=== PATIENT | female | born 1945 | race African-American/Black ===

== ENCOUNTER 2019-11-13 00:11 | Inpatient (IN) | payer MEDICARE, MEDICAID ==
[~2019-11-13] VITALS: Ht 167.6 cm; Wt 73.5 kg
[2019-11-13] VITALS (9 sets, daily range): BP systolic 128–157; BP diastolic 72–104
--- NOTE | 2019-11-13 00:11 | NUR ---
ED Nurse Note: PATIENT BROUGHT IN BY AMBULANCE SEDRICK RA 27 FROM HOME C/O RESPIRATORY DISTRESS AND AMS X 1730. DAUGHTER STATES WORSENING SYMPTOMS AFTERWARDS. RECENTLY DISCHARGED FROM [facility] ON MONDAY
--- NOTE | 2019-11-13 00:45 | NUR ---
ED Nurse Note: IV ACCESS ESTABLISHED; BLOOD COLLECTED; SENT DOWN TO LAB.
[2019-11-13 01:14] LABS: HEMATOCRIT 43.8 % (37.0-47.0); HEMOGLOBIN 14.1 G/DL (12.0-16.0); MEAN CORPUSCULAR VOLUME 92 FL (80-99); PLATELET COUNT 309 K/UL (150-450); RED BLOOD COUNT 4.74 M/UL (4.20-5.40); RED CELL DISTRIBUTION WIDTH 14.5 % (11.6-14.8); WHITE BLOOD COUNT 19.2 K/UL (4.8-10.8)
[2019-11-13 01:26] LABS: ANION GAP 16 mmol/L (5-15); BLOOD UREA NITROGEN 34 mg/dL (7-18); CALCIUM 10.1 MG/DL (8.5-10.1); CARBON DIOXIDE 22 MMOL/L (21-32); CHLORIDE 98 MMOL/L (98-107); POTASSIUM 5.2 MMOL/L (3.5-5.1); SODIUM 136 MMOL/L (136-145)
[2019-11-13 01:37] LABS: ALANINE AMINOTRANSFERASE 205 U/L (12-78); ALBUMIN 3.7 G/DL (3.4-5.0); ALBUMIN/GLOBULIN RATIO 0.6 (1.0-2.7); ALKALINE PHOSPHATASE 106 U/L (46-116); ASPARTATE AMINO TRANSFERASE 175 U/L (15-37); BILIRUBIN,TOTAL 1.6 MG/DL (0.2-1.0)
[2019-11-13 01:41] LABS: BILIRUBIN,DIRECT 0.2 MG/DL (0.0-0.3)
--- NOTE | 2019-11-13 01:56 | Emergency Room Report ---
History of Present Illness General Chief Complaint: Dyspnea/Respdistress Source: EMS Present Illness HPI 74-year-old female brought in by ambulance for respiratory distress. Patient's history is limited due to difficulty breathing. Patient has a history of ovarian carcinoma and congestive heart failure. As per EMS patient's family stated that she was altered mental status generalized weakness. Initial blood sugar of 123. IV was placed pickiness and team twelve-lead EKG with no changes. Allergies: Coded Allergies: No Known Allergies (Unverified , 11/13/19) Patient History Now: No Nursing Documentation-PMH Hx Cardiac Problems: Yes - CHF Hx Hypertension: Yes Hx Cancer: Yes - ovarian Review of Systems All Other Systems: limited - Due to shortness of breath Physical Exam Vital Signs Date Time Temp Pulse Resp B/P (MAP) Pulse Ox O2 Delivery O2 Flow Rate FiO2 11/13/19 00:08 98.4 89 22 154/104 (121) 88 Non-Rebreather 15.0 Sp02 EP Interpretation: reviewed General Appearance: well appearing, non-toxic, moderate distress Head: normocephalic, atraumatic Eyes: bilateral eye normal inspection ENT: hearing grossly normal, EOM grossly intact, moist mucus membranes Neck: supple Respiratory: chest non-tender, lungs clear, respiratory distress, rales, speaking full sentences Cardiovascular #1: regular rate, rhythm, normal capillary refill, edema Cardiovascular #2: 2+ radial (R), 2+ radial (L) Gastrointestinal: soft, non-distended Rectal: deferred Musculoskeletal: moves extm spontaneously, no lower extremity edema Neurologic: grossly normal Psychiatric: mood/affect normal Skin: warm/dry, normal turgor Procedures Critical Care Time Critical Care Time Critical care time included 30 minutes for reevaluation of respiratory distress , hypoxia. This did not include teachable, procedural billable time. Medical Decision Making ER Course Presents with respiratory distress found to have rales on exam. Patient with history of CHF and ovarian carcinoma. However history is limited due to difficulty breathing.Initial pulse ox noted to be 88% on nonrebreather. Differential includes ACS, acute NJ, PE, fluid overload, congestive heart failure exacerbation, pleural effusion, asthma, Order initial ABG to evaluate patient's oxygen status We will perform chest x-ray, lab testing, EKG. Lab Results Impression Patient's lab testing noted to have increased WBC count of 19.2, Chemistry noted to have mild CLARK, elevated C-reactive protein, ABG with PaO2 of 63. Chest X-Ray Diagnostic Results Chest X-Ray Diagnostic Results : Chest X-Ray Ordered: Yes # of Views/Limited/Complete: 1 View Indication: Shortness of Breath EP Interpretation: Yes Interpretation: no pneumothorax Impression: Other - Chest x-ray shows increased vascular markings on right lower lobe concerning for consolidation versus fluid overload. No signs of pneumothorax. Last Vital Signs Date Time Temp Pulse Resp B/P (MAP) Pulse Ox O2 Delivery O2 Flow Rate FiO2 11/13/19 00:08 98.4 89 22 154/104 (121) 88 Non-Rebreather 15.0 Reevaluation Impression Patient's initial ABG, patient placed on BiPAP. Will reevaluate. Noted decreased PaO2 patient's care discussed with Dr. Jones. Patient admitted for pneumonia, respiratory distress, CHF and fluid overload. Disposition: ADMITTED INPATIENT Scripts Hydroxychloroquine Sulfate (HYDROXYCHLOROQUINE SULFATE) 200 Mg Tablet 200 MG ORAL DAILY for 30 Days, #30 TAB Prov: Nikunj Jones MD 11/17/19 Gabapentin (Neurontin) 300 Mg Capsule 300 MG ORAL BID for 30 Days, #60 CAP Prov: Nikunj Jones MD 11/17/19 Folic Acid* (FOLIC ACID*) 1 Mg Tablet 1 MG ORAL DAILY for 30 Days, #30 TAB Prov: Nikunj Jones MD 11/17/19 Furosemide* (LASIX*) 20 Mg Tablet 20 MG ORAL DAILY for 30 Days, #30 TAB Prov: Nikunj Jones MD 11/17/19 Carvedilol (Coreg) 6.25 Mg Tablet 6.25 MG ORAL EVERY 12 HOURS for 30 Days, #60 TAB Prov: Nikunj Jones MD 11/17/19 Atorvastatin (Lipitor) 80 Mg Tablet 80 MG ORAL BEDTIME for 30 Days, #30 TAB Prov: Nikunj Jones MD 11/17/19 Aspirin* (ASPIRIN*) 81 Mg Tab.chew 81 MG ORAL DAILY for 30 Days, #30 TAB Prov: Nikunj Jones MD 11/17/19 Allopurinol* (ALLOPURINOL*) 100 Mg Tablet 300 MG ORAL DAILY for 30 Days, #30 TAB Prov: Nikunj Jones MD 11/17/19 Mateo Granado M.D. Nov 13, 2019 01:56
--- NOTE | 2019-11-13 01:56 | NUR ---
ED Nurse Note: XRAY AT BEDSIDE. RT AT BEDSIDE, PT PLACED ON BIPAP.
--- NOTE | 2019-11-13 02:00 | NUR ---
ED Nurse Note: attempted to collect urine. patient unable to urinate on bed marques. offered straight cath. patient and daughter refused. notified ermd.
[2019-11-13] MEDS ORDERED: Vancomycin 1.5 GM in NS 275 ML IVPB ONE (02:30)
[2019-11-13] MEDS ORDERED: Cefepime HCl 2 GM in NS 110 ML IV ONE (02:30)
[2019-11-13] MEDS ORDERED: POTASSIUM20 MEQ/100 IV (03:29)
[2019-11-13] MEDS ORDERED: OMEPRAZOLE20 M2 ORAL (03:29)
[2019-11-13] MEDS ORDERED: GABAPENTIN300 MG/61 ORAL (03:29)
[2019-11-13] MEDS ORDERED: LIPITOR80 MG ORAL (03:29)
[2019-11-13] MEDS ORDERED: DULOXETINE HCL30 MG PO (03:29)
[2019-11-13] MEDS ORDERED: FUROSEMIDE40 MG/5 ML ORAL (03:29)
[2019-11-13] MEDS ORDERED: METOPROLOL TART25 MG ORAL (03:29)
[2019-11-13] MEDS ORDERED: AMLODIPINE BESY10 MG ORAL (03:29)
[2019-11-13] MEDS ORDERED: HYDROXYCHLOROQ200 M1 PO (03:29)
[2019-11-13] MEDS ORDERED: FOLIC ACID1 MG ORAL (03:29)
--- NOTE | 2019-11-13 03:30 | NUR ---
ED Nurse Note: patient sleeping in bed with no acute distress family at bedside.
[2019-11-13] MEDS ORDERED: METHOTREXATE2.5 MG PO (03:31)
--- NOTE | 2019-11-13 04:00 | NUR ---
ED Nurse Note: repeat troponin collected by photographic laboratory technician.
--- NOTE | 2019-11-13 05:29 | NUR ---
ED Nurse Note: report given to asad anguiano. patient to be admitted to [facility] under the care of breanne richard. endorsed pending urine sample
--- NOTE | 2019-11-13 05:30 | NUR ---
TRANSFER TO FLOOR: Patient transferred to [facility] as ordered, per breanne. patient transferred to unit via gurney with amarjit rn and rt. pt sent with all belongings and admission packet.
--- NOTE | 2019-11-13 06:00 | NUR ---
NURSE NOTES: RECEIVED PATIENT FROM ER VIA GURNEY ACCOMPANIED BY MAGDALENE CAMARA RT, PLACED PATIENT TO BED.BIPAP 10/5 FIO2 40% WELL TOLERATED NO SOB NOTED ,VITAL SIGNS WITH BP 157/97 HR 86 SR AFEBRILE 97.3, AROUSABLE TO NAME AND PAINFUL STIMULI,SKIN IS INTACT.PAGED DR PRITCHARD FOR ADMISSION ORDERS.
[2019-11-13] MEDS ORDERED: NORCO 5-325 TA1 EACH ORAL (06:46)
--- NOTE | 2019-11-13 07:20 | NUR ---
NURSE NOTES: RECEIVED BED SIDE REPORT FROM ISADORA RN OF [employer]. RECEIVED PT WITH HOB ELEVATED 45 DEGREE USING BIPAP 10/5 ,FIO2 @ 40%,O2 SAT 100%. PT ABLE TO FOLLOW SIMPLE COMMANDS.FULL BODY ASSESSMENT DONE ,NO SKIN BREAK DOWN NOTED AT THIS .PT HAD ABG,S DONE PER M.D ORDERS.A WAITING FOR ABG,S RESULTS . WILL CONT TO MONITOR.
--- NOTE | 2019-11-13 08:50 | NUR ---
NURSE NOTES:PLACED A TELEPHONE CALL TO DR PRITCHARD AND MADE AWARE AND NOTIFIED REGARDING NEW ABG REPORT .M.D ORDER TO D/C BIPAP AND TO PLACE PT ON 2L/MINTS VIA N/C AND REASSESSED ABG,S IN 2 HRS,ALSO PIPAP PRNS ONLY . ALL NEW ORDERS NOTED AND CARRIED OUT. SOLEDAD SILVER REMOVED BIPAP AND PROVIDE O2 at 2 l/mints via N/C PER M.D ORDERS.WILL CONT TO MONITOR.
[2019-11-13 11:24] LABS: APPEARANCE,URINE CLEAR; BILIRUBIN, URINE NEGATIVE (NEGATIVE); GLUCOSE, URINE (UA) NEGATIVE (NEGATIVE); KETONES,URINE 1+ (NEGATIVE); LEUKOCYTE ESTERASE ,URINE 2+ (NEGATIVE); NITRITE,URINE NEGATIVE (NEGATIVE); PH,URINE 5 (4.5-8.0); PROTEIN,URINE 3+ (NEGATIVE); UROBILINOGEN,URINE NORMAL MG/DL (0.0-1.0)
--- NOTE | 2019-11-13 11:30 | NUR ---
NURSE NOTES:PLACED A TELEPHONE CALL TO DR PRITCHARD AND MADE AWARE AND NOTIFIED REGARDING NEW ABG,S RESULT. AND PT O2 SAT IS 98% ON 2L/MINTS VIA N/C.M.D ORDER TO KEEP PT ON O2 @ 2L/MITS VIA N/C. WILL CONT TO MONITOR.
[2019-11-13 11:44] LABS: COLOR,URINE YELLOW
--- NOTE | 2019-11-13 12:09 | NUR ---
CASE MANAGEMENT:INITIAL REVIEW 74 YR OLD FEMALE BIBA FROM HOME CC;SOB. RESPIRATORY DISTRESS. SI;HYPOXIA. PNA. NSTEMI. FLUID OVERLOAD. 98.5 89 22 154/102 88% 15 L NRB WBC 19.2 K+ 5.2 BUN 34 CREAT 2.0 AST 175 ALT 205 BNP 77292 TROP 1 0.755 IS;CEFEPIME IV X1 VANCOMYCIN IV X1 ADMITTED TO STEP DOWN UNIT SDU STATUS DCP; FROM HOME
--- NOTE | 2019-11-13 13:25 | Diagnostic Imaging Report ---
Indication: Dyspnea Comparison: None A single view chest radiograph was obtained. Findings: No definite infiltrate or pulmonary vascular congestion identified. The heart is enlarged. The aorta is mildly enlarged consistent with atherosclerotic vascular disease. The bones are osteopenic. Impression: No acute disease. No overt CHF
[2019-11-13] MEDS ORDERED: Furosemide 40mg tab ORAL SCH (14:45)
--- NOTE | 2019-11-13 18:31 | Consultation ---
Consult Note Consult Note asked to eval at the request of dr Jones for renal failure 74 y/o admitted for respiratory dificulty This is a 74-year-old female admitted to the hospital in respiratory distress. She was placed on a BiPAP. This morning, she is feeling significantly better and her BiPAP has rodriguez removed. The patient states she has a previous history of ovarian cancer and also CHF. She is unable to provide any further medication or list of her current medications. patient takes amlodipine, Lipitor, folic acid, Lasix, Neurontin, Plaquenil, metoprolol, and Protonix. PAST HISTORY: Ovarian carcinoma, history of CHF. . Assessment/Plan Renal failure : Acute vs Chronic, associate: HyperKalemia UTI / Proteinuria / Leukocytosis Elevated Troponin and LFTs elevated troponin Adjust BP meds- PRN BP meds Urine studies Per orders DC lasix: CXR neg 2D echo ISSA kidney Slow Hydrate Nazario Vora MD Nov 13, 2019 18:31
[2019-11-13] MEDS ORDERED: HydrALAZINE 25mg tab ORAL PRN (18:53)
--- NOTE | 2019-11-13 19:25 | NUR ---
HAND-OFF: Report given to .KAMILLE ISSA.
--- NOTE | 2019-11-13 19:26 | NUR ---
NURSE NOTES: Received patient from MAEGAN Villalobos. patient is observed sleeping in bed, arousable to voice, AOX 3, denies pain at this time. patient is on 2 L O2 via NC, tolerating well, saturating at 97%, no s/sx of respiratory distress noted at this time. dispatch machine runner shows SR at this time with HR of 98. no acute cardiac distress noted at this time. RFA 20 g IV site is patent and intact, asymptomatic. bed in lowest position and locked, siderails up X3, call light within reach. will continue to monitor.
--- NOTE | 2019-11-13 20:09 | Cardiology Progress Note ---
Assessment/Plan Assessment/Plan [id number] Objective Last 24 Hour Vital Signs Date Time Temp Pulse Resp B/P (MAP) Pulse Ox O2 Delivery O2 Flow Rate FiO2 11/13/19 16:00 95 11/13/19 16:00 2.0 11/13/19 16:00 Bi-pap 11/13/19 15:55 89 137/90 11/13/19 12:00 86 11/13/19 12:00 99.4 89 24 137/90 (106) 11/13/19 12:00 Bi-pap 11/13/19 12:00 2.0 11/13/19 12:00 Bi-pap 11/13/19 11:30 98 Nasal Cannula 2.0 11/13/19 09:48 Bi-pap 11/13/19 08:47 78 36 100 Bi-Pap 40 11/13/19 08:00 78 11/13/19 08:00 Bi-pap 11/13/19 08:00 99.3 79 30 134/91 (105) 100 11/13/19 07:45 Bi-pap 11/13/19 07:24 78 36 100 Facial 40 11/13/19 06:33 82 11/13/19 05:45 97.3 86 20 157/97 (117) 96 11/13/19 05:45 40 11/13/19 05:30 98.4 73 20 142/100 99 15.0 50 11/13/19 05:00 98.4 73 20 142/100 99 15.0 50 11/13/19 04:00 98.4 72 25 146/72 98 15.0 50 11/13/19 03:00 98.4 66 20 128/98 100 15.0 50 11/13/19 02:08 80 31 100 Facial 50 11/13/19 02:00 98.4 66 22 134/98 88 Room Air 15.0 11/13/19 00:30 89 22 Room Air 15.0 11/13/19 00:30 98.4 22 154/104 88 Room Air 15.0 11/13/19 00:30 98.4 72 22 154/104 88 Room Air 15.0 11/13/19 00:08 98.4 89 22 154/104 (121) 88 Non-Rebreather 15.0 Intake and Output 11/12/19 11/13/19 19:00 07:00 # Voids 1 Laboratory Tests Test 11/13/19 00:40 11/13/19 00:44 11/13/19 03:49 11/13/19 04:01 Arterial Blood pH 7.512 (7.350-7.450) 7.463 (7.350-7.450) Arterial Blood Partial Pressure CO2 24.8 mmHg (35.0-45.0) *L 28.4 mmHg (35.0-45.0) L Arterial Blood Partial Pressure O2 63.4 mmHg (75.0-100.0) L 134.2 mmHg (75.0-100.0) H Arterial Blood HCO3 19.4 mmol/L (22.0-26.0) L 19.9 mmol/L (22.0-26.0) L Arterial Blood Oxygen Saturation 90.6 % (95-100) L 98.5 % (95-100) Arterial Blood Base Excess -2.0 (-2-2) -2.7 (-2-2) L Tony Test Positive Positive White Blood Count 19.2 K/UL (4.8-10.8) H Red Blood Count 4.74 M/UL (4.20-5.40) Hemoglobin 14.1 G/DL (12.0-16.0) Hematocrit 43.8 % (37.0-47.0) Mean Corpuscular Volume 92 FL (80-99) Mean Corpuscular Hemoglobin 29.8 PG (27.0-31.0) Mean Corpuscular Hemoglobin Concent 32.2 G/DL (32.0-36.0) Red Cell Distribution Width 14.5 % (11.6-14.8) Platelet Count 309 K/UL (150-450) Mean Platelet Volume 7.1 FL (6.5-10.1) Neutrophils (%) (Auto) % (45.0-75.0) Lymphocytes (%) (Auto) % (20.0-45.0) Monocytes (%) (Auto) % (1.0-10.0) Eosinophils (%) (Auto) % (0.0-3.0) Basophils (%) (Auto) % (0.0-2.0) Differential Total Cells Counted 100 Neutrophils % (Manual) 79 % (45-75) H Lymphocytes % (Manual) 15 % (20-45) L Monocytes % (Manual) 6 % (1-10) Eosinophils % (Manual) 0 % (0-3) Basophils % (Manual) 0 % (0-2) Band Neutrophils 0 % (0-8) Platelet Estimate Adequate Platelet Morphology Normal Sodium Level 136 MMOL/L (136-145) Potassium Level 5.2 MMOL/L (3.5-5.1) H Chloride Level 98 MMOL/L (98-107) Carbon Dioxide Level 22 MMOL/L (21-32) Anion Gap 16 mmol/L (5-15) H Blood Urea Nitrogen 34 mg/dL (7-18) H Creatinine 2.0 MG/DL (0.55-1.30) H Estimat Glomerular Filtration Rate mL/min (>60) Glucose Level 98 MG/DL (74-106) Calcium Level 10.1 MG/DL (8.5-10.1) Total Bilirubin 1.6 MG/DL (0.2-1.0) H Direct Bilirubin 0.2 MG/DL (0.0-0.3) Aspartate Amino Transf (AST/SGOT) 175 U/L (15-37) H Alanine Aminotransferase (ALT/SGPT) 205 U/L (12-78) H Alkaline Phosphatase 106 U/L (46-116) Troponin I 0.755 ng/mL (0.000-0.056) 0.709 ng/mL (0.000-0.056) Pro-B-Type Natriuretic Peptide 85202 pg/mL (0-125) H Total Protein 9.7 G/DL (6.4-8.2) H Albumin 3.7 G/DL (3.4-5.0) Globulin 6.0 g/dL Albumin/Globulin Ratio 0.6 (1.0-2.7) L Test 11/13/19 07:08 11/13/19 10:00 11/13/19 10:55 11/13/19 16:40 Arterial Blood pH 7.436 (7.350-7.450) 7.497 (7.350-7.450) Arterial Blood Partial Pressure CO2 28.6 mmHg (35.0-45.0) L 23.6 mmHg (35.0-45.0) *L Arterial Blood Partial Pressure O2 101.8 mmHg (75.0-100.0) H 72.6 mmHg (75.0-100.0) L Arterial Blood HCO3 18.8 mmol/L (22.0-26.0) L 17.9 mmol/L (22.0-26.0) *L Arterial Blood Oxygen Saturation 97.4 % (95-100) 94.2 % (95-100) L Arterial Blood Base Excess -4.2 (-2-2) L -3.6 (-2-2) L Tony Test Positive Positive Urine Color Yellow Urine Appearance Clear Urine pH 5 (4.5-8.0) Urine Specific [place] 1.025 (1.005-1.035) Urine Protein 3+ (NEGATIVE) H Urine Glucose (UA) Negative (NEGATIVE) Urine Ketones 1+ (NEGATIVE) H Urine Blood 1+ (NEGATIVE) H Urine Nitrite Negative (NEGATIVE) Urine Bilirubin Negative (NEGATIVE) Urine Urobilinogen Normal MG/DL (0.0-1.0) Urine Leukocyte Esterase 2+ (NEGATIVE) H Urine RBC 2-4 /HPF (0 - 2) H Urine WBC 2-4 /HPF (0 - 2) Urine Squamous Epithelial Cells Moderate /LPF (NONE/OCC) H Urine Bacteria Few /HPF (NONE) Urine Fine Granular Casts 0-2 /LPF (NONE) H Urine Opiates Screen Negative (NEGATIVE) Urine Barbiturates Screen Positive (NEGATIVE) H Phencyclidine (PCP) Screen Negative (NEGATIVE) Urine Amphetamines Screen Negative (NEGATIVE) Urine Benzodiazepines Screen Negative (NEGATIVE) Urine Cocaine Screen Negative (NEGATIVE) Urine Marijuana (THC) Screen Negative (NEGATIVE) Carcinoembryonic Antigen Pending CA 19-9 Antigen Pending Rasheed Shaikh MD Nov 13, 2019 20:09
[2019-11-13] MEDS: D5NS 1,000 ML IV SCH (20:31)
[2019-11-13] MEDS ORDERED: Atorvastatin 80mg tab ORAL SCH (21:00)
[2019-11-13] MEDS: Nitroglycerin Patch 0.4mg TDERMAL SCH (21:24)
[2019-11-14] VITALS: BP 129/73
[2019-11-14 04:00] VITALS: BP 116/72
[2019-11-14 05:01] LABS: CREATINE KINASE 40 U/L (26-308)
[2019-11-14 05:14] LABS: WHITE BLOOD COUNT 14.3 K/UL (4.8-10.8)
[2019-11-14 05:15] LABS: HEMATOCRIT 37.5 % (37.0-47.0); HEMOGLOBIN 12.3 G/DL (12.0-16.0); MEAN CORPUSCULAR VOLUME 92 FL (80-99); PLATELET COUNT 286 K/UL (150-450); RED BLOOD COUNT 4.09 M/UL (4.20-5.40); RED CELL DISTRIBUTION WIDTH 14.8 % (11.6-14.8)
[2019-11-14 05:17] LABS: ALANINE AMINOTRANSFERASE 121 U/L (12-78); ALBUMIN 2.2 G/DL (3.4-5.0); ALBUMIN/GLOBULIN RATIO 0.5 (1.0-2.7); ALKALINE PHOSPHATASE 79 U/L (46-116); ANION GAP 11 mmol/L (5-15); ASPARTATE AMINO TRANSFERASE 69 U/L (15-37); BILIRUBIN,TOTAL 1.2 MG/DL (0.2-1.0); BLOOD UREA NITROGEN 32 mg/dL (7-18); CALCIUM 8.5 MG/DL (8.5-10.1); CARBON DIOXIDE 23 MMOL/L (21-32); CHLORIDE 104 MMOL/L (98-107); CHOLESTEROL 133 MG/DL (< 200); CREATININE 1.7 MG/DL (0.55-1.30); GAMMA GLUTAMYL TRANSPEPTIDASE 54 U/L (5-85); HDL CHOLESTEROL 30 MG/DL (40-60); POTASSIUM 4.1 MMOL/L (3.5-5.1); SODIUM 138 MMOL/L (136-145); TRIGLYCERIDES 87 MG/DL (30-150)
--- NOTE | 2019-11-14 05:32 | NUR ---
NURSE NOTES: Received phone call from Rickey regarding patient's troponin level of 1.028. will inform Dr. Shaikh.
--- NOTE | 2019-11-14 05:43 | NUR ---
NURSE NOTES: informed Dr. Shaikh regarding patient's troponin level of 1.028. will carry out orders as per .
[2019-11-14 05:51] LABS: BILIRUBIN,DIRECT 0.4 MG/DL (0.0-0.3)
--- NOTE | 2019-11-14 07:03 | Pulmonology Progress Note ---
Assessment/Plan Assessment/Plan Renal failure : Acute vs Chronic HyperKalemia UTI / Proteinuria / Leukocytosis Elevated Troponin and LFTs PLAN Await cardiology and nephrology followup Off BiPAP now Continue present medications Await AM labs Subjective Interval Events: Denies new problems Constitutional: Reports: no symptoms HEENT: Repors: no symptoms Respiratory: Reports: no symptoms Cardiovascular: Reports: no symptoms Gastrointestinal/Abdominal: Reports: no symptoms Allergies: Coded Allergies: No Known Allergies (Unverified , 11/13/19) Objective Last 24 Hour Vital Signs Date Time Temp Pulse Resp B/P (MAP) Pulse Ox O2 Delivery O2 Flow Rate FiO2 11/14/19 04:00 82 11/14/19 04:00 Nasal Cannula 2.0 11/14/19 04:00 2.0 11/14/19 04:00 97.7 74 26 116/72 (87) 98 11/14/19 00:00 2.0 11/14/19 00:00 Nasal Cannula 2.0 11/14/19 00:00 84 11/14/19 00:00 98.8 80 28 129/73 (91) 97 11/13/19 21:24 133/81 11/13/19 21:24 97 133/81 11/13/19 20:00 98.1 97 28 133/81 (98) 97 11/13/19 20:00 Bi-pap 11/13/19 20:00 2.0 11/13/19 20:00 98 11/13/19 19:07 98 Nasal Cannula 2.0 28 11/13/19 16:00 95 11/13/19 16:00 2.0 11/13/19 16:00 Bi-pap 11/13/19 15:55 89 137/90 11/13/19 12:00 86 11/13/19 12:00 99.4 89 24 137/90 (106) 11/13/19 12:00 Bi-pap 11/13/19 12:00 2.0 11/13/19 12:00 Bi-pap 11/13/19 11:30 98 Nasal Cannula 2.0 11/13/19 09:48 Bi-pap 11/13/19 08:47 78 36 100 Bi-Pap 40 11/13/19 08:00 78 11/13/19 08:00 Bi-pap 11/13/19 08:00 99.3 79 30 134/91 (105) 100 11/13/19 07:45 Bi-pap 11/13/19 07:24 78 36 100 Facial 40 Intake and Output 11/13/19 11/14/19 19:00 07:00 Intake Total 700 ml 715 ml Output Total 600 ml 100 ml Balance 100 ml 615 ml Intake Oral 700 ml 240 ml IV Total 475 ml Output Urine Total 600 ml 100 ml # Voids 2 2 # Bowel Movements 6 1 General Appearance: no acute distress HEENT: normocephalic Respiratory/Chest: chest wall non-tender, decreased breath sounds Cardiovascular: normal peripheral pulses Abdomen: normal bowel sounds Laboratory Tests 11/13/19 07:08: Arterial Blood pH 7.436, Arterial Blood Partial Pressure CO2 28.6L, Arterial Blood Partial Pressure O2 101.8H, Arterial Blood HCO3 18.8L, Arterial Blood Oxygen Saturation 97.4, Arterial Blood Base Excess -4.2L, Tony Test Positive 11/13/19 10:00: Urine Color Yellow, Urine Appearance Clear, Urine pH 5, Urine Specific [place] 1.025, Urine Protein 3+H, Urine Glucose (UA) Negative, Urine Ketones 1+H, Urine Blood 1+H, Urine Nitrite Negative, Urine Bilirubin Negative, Urine Urobilinogen Normal, Urine Leukocyte Esterase 2+H, Urine RBC 2-4H, Urine WBC 2-4, Urine Squamous Epithelial Cells ModerateH, Urine Bacteria Few, Urine Fine Granular Casts 0-2H, Urine Opiates Screen Negative, Urine Barbiturates Screen PositiveH, Phencyclidine (PCP) Screen Negative, Urine Amphetamines Screen Negative, Urine Benzodiazepines Screen Negative, Urine Cocaine Screen Negative, Urine Marijuana (THC) Screen Negative 11/13/19 10:55: Arterial Blood pH 7.497H, Arterial Blood Partial Pressure CO2 23.6*L, Arterial Blood Partial Pressure O2 72.6L, Arterial Blood HCO3 17.9*L, Arterial Blood Oxygen Saturation 94.2L, Arterial Blood Base Excess -3.6L, Tony Test Positive 11/13/19 16:40: Carcinoembryonic Antigen [Pending], CA 19-9 Antigen [Pending] 11/14/19 03:40: White Blood Count 14.3H, Corrected White Blood Count , Red Blood Count 4.09L, Hemoglobin 12.3, Hematocrit 37.5, Mean Corpuscular Volume 92, Mean Corpuscular Hemoglobin 30.1, Mean Corpuscular Hemoglobin Concent 32.8, Red Cell Distribution Width 14.8, Platelet Count 286, Mean Platelet Volume 7.4, Neutrophils (%) (Auto) , Lymphocytes (%) (Auto) , Monocytes (%) (Auto) , Eosinophils (%) (Auto) , Basophils (%) (Auto) , Sodium Level 138, Potassium Level 4.1, Chloride Level 104, Carbon Dioxide Level 23, Anion Gap 11, Blood Urea Nitrogen 32H, Creatinine 1.7H, Estimat Glomerular Filtration Rate , Glucose Level 133H, Hemoglobin A1c 5.7, Uric Acid 11.1H, Calcium Level 8.5, Phosphorus Level 4.0, Magnesium Level 1.7L, Total Bilirubin 1.2H, Direct Bilirubin 0.4H, Gamma Glutamyl Transpeptidase 54, Aspartate Amino Transf (AST/ SGOT) 69H, Alanine Aminotransferase (ALT/SGPT) 121H, Alkaline Phosphatase 79, Total Creatine Kinase 40, Troponin I 1.028H, C-Reactive Protein, Quantitative [ Pending], Pro-B-Type Natriuretic Peptide [Pending], Total Protein 6.8, Albumin 2.2L, Globulin 4.6, Albumin/Globulin Ratio 0.5L, Triglycerides Level 87, Cholesterol Level 133, LDL Cholesterol 80, HDL Cholesterol 30L, Cholesterol/HDL Ratio 4.4, Vitamin B12 Level 1427H, Folate [Pending], Thyroid Stimulating Hormone (TSH) 1.174 Current Medications Medications (Trade) Dose Ordered Sig/Ronn Route PRN Reason Start Time Stop Time Status Last Admin Dose Admin Amlodipine Besylate (Norvasc) 10 mg DAILY ORAL 11/14/19 09:00 12/13/19 14:29 Aspirin (ASA) 81 mg DAILY ORAL 11/14/19 09:00 12/14/19 08:59 Atorvastatin Calcium (Lipitor) 10 mg BEDTIME ORAL 11/13/19 21:00 12/13/19 20:59 11/13/19 21:24 Dextrose/Sodium Chloride 1,000 ml @ 50 mls/hr Q20H IV 11/13/19 20:00 12/13/19 19:59 11/13/19 20:31 Docusate Sodium (Colace) 100 mg TWICE A DAY ORAL 11/14/19 09:00 12/14/19 08:59 Folic Acid (Folate) 1 mg DAILY ORAL 11/14/19 09:00 12/14/19 08:59 Gabapentin (Neurontin) 300 mg BID ORAL 11/13/19 15:00 12/13/19 14:59 11/13/19 15:56 Hydralazine HCl (Apresoline) 25 mg Q4H PRN ORAL bp over 160 syst 11/13/19 18:53 12/13/19 18:52 Hydroxychloroquine Sulfate (Plaquenil) 200 mg TWICE A DAY ORAL 11/13/19 18:00 12/13/19 17:59 11/13/19 17:57 Metoprolol Tartrate (Lopressor) 25 mg Q12HR ORAL 11/13/19 21:00 12/13/19 20:59 11/13/19 21:24 Nitroglycerin (Ntg) 1 patch Q24H TDERMAL 11/13/19 21:00 12/13/19 20:59 11/13/19 21:24 Pantoprazole (Protonix) 40 mg Q12HR ORAL 11/13/19 21:00 12/13/19 14:44 11/13/19 21:24 Nikunj Jones MD Nov 14, 2019 07:03
--- NOTE | 2019-11-14 07:16 | History and Physical Report ---
DATE OF ADMISSION: 11/13/2019 HISTORY OF PRESENT ILLNESS: This is a 74-year-old female admitted to the hospital in respiratory distress. She was placed on a BiPAP. This morning, she is feeling significantly better and her BiPAP has rodriguez removed. The patient states she has a previous history of ovarian cancer and also CHF. She is unable to provide any further medication or list of her current medications. I have been able to obtain a list and noted that the patient takes amlodipine, Lipitor, folic acid, Lasix, Neurontin, Plaquenil, metoprolol, and Protonix. REVIEW OF SYSTEMS: Denies any headaches, hematemesis, melena, hematochezia, night sweats, or weight loss. PAST HISTORY: Ovarian carcinoma, history of CHF. SURGERIES: The patient denies. SOCIAL HISTORY: She lives at home with family. PHYSICAL EXAMINATION: GENERAL: An elderly female. HEENT: Unremarkable. LUNGS: Clear breath sounds bilaterally. CARDIAC: Normal heart sounds. ABDOMEN: Soft. EXTREMITIES: There is no edema. VITAL SIGNS: Blood pressure is 130/70, heart rate is 84, respirations , she is afebrile. LABORATORY DATA: Lab testing shows white count 19,000, otherwise normal CBC. Creatinine is 2, BUN 34. Troponin 0.75. Potassium 5.2. IMAGING STUDIES: X-ray of chest was obtained, which shows no evidence of CHF. IMPRESSION: 1. Hyperkalemia. 2. Renal failure. 3. Leukocytosis. 4. History of ovarian CA. 5. CHF. 6. Respiratory failure. DISCUSSION: Admit to the hospital. We will discontinue BiPAP. Continue home medications. I note the urine tox positive for barbiturates. We will minimize sedation. Hold pain medications. We will consult Nephrology and Hematology/Oncology. We will also consult Cardiology. Continue home medications. Diurese. Discontinue BiPAP. We will follow. Nikunj Jones M.D. DR: ERIC JOB#: [id number] CC:
--- NOTE | 2019-11-14 07:21 | Consultation ---
DATE OF CONSULTATION: 11/13/2019 CARDIOLOGY CONSULTATION CONSULTING PHYSICIAN: Rasheed Shaikh M.D. REFERRING PHYSICIAN: Nikunj Jones M.D. REASON FOR REFERRAL: Shortness of breath. HISTORY OF PRESENT ILLNESS: This is an elderly female who is usually followed by Hospital who presented to the hospital here at [facility] because of shortness of breath. She seems to have shortness of breath for approximately 3 weeks and finally when she walked outside her house, she was unable to do it any more. She has 2 pillow usage. There is no PND. She has dyspnea on exertion. She has a sensation of a band around her chest that has been present for the past few years. She is unable to lie down on the left side because of that. She really does not have any exertional related chest pain as I understand it, but just a purely shortness of breath. She has occasional palpitations. No dizziness or lightheadedness when she stands up. She has had some fevers in the past few days. She has had minimal coughing, but no wheezing. PAST MEDICAL HISTORY: Positive for history of hospitalization previously in 2017 for shortness of breath, felt to be secondary to bronchitis and sinusitis. She has a history of cardiomyopathy, ejection fraction 35%, history of hypertension, hyperlipidemia, chronic kidney disease stage 2, and degenerative joint disease. Her last stress test in 2017 did not show any ischemia, but she did have ejection fraction of 35%. She is followed by Dr. Escalante and Dr. Ly. Also, pulmonary hypertension. Chart indicates she has a history of coronary disease with angioplasties performed by [facility] by Dr. Castillo. MEDICATIONS: The patient's medications at home include Plaquenil, she takes folic acid, methotrexate 25 mg 6 times a week, Cymbalta 30 mg twice a day, omeprazole 20 mg daily, Norvasc 10 mg daily, metoprolol 25 mg daily, Lasix 40 mg daily, potassium chloride 20 mEq a day, Lipitor 80 mg daily, gabapentin 300 mg 2 times daily, and hydrocodone as well. ALLERGIES: She has no known drug allergies. SOCIAL HISTORY: She denies any smoking, tobacco, or drug use. She lives at home. She has 1 daughter. REVIEW OF SYSTEMS: GASTROINTESTINAL: She did have some diarrhea and some nausea. GENITOURINARY: She denies. PULMONARY: Positive for some coughing and some wheezing, but not much. CONSTITUTIONAL: In the past denies. NEUROLOGIC: She denies. PHYSICAL EXAMINATION: GENERAL: Shows to be an elderly female, in no respiratory distress. HEENT: Unremarkable. NECK: Supple. No jugular venous distention. No abdominojugular reflux noted. LUNGS: Crackles noted on the right base. CARDIAC: Regular rate and rhythm. No heaves, thrills, or gallops noted. ABDOMEN: Soft and nontender. Positive bowel sounds. EXTREMITIES: There is no edema. NEUROLOGIC: She is awake and responsive. LABORATORY AND DIAGNOSTIC DATA: Laboratory values, white count of 19.2, hemoglobin 14.1, and platelet count 309,000. Blood gases, she has had multiple today with the latest showing a pH of 7.497, pCO2 of 24, pO2 of 73, and bicarbonate of 17. Her last sodium is 136, potassium 5.2, chloride 98, bicarbonate of 34, creatinine 2.0, and glucose is 98. Liver function tests, AST is elevated at 175, ALT of 205, and alkaline phosphatase is 105. Troponin is 0.755 and 0.709. ProBNP of 29,000. Total protein 9.7, albumin of 3.7, and gamma globulins at 6.0. Urine barbiturates are positive. Urinalysis shows 2 to 4 rbc's, 2 to 4 wbc's, 2+ leukocyte esterase. A chest x-ray performed shows no definite infiltrates or vascular congestion. The heart is enlarged. Aorta is mildly enlarged consistent with atherosclerotic vascular disease. No definite acute infiltrate was noted. She had her telemetry that shows sinus rhythm. EKG is normal sinus rhythm as well with nonspecific T-wave changes with premature ventricular complexes noted. ASSESSMENT: 1. Reported history of cardiomyopathy. 2. Shortness of breath, secondary to congestive heart failure, rule out an additional infectious cause. 3. Renal insufficiency. 4. Abnormal cardiac enzymes. 5. History of coronary artery disease with apparently prior documented angioplasties. 6. Systemic hypertension. 7. Hyperlipidemia. 8. Degenerative joint disease. PLAN: This patient was seen in cardiac consultation. Echocardiogram will be ordered. The patient will be continued on diuretics as long as the renal function allows. An echocardiogram will be ordered as there seemed to be some discrepancy between the previously performed myocardial perfusion reported at [facility] with ejection fraction of 35% and an echocardiogram that had shown ejection fraction of 50 to 60%. We will follow up on those reports. Diuretics will be continued. Rasheed Shaikh M.D. DR: MONI JOB#: [id number] CC:
--- NOTE | 2019-11-14 07:40 | Cardiology Progress Note ---
Assessment/Plan Assessment/Plan 1. Reported history of cardiomyopathy. 2. Shortness of breath, secondary to congestive heart failure, rule out an additional infectious cause. 3. Renal insufficiency. 4. Abnormal cardiac enzymes / NSTEMI 5. History of coronary artery disease with apparently prior documented angioplasties. 6. Systemic hypertension. 7. Hyperlipidemia. 8. Degenerative joint disease. 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 at [facility] , saw her 1 week ago per pt await echo repeat cardaic enzyme and ekg and started on ecotrin and i s on statin she indicates had some cp earleir but nto nwo resooved quickly ekg not yet performed tele reviwed seem sinus Subjective Cardiovascular: Reports: chest pain - some cp earlier not now ; Denies: lightheadedness Respiratory: Reports: cough, shortness of breath, sputum Gastrointestinal/Abdominal: Denies: abdominal pain Genitourinary: Denies: burning Objective Last 24 Hour Vital Signs Date Time Temp Pulse Resp B/P (MAP) Pulse Ox O2 Delivery O2 Flow Rate FiO2 11/14/19 04:00 82 11/14/19 04:00 Nasal Cannula 2.0 11/14/19 04:00 2.0 11/14/19 04:00 97.7 74 26 116/72 (87) 98 11/14/19 00:00 2.0 11/14/19 00:00 Nasal Cannula 2.0 11/14/19 00:00 84 11/14/19 00:00 98.8 80 28 129/73 (91) 97 11/13/19 21:24 133/81 11/13/19 21:24 97 133/81 11/13/19 20:00 98.1 97 28 133/81 (98) 97 11/13/19 20:00 Bi-pap 11/13/19 20:00 2.0 11/13/19 20:00 98 11/13/19 19:07 98 Nasal Cannula 2.0 28 11/13/19 16:00 95 11/13/19 16:00 2.0 11/13/19 16:00 Bi-pap 11/13/19 15:55 89 137/90 11/13/19 12:00 86 11/13/19 12:00 99.4 89 24 137/90 (106) 11/13/19 12:00 Bi-pap 11/13/19 12:00 2.0 11/13/19 12:00 Bi-pap 11/13/19 11:30 98 Nasal Cannula 2.0 11/13/19 09:48 Bi-pap 11/13/19 08:47 78 36 100 Bi-Pap 40 11/13/19 08:00 78 11/13/19 08:00 Bi-pap 11/13/19 08:00 99.3 79 30 134/91 (105) 100 11/13/19 07:45 Bi-pap General Appearance: no apparent distress, alert Neck: supple Cardiovascular: normal rate Respiratory/Chest: crackles/rales - righ side Abdomen: normal bowel sounds, non tender, soft Extremities: no swelling Intake and Output 11/13/19 11/14/19 19:00 07:00 Intake Total 700 ml 765 ml Output Total 600 ml 100 ml Balance 100 ml 665 ml Intake Oral 700 ml 240 ml IV Total 525 ml Output Urine Total 600 ml 100 ml # Voids 2 2 # Bowel Movements 6 1 Laboratory Tests Test 11/13/19 10:00 11/13/19 10:55 11/13/19 16:40 11/14/19 03:40 Urine Color Yellow Urine Appearance Clear Urine pH 5 (4.5-8.0) Urine Specific [place] 1.025 (1.005-1.035) Urine Protein 3+ (NEGATIVE) H Urine Glucose (UA) Negative (NEGATIVE) Urine Ketones 1+ (NEGATIVE) H Urine Blood 1+ (NEGATIVE) H Urine Nitrite Negative (NEGATIVE) Urine Bilirubin Negative (NEGATIVE) Urine Urobilinogen Normal MG/DL (0.0-1.0) Urine Leukocyte Esterase 2+ (NEGATIVE) H Urine RBC 2-4 /HPF (0 - 2) H Urine WBC 2-4 /HPF (0 - 2) Urine Squamous Epithelial Cells Moderate /LPF (NONE/OCC) H Urine Bacteria Few /HPF (NONE) Urine Fine Granular Casts 0-2 /LPF (NONE) H Urine Opiates Screen Negative (NEGATIVE) Urine Barbiturates Screen Positive (NEGATIVE) H Phencyclidine (PCP) Screen Negative (NEGATIVE) Urine Amphetamines Screen Negative (NEGATIVE) Urine Benzodiazepines Screen Negative (NEGATIVE) Urine Cocaine Screen Negative (NEGATIVE) Urine Marijuana (THC) Screen Negative (NEGATIVE) Arterial Blood pH 7.497 (7.350-7.450) Arterial Blood Partial Pressure CO2 23.6 mmHg (35.0-45.0) *L Arterial Blood Partial Pressure O2 72.6 mmHg (75.0-100.0) L Arterial Blood HCO3 17.9 mmol/L (22.0-26.0) *L Arterial Blood Oxygen Saturation 94.2 % (95-100) L Arterial Blood Base Excess -3.6 (-2-2) L Tony Test Positive Carcinoembryonic Antigen Pending CA 19-9 Antigen Pending White Blood Count 14.3 K/UL (4.8-10.8) H Corrected White Blood Count K/UL Red Blood Count 4.09 M/UL (4.20-5.40) L Hemoglobin 12.3 G/DL (12.0-16.0) Hematocrit 37.5 % (37.0-47.0) Mean Corpuscular Volume 92 FL (80-99) Mean Corpuscular Hemoglobin 30.1 PG (27.0-31.0) Mean Corpuscular Hemoglobin Concent 32.8 G/DL (32.0-36.0) Red Cell Distribution Width 14.8 % (11.6-14.8) Platelet Count 286 K/UL (150-450) Mean Platelet Volume 7.4 FL (6.5-10.1) Neutrophils (%) (Auto) % (45.0-75.0) Lymphocytes (%) (Auto) % (20.0-45.0) Monocytes (%) (Auto) % (1.0-10.0) Eosinophils (%) (Auto) % (0.0-3.0) Basophils (%) (Auto) % (0.0-2.0) Sodium Level 138 MMOL/L (136-145) Potassium Level 4.1 MMOL/L (3.5-5.1) Chloride Level 104 MMOL/L (98-107) Carbon Dioxide Level 23 MMOL/L (21-32) Anion Gap 11 mmol/L (5-15) Blood Urea Nitrogen 32 mg/dL (7-18) H Creatinine 1.7 MG/DL (0.55-1.30) H Estimat Glomerular Filtration Rate mL/min (>60) Glucose Level 133 MG/DL (74-106) H Hemoglobin A1c 5.7 % (4.3-6.0) Uric Acid 11.1 MG/DL (2.6-7.2) H Calcium Level 8.5 MG/DL (8.5-10.1) Phosphorus Level 4.0 MG/DL (2.5-4.9) Magnesium Level 1.7 MG/DL (1.8-2.4) L Total Bilirubin 1.2 MG/DL (0.2-1.0) H Direct Bilirubin 0.4 MG/DL (0.0-0.3) H Gamma Glutamyl Transpeptidase 54 U/L (5-85) Aspartate Amino Transf (AST/SGOT) 69 U/L (15-37) H Alanine Aminotransferase (ALT/SGPT) 121 U/L (12-78) H Alkaline Phosphatase 79 U/L (46-116) Total Creatine Kinase 40 U/L (26-308) Troponin I 1.028 ng/mL (0.000-0.056) C-Reactive Protein, Quantitative Pending Pro-B-Type Natriuretic Peptide Pending Total Protein 6.8 G/DL (6.4-8.2) Albumin 2.2 G/DL (3.4-5.0) L Globulin 4.6 g/dL Albumin/Globulin Ratio 0.5 (1.0-2.7) L Triglycerides Level 87 MG/DL (30-150) Cholesterol Level 133 MG/DL (< 200) LDL Cholesterol 80 mg/dL (<100) HDL Cholesterol 30 MG/DL (40-60) L Cholesterol/HDL Ratio 4.4 (3.3-4.4) Vitamin B12 Level 1427 PG/ML (193-986) H Folate Pending Thyroid Stimulating Hormone (TSH) 1.174 uiU/mL (0.358-3.740) Rasheed Shaikh MD Nov 14, 2019 07:40
--- NOTE | 2019-11-14 07:45 | NUR ---
HAND-OFF: Report given to MAEGAN Yates. pt is in stable condition.
--- NOTE | 2019-11-14 07:46 | NUR ---
NURSE NOTES: Received patient in bed. Asleep, easy to arouse. Verbal. In no apparent distress. On nasal cannula at 2LPM. Bed in lowest position, bed alarm on. Call light within reach. Will continue plan of care.
[2019-11-14 08:00] VITALS: BP 126/76
[2019-11-14] MEDS: Docusate 100mg cap ORAL SCH ×3 (09:19→18:26)
[2019-11-14] MEDS: Aspirin Baby 81mg ORAL SCH (09:19)
--- NOTE | 2019-11-14 10:51 | Nephrology Progress Note ---
Assessment/Plan Problem List: (1) Renal failure (ARF), acute on chronic (2) NSTEMI (non-ST elevated myocardial infarction) (3) UTI (urinary tract infection) (4) Ovarian cancer Assessment: by history Assessment Renal failure : Acute vs Chronic, associate: HyperKalemia UTI / Proteinuria / Leukocytosis Elevated Troponin and LFTs elevated troponin History of ovarian CA. Plan Adjust BP meds- PRN BP meds Urine studies Per orders DC lasix: CXR neg 2D echo pending ISSA kidney pending Slow Hydrate Subjective ROS Limited/Unobtainable: No Constitutional: Reports: malaise, weakness Objective Objective Last 24 Hour Vital Signs Date Time Temp Pulse Resp B/P (MAP) Pulse Ox O2 Delivery O2 Flow Rate FiO2 11/14/19 09:29 97 Nasal Cannula 2.0 28 11/14/19 09:19 84 126/76 11/14/19 08:00 Nasal Cannula 2.0 11/14/19 08:00 84 11/14/19 08:00 2.0 11/14/19 08:00 98.7 80 20 126/76 (93) 97 11/14/19 04:00 82 11/14/19 04:00 Nasal Cannula 2.0 11/14/19 04:00 2.0 11/14/19 04:00 97.7 74 26 116/72 (87) 98 11/14/19 00:00 2.0 11/14/19 00:00 Nasal Cannula 2.0 11/14/19 00:00 84 11/14/19 00:00 98.8 80 28 129/73 (91) 97 11/13/19 21:24 133/81 11/13/19 21:24 97 133/81 11/13/19 20:00 98.1 97 28 133/81 (98) 97 11/13/19 20:00 Bi-pap 11/13/19 20:00 2.0 11/13/19 20:00 98 11/13/19 19:07 98 Nasal Cannula 2.0 28 11/13/19 16:00 95 11/13/19 16:00 2.0 11/13/19 16:00 Bi-pap 11/13/19 15:55 89 137/90 11/13/19 12:00 86 11/13/19 12:00 99.4 89 24 137/90 (106) 11/13/19 12:00 Bi-pap 11/13/19 12:00 2.0 11/13/19 12:00 Bi-pap 11/13/19 11:30 98 Nasal Cannula 2.0 Intake and Output 11/13/19 11/14/19 19:00 07:00 Intake Total 700 ml 765 ml Output Total 600 ml 100 ml Balance 100 ml 665 ml Intake Oral 700 ml 240 ml IV Total 525 ml Output Urine Total 600 ml 100 ml # Voids 2 2 # Bowel Movements 6 1 Laboratory Tests 11/13/19 10:55: Arterial Blood pH 7.497H, Arterial Blood Partial Pressure CO2 23.6*L, Arterial Blood Partial Pressure O2 72.6L, Arterial Blood HCO3 17.9*L, Arterial Blood Oxygen Saturation 94.2L, Arterial Blood Base Excess -3.6L, Tony Test Positive 11/13/19 16:40: Carcinoembryonic Antigen 1.3, CA 19-9 Antigen 16 11/14/19 03:40: White Blood Count 14.3H, Corrected White Blood Count , Red Blood Count 4.09L, Hemoglobin 12.3, Hematocrit 37.5, Mean Corpuscular Volume 92, Mean Corpuscular Hemoglobin 30.1, Mean Corpuscular Hemoglobin Concent 32.8, Red Cell Distribution Width 14.8, Platelet Count 286, Mean Platelet Volume 7.4, Neutrophils (%) (Auto) , Lymphocytes (%) (Auto) , Monocytes (%) (Auto) , Eosinophils (%) (Auto) , Basophils (%) (Auto) , Sodium Level 138, Potassium Level 4.1, Chloride Level 104, Carbon Dioxide Level 23, Anion Gap 11, Blood Urea Nitrogen 32H, Creatinine 1.7H, Estimat Glomerular Filtration Rate , Glucose Level 133H, Hemoglobin A1c 5.7, Uric Acid 11.1H, Calcium Level 8.5, Phosphorus Level 4.0, Magnesium Level 1.7L, Total Bilirubin 1.2H, Direct Bilirubin 0.4H, Gamma Glutamyl Transpeptidase 54, Aspartate Amino Transf (AST/ SGOT) 69H, Alanine Aminotransferase (ALT/SGPT) 121H, Alkaline Phosphatase 79, Total Creatine Kinase 40, Troponin I 1.028H, C-Reactive Protein, Quantitative [ Pending], Pro-B-Type Natriuretic Peptide [Pending], Total Protein 6.8, Albumin 2.2L, Globulin 4.6, Albumin/Globulin Ratio 0.5L, Triglycerides Level 87, Cholesterol Level 133, LDL Cholesterol 80, HDL Cholesterol 30L, Cholesterol/HDL Ratio 4.4, Vitamin B12 Level 1427H, Folate [Pending], Thyroid Stimulating Hormone (TSH) 1.174 Height (Feet): 5 Height (Inches): 6.00 Weight (Pounds): 165 General Appearance: no apparent distress, lethargic Cardiovascular: normal rate Respiratory/Chest: decreased breath sounds Abdomen: distended Nazario Vora MD Nov 14, 2019 10:51
[2019-11-14 12:00] VITALS: BP 109/60
--- NOTE | 2019-11-14 12:29 | NUR ---
*-* INSURANCE *-* CLINICALS HAVE BEEN FAXED TO: [employer] P: [phone] F: [phone] REF# [id number]
--- NOTE | 2019-11-14 12:33 | Diagnostic Imaging Report ---
Indication: Acute renal failure Technique: Grayscale and duplex images of the kidneys, retroperitoneum, and bladder were obtained. Comparison: none Findings: Right kidney measures 12.3 cm in length. Left kidney measures 11.1 cm in length. Both kidneys demonstrate normal echogenicity. No hydronephrosis. Multiple cysts are seen in the right kidney. Superior to the bladder, there is a septated cystic mass. Normal inferior vena cava. Bladder is normal. Impression: Negative for hydronephrosis Septated cystic pelvic mass. Per referring physician, patient has history of ovarian carcinoma Incidental finding right renal cyst.
--- NOTE | 2019-11-14 13:23 | NUR ---
NURSE NOTES: Informed Dr. Shaikh regarding latest troponin level of 1.263. No new orders at this time.
--- NOTE | 2019-11-14 14:16 | Consultation ---
History of Present Illness General Chief Complaint: Dyspnea/Respdistress Present Illness Allergies: Coded Allergies: No Known Allergies (Unverified , 11/13/19) Medication History Scheduled Amlodipine Besylate* (Amlodipine Besylate*), 10 MG ORAL DAILY, (Reported) Atorvastatin (Lipitor), 80 MG ORAL BEDTIME, (Reported) Duloxetine HCl (Duloxetine HCl), 30 MG PO TWICE A DAY, (Reported) Folic Acid* (Folic Acid*), 1 MG ORAL DAILY, (Reported) Furosemide (Furosemide), 40 MG ORAL DAILY, (Reported) Gabapentin (Gabapentin), 300 MG ORAL TWICE A DAY, (Reported) Hydroxychloroquine Sulfate (Hydroxychloroquine Sulfate), 200 MG PO DAILY, ( Reported) Metoprolol Tartrate* (Metoprolol Tartrate*), 25 MG ORAL EVERY 12 HOURS, ( Reported) Omeprazole (Omeprazole), 20 MG ORAL DAILY, (Reported) Scheduled PRN Hydrocodone Bit/Acetaminophen 5-325* ([place] 5-325*), 1 TAB ORAL BID PRN for For Pain, (Reported) Miscellaneous Medications Methotrexate Sodium* (Methotrexate*), 25 MG PO, (Reported) Patient History Healthcare decision maker Kendy Mcfadden Resuscitation status Full Code Advanced Directive on File No Physical Exam Last 24 Hour Vital Signs Date Time Temp Pulse Resp B/P (MAP) Pulse Ox O2 Delivery O2 Flow Rate FiO2 11/14/19 12:00 2.0 11/14/19 12:00 98.5 74 18 109/60 (76) 97 11/14/19 12:00 Nasal Cannula 2.0 11/14/19 11:25 75 11/14/19 09:29 97 Nasal Cannula 2.0 28 11/14/19 09:19 84 126/76 11/14/19 08:00 Nasal Cannula 2.0 11/14/19 08:00 84 11/14/19 08:00 2.0 11/14/19 08:00 98.7 80 20 126/76 (93) 97 11/14/19 04:00 82 11/14/19 04:00 Nasal Cannula 2.0 11/14/19 04:00 2.0 11/14/19 04:00 97.7 74 26 116/72 (87) 98 11/14/19 00:00 2.0 11/14/19 00:00 Nasal Cannula 2.0 11/14/19 00:00 84 11/14/19 00:00 98.8 80 28 129/73 (91) 97 11/13/19 21:24 133/81 11/13/19 21:24 97 133/81 11/13/19 20:00 98.1 97 28 133/81 (98) 97 11/13/19 20:00 Bi-pap 11/13/19 20:00 2.0 11/13/19 20:00 98 11/13/19 19:07 98 Nasal Cannula 2.0 28 11/13/19 16:00 95 11/13/19 16:00 2.0 11/13/19 16:00 Bi-pap 11/13/19 15:55 89 137/90 Intake and Output 11/13/19 11/14/19 19:00 07:00 Intake Total 700 ml 765 ml Output Total 600 ml 100 ml Balance 100 ml 665 ml Intake Oral 700 ml 240 ml IV Total 525 ml Output Urine Total 600 ml 100 ml # Voids 2 2 # Bowel Movements 6 1 Laboratory Tests Test 11/13/19 16:40 11/14/19 03:40 11/14/19 11:55 Carcinoembryonic Antigen 1.3 ng/mL (0.0-4.7) CA 19-9 Antigen 16 U/mL (0-35) White Blood Count 14.3 K/UL (4.8-10.8) H Corrected White Blood Count K/UL Red Blood Count 4.09 M/UL (4.20-5.40) L Hemoglobin 12.3 G/DL (12.0-16.0) Hematocrit 37.5 % (37.0-47.0) Mean Corpuscular Volume 92 FL (80-99) Mean Corpuscular Hemoglobin 30.1 PG (27.0-31.0) Mean Corpuscular Hemoglobin Concent 32.8 G/DL (32.0-36.0) Red Cell Distribution Width 14.8 % (11.6-14.8) Platelet Count 286 K/UL (150-450) Mean Platelet Volume 7.4 FL (6.5-10.1) Neutrophils (%) (Auto) % (45.0-75.0) Lymphocytes (%) (Auto) % (20.0-45.0) Monocytes (%) (Auto) % (1.0-10.0) Eosinophils (%) (Auto) % (0.0-3.0) Basophils (%) (Auto) % (0.0-2.0) Sodium Level 138 MMOL/L (136-145) Potassium Level 4.1 MMOL/L (3.5-5.1) Chloride Level 104 MMOL/L (98-107) Carbon Dioxide Level 23 MMOL/L (21-32) Anion Gap 11 mmol/L (5-15) Blood Urea Nitrogen 32 mg/dL (7-18) H Creatinine 1.7 MG/DL (0.55-1.30) H Estimat Glomerular Filtration Rate mL/min (>60) Glucose Level 133 MG/DL (74-106) H Hemoglobin A1c 5.7 % (4.3-6.0) Uric Acid 11.1 MG/DL (2.6-7.2) H Calcium Level 8.5 MG/DL (8.5-10.1) Phosphorus Level 4.0 MG/DL (2.5-4.9) Magnesium Level 1.7 MG/DL (1.8-2.4) L Total Bilirubin 1.2 MG/DL (0.2-1.0) H Direct Bilirubin 0.4 MG/DL (0.0-0.3) H Gamma Glutamyl Transpeptidase 54 U/L (5-85) Aspartate Amino Transf (AST/SGOT) 69 U/L (15-37) H Alanine Aminotransferase (ALT/SGPT) 121 U/L (12-78) H Alkaline Phosphatase 79 U/L (46-116) Total Creatine Kinase 40 U/L (26-308) Troponin I 1.028 ng/mL (0.000-0.056) 1.263 ng/mL (0.000-0.056) C-Reactive Protein, Quantitative Pending Pro-B-Type Natriuretic Peptide Pending Total Protein 6.8 G/DL (6.4-8.2) Albumin 2.2 G/DL (3.4-5.0) L Globulin 4.6 g/dL Albumin/Globulin Ratio 0.5 (1.0-2.7) L Triglycerides Level 87 MG/DL (30-150) Cholesterol Level 133 MG/DL (< 200) LDL Cholesterol 80 mg/dL (<100) HDL Cholesterol 30 MG/DL (40-60) L Cholesterol/HDL Ratio 4.4 (3.3-4.4) Vitamin B12 Level 1427 PG/ML (193-986) H Folate Pending Thyroid Stimulating Hormone (TSH) 1.174 uiU/mL (0.358-3.740) Height (Feet): 5 Height (Inches): 6.00 Weight (Pounds): 165 Medications Current Medications Medications (Trade) Dose Ordered Sig/Ronn Route PRN Reason Start Time Stop Time Status Last Admin Dose Admin Aspirin (ASA) 81 mg DAILY ORAL 11/14/19 09:00 12/14/19 08:59 11/14/19 09:19 Atorvastatin Calcium (Lipitor) 80 mg BEDTIME ORAL 11/14/19 21:00 12/14/19 20:59 Dextrose/Sodium Chloride 1,000 ml @ 50 mls/hr Q20H IV 11/13/19 20:00 12/13/19 19:59 11/13/19 20:31 Docusate Sodium (Colace) 100 mg TWICE A DAY ORAL 11/14/19 09:00 12/14/19 08:59 11/14/19 09:19 Folic Acid (Folate) 1 mg DAILY ORAL 11/14/19 09:00 12/14/19 08:59 11/14/19 09:19 Gabapentin (Neurontin) 300 mg BID ORAL 11/13/19 15:00 12/13/19 14:59 11/14/19 09:19 Hydralazine HCl (Apresoline) 25 mg Q4H PRN ORAL bp over 160 syst 11/13/19 18:53 12/13/19 18:52 Hydroxychloroquine Sulfate (Plaquenil) 200 mg TWICE A DAY ORAL 11/13/19 18:00 12/13/19 17:59 11/14/19 09:19 Isosorbide Dinitrate (Isordil) 10 mg Q6HR ORAL 11/14/19 12:00 12/14/19 11:59 Metoprolol Tartrate (Lopressor) 25 mg Q12HR ORAL 11/13/19 21:00 12/13/19 20:59 11/14/19 09:19 Nitroglycerin (Ntg) 1 patch Q24H TDERMAL 11/13/19 21:00 12/13/19 20:59 11/13/19 21:24 Pantoprazole (Protonix) 40 mg Q12HR ORAL 11/13/19 21:00 12/13/19 14:44 11/14/19 09:19 Assessment/Plan Assessment/Plan: Hematology Oncology Consultation REQ : Nikunj Jones RFC: Ovarian ca DOS: 11/14/2019 HISTORY OF PRESENT ILLNESS: 74y old female p/w sob She seems to have shortness of breath for approximately 3 weeks and finally when she walked outside her house, she was unable to do it any more. She has 2 pillow usage. There is no PND. She has dyspnea on exertion. She has a sensation of a band around her chest that has been present for the past few years. She is unable to lie down on the left side because of that. She really does not have any exertional related chest pain as I understand it, but just a purely shortness of breath. She has occasional palpitations. No dizziness or lightheadedness when she stands up. She has had some fevers in the past few days. She has had minimal coughing, but no wheezing. PAST MEDICAL HISTORY: Positive for history of hospitalization previously in 2017 for shortness of breath, felt to be secondary to bronchitis and sinusitis. She has a history of cardiomyopathy, ejection fraction 35%, history of hypertension, hyperlipidemia, chronic kidney disease stage 2, and degenerative joint disease. Her last stress test in 2017 did not show any ischemia, but she did have ejection fraction of 35%. She is followed by Dr. Escalante and Dr. Ly. Also, pulmonary hypertension. Chart indicates she has a history of coronary disease with angioplasties performed by [facility] by Dr. Castillo. SURGERIES: Lower back lumbar usrgery 08/16/19, partial hysterectomy, knee surgery, stents, angioplasty MEDICATIONS: The patient's medications at home include Plaquenil, she takes folic acid, methotrexate 25 mg 6 times a week, Cymbalta 30 mg twice a day, omeprazole 20 mg daily, Norvasc 10 mg daily, metoprolol 25 mg daily, Lasix 40 mg daily, potassium chloride 20 mEq a day, Lipitor 80 mg daily, gabapentin 300 mg 2 times daily, and hydrocodone as well. ALLERGIES: She has no known drug allergies. FAMILY HISTORY: Mom and dad hx of stroke and heart attack and both SOCIAL HISTORY: . She denies any smoking, tobacco, or drug use. She lives at home. 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 No Tobacco, alcohol, or drugs ROS General: Denies fatigue, fever, chills, weight loss; + weight gain as above HENT: Denies oral sores, neck masses, nasal d/c, hearing problems Vison: Denies change in vision, eye pain, redness, discharge Cardiac: As above Pulmonary: ++ sob noted GI: Denies heart burn, swallowing difficulty, abdominal pain, diarrhea, constipation : As per HPI Neuro: Denies seizure, weakness, numbness Endo: Denies heat/cold intolerance, weight changes, polyuria, polydipsia Heme/Onc: Denies unusual bleeding, bruising, clotting MSK: Denies join pain, swelling, muscle aches PHYSICAL EXAMINATION: GENERAL: Shows to be an elderly female, in no respiratory distress. HEENT: Unremarkable. NECK: Supple. No jugular venous distention. LUNGS: Crackles noted on the right base. CARDIAC: Regular rate and rhythm. No heaves, thrills, or gallops noted. ABDOMEN: Soft and nontender. Positive bowel sounds. EXTREMITIES: There is no edema. NEUROLOGIC: She is awake and responsive. LABORATORY AND DIAGNOSTIC DATA: white count of 19.2, hemoglobin 14.1, and platelet count 309,000. Blood gases, she has had multiple today with the latest showing a pH of 7.497, pCO2 of 24, pO2 of 73, and bicarbonate of 17. Her last sodium is 136, potassium 5.2, chloride 98, bicarbonate of 34, creatinine 2.0, and glucose is 98. Liver function tests, AST is elevated at 175, ALT of 205, and alkaline phosphatase is 105. Troponin is 0.755 and 0.709. ProBNP of 29,000. Total protein 9.7, albumin of 3.7, and gamma globulins at 6.0. Urine barbiturates are positive. Urinalysis shows 2 to 4 rbc's, 2 to 4 wbc's, 2+ leukocyte esterase. A chest x-ray performed shows no definite infiltrates or vascular congestion. The heart is enlarged. Aorta is mildly enlarged consistent with atherosclerotic vascular disease. No definite acute infiltrate was noted. She had her telemetry that shows sinus rhythm. EKG is normal sinus rhythm as well with nonspecific T-wave changes with premature ventricular complexes noted. ASSESSMENT: # Newly diagnosed Ovarian cancer -- supposed to see Dr. Maier, has been diagnosed at [facility], size of tumor "FOOTBALL Sized" --> staging at this time unknown --> needs surgical staging in the near future --> CA125 pending # Shortness of breath, secondary to congestive heart failure, rule out an additional infectious cause. --> as per digital marketing lead --> breathing treatments and diuresis as needed --> may need cath # Renal insufficiency. --> on ivf as needed # Troponin, Abnormal cardiac enzymes. --> trend as needed, cath as needed # History of coronary artery disease with apparently prior documented angioplasties. # Systemic hypertension. # Hyperlipidemia. # Degenerative joint disease. The timing of this note does not necessarily reflect the time of the patient was seen. Greatly appreciate consultation. Elder Paredes MD Nov 14, 2019 14:15
[2019-11-14 16:00] VITALS: BP 122/84
[2019-11-14] MEDS: D5NS 1,000 ML IV SCH (17:53)
--- NOTE | 2019-11-14 18:20 | NUR ---
NURSE NOTES: Dr. Shaikh in the unit.
[2019-11-14] MEDS ORDERED: Albuterol ud Inhalation HHN PRN (19:00)
[2019-11-14] MEDS ORDERED: Albuterol ud Inhalation HHN SCH (19:00)
--- NOTE | 2019-11-14 19:15 | NUR ---
HAND-OFF: Report given to Brady Tidwell RN.
--- NOTE | 2019-11-14 19:16 | NUR ---
NURSE NOTES: Received patient from MAEGAN Yates . Patient is aaox3, vss, with no acute distress. Patient is cooperative and well groomed. Patient is on top cutter with IV site on right forearm 20 g running D5NS at 50mL/hr. Patient is on 2L NC and saturating at 98%. No skin issue to note. Bed at its lowest position, call light in reach and x3 bed rails are up.
[2019-11-14 20:00] VITALS: BP 104/73
[2019-11-14] MEDS: Nitroglycerin Patch 0.4mg TDERMAL SCH (21:28)
[2019-11-14] MEDS: Atorvastatin 80mg tab ORAL SCH (21:28)
[2019-11-15] VITALS: BP 132/61
[2019-11-15 04:00] VITALS: BP 114/76
--- NOTE | 2019-11-15 05:35 | NUR ---
NURSE NOTES: Gave critical lab results for Troponin to Melly Lang calling from lab- aware to f/u.
[2019-11-15 05:39] LABS: ALANINE AMINOTRANSFERASE 82 U/L (12-78); ALBUMIN 1.9 G/DL (3.4-5.0); ALBUMIN/GLOBULIN RATIO 0.4 (1.0-2.7); ALKALINE PHOSPHATASE 73 U/L (46-116); ANION GAP 11 mmol/L (5-15); ASPARTATE AMINO TRANSFERASE 35 U/L (15-37); BILIRUBIN,TOTAL 0.9 MG/DL (0.2-1.0); BLOOD UREA NITROGEN 36 mg/dL (7-18); CALCIUM 8.2 MG/DL (8.5-10.1); CARBON DIOXIDE 21 MMOL/L (21-32); CHLORIDE 106 MMOL/L (98-107); CREATININE 1.8 MG/DL (0.55-1.30); SODIUM 138 MMOL/L (136-145)
[2019-11-15 05:42] LABS: PHOSPHORUS 4.3 MG/DL (2.5-4.9)
--- NOTE | 2019-11-15 06:15 | Hematology/Onc Progress Note ---
Assessment/Plan Assessment/Plan ASSESSMENT: # Newly diagnosed Ovarian cancer -- supposed to see Dr. Maier, has been diagnosed at [facility], size of tumor "FOOTBALL Sized" --> staging at this time unknown --> needs surgical staging in the near future --> [id number] pending # Shortness of breath, secondary to congestive heart failure, rule out an additional infectious cause. --> as per sign manufacturer --> breathing treatments and diuresis as needed --> may need cath # Renal insufficiency. --> on ivf as needed # Troponin, Abnormal cardiac enzymes. --> trend as needed, cath as needed # History of coronary artery disease with apparently prior documented angioplasties. # Systemic hypertension. # Hyperlipidemia. # Degenerative joint disease. The timing of this note does not necessarily reflect the time of the patient was seen. Greatly appreciate consultation. Subjective Constitutional: Denies: no symptoms, chills, fever, malaise, weakness, other HEENT: Denies: no symptoms, eye pain, blurred vision, tearing, double vision, ear pain, ear discharge, nose pain, nose congestion, throat pain, throat swelling, mouth pain, mouth swelling, other Cardiovascular: Denies: no symptoms, chest pain, edema, irregular heart rate, lightheadedness, palpitations, syncope, other Respiratory: Denies: no symptoms, cough, shortness of breath, SOB with excertion, SOB at rest, sputum, wheezing, other Gastrointestinal/Abdominal: Denies: no symptoms, abdomen distended, abdominal pain, black stools, tarry stools, blood in stool, constipated, diarrhea, difficulty swallowing, nausea, poor appetite, poor fluid intake, rectal bleeding , vomiting, other Genitourinary: Denies: no symptoms, burning, discharge, frequency, flank pain, hematuria, incontinence, pain, urgency, other Neurologic/Psychiatric: Denies: no symptoms, anxiety, depressed, emotional problems, headache, numbness, paresthesia, pre-existing deficit, seizure, tingling, tremors, weakness, other Endocrine: Denies: no symptoms, excessive sweating, flushing, intolerance to cold, intolerance to heat, increased hunger, increased thirst, increased urine, unexplained weight gain, unexplained weight loss, other Hematologic/Lymphatic: Denies: no symptoms, anemia, easy bleeding, easy bruising, adenopathy, other Allergies: Coded Allergies: No Known Allergies (Unverified , 11/13/19) Subjective 11/15: remains on nc, no major changes overnight, dw daughter who I have seen before, no bleeding Objective Objective Current Medications Medications (Trade) Dose Ordered Sig/Ronn Route PRN Reason Start Time Stop Time Status Last Admin Dose Admin Albuterol Sulfate (Proventil) 2.5 mg Q4H PRN HHN Shortness of Breath 11/14/19 19:00 11/19/19 18:59 11/14/19 19:24 Aspirin (ASA) 81 mg DAILY ORAL 11/14/19 09:00 12/14/19 08:59 11/14/19 09:19 Atorvastatin Calcium (Lipitor) 80 mg BEDTIME ORAL 11/14/19 21:00 12/14/19 20:59 11/14/19 21:28 Dextrose/Sodium Chloride 1,000 ml @ 50 mls/hr Q20H IV 11/13/19 20:00 12/13/19 19:59 11/14/19 17:53 Docusate Sodium (Colace) 100 mg TWICE A DAY ORAL 11/14/19 09:00 12/14/19 08:59 11/14/19 09:19 Folic Acid (Folate) 1 mg DAILY ORAL 11/14/19 09:00 12/14/19 08:59 11/14/19 09:19 Gabapentin (Neurontin) 300 mg BID ORAL 11/13/19 15:00 12/13/19 14:59 11/14/19 18:26 Hydralazine HCl (Apresoline) 25 mg Q4H PRN ORAL bp over 160 syst 11/13/19 18:53 12/13/19 18:52 Hydroxychloroquine Sulfate (Plaquenil) 200 mg TWICE A DAY ORAL 11/13/19 18:00 12/13/19 17:59 11/14/19 18:26 Isosorbide Dinitrate (Isordil) 10 mg Q6HR ORAL 11/14/19 12:00 12/14/19 11:59 11/15/19 00:50 Metoprolol Tartrate (Lopressor) 25 mg Q12HR ORAL 11/13/19 21:00 12/13/19 20:59 11/14/19 09:19 Nitroglycerin (Ntg) 1 patch Q24H TDERMAL 11/13/19 21:00 12/13/19 20:59 11/14/19 21:28 Pantoprazole (Protonix) 40 mg Q12HR ORAL 11/13/19 21:00 12/13/19 14:44 11/14/19 21:28 Last 24 Hour Vital Signs Date Time Temp Pulse Resp B/P (MAP) Pulse Ox O2 Delivery O2 Flow Rate FiO2 11/15/19 00:50 132/61 11/15/19 00:00 97.9 80 24 132/61 (84) 98 11/15/19 00:00 78 11/15/19 00:00 2.0 11/15/19 00:00 Nasal Cannula 2.0 11/14/19 21:28 104/73 11/14/19 21:00 79 104/73 11/14/19 20:00 Nasal Cannula 2.0 11/14/19 20:00 82 11/14/19 20:00 98.0 79 24 104/73 (83) 99 11/14/19 20:00 2.0 11/14/19 19:26 73 18 100 Nasal Cannula 2.0 28 69 18 99 11/14/19 19:25 99 Nasal Cannula 2.0 28 11/14/19 18:26 122/84 11/14/19 17:23 Nasal Cannula 2.0 11/14/19 16:00 2.0 11/14/19 16:00 Nasal Cannula 2.0 11/14/19 16:00 98.7 79 20 122/84 (97) 94 11/14/19 15:57 77 11/14/19 12:00 2.0 11/14/19 12:00 98.5 74 18 109/60 (76) 97 11/14/19 12:00 Nasal Cannula 2.0 11/14/19 11:25 75 11/14/19 09:29 97 Nasal Cannula 2.0 28 11/14/19 09:19 84 126/76 11/14/19 08:00 Nasal Cannula 2.0 11/14/19 08:00 84 11/14/19 08:00 2.0 11/14/19 08:00 98.7 80 20 126/76 (93) 97 11/14/19 04:00 82 11/14/19 04:00 Nasal Cannula 2.0 11/14/19 04:00 2.0 11/14/19 04:00 97.7 74 26 116/72 (87) 98 11/14/19 00:00 2.0 11/14/19 00:00 Nasal Cannula 2.0 11/14/19 00:00 84 11/14/19 00:00 98.8 80 28 129/73 (91) 97 11/13/19 21:24 133/81 11/13/19 21:24 97 133/81 11/13/19 20:00 98.1 97 28 133/81 (98) 97 11/13/19 20:00 Bi-pap 11/13/19 20:00 2.0 11/13/19 20:00 98 11/13/19 19:07 98 Nasal Cannula 2.0 28 11/13/19 16:00 95 11/13/19 16:00 2.0 11/13/19 16:00 Bi-pap 11/13/19 15:55 89 137/90 11/13/19 12:00 86 11/13/19 12:00 99.4 89 24 137/90 (106) 11/13/19 12:00 Bi-pap 11/13/19 12:00 2.0 11/13/19 12:00 Bi-pap 11/13/19 11:30 98 Nasal Cannula 2.0 11/13/19 09:48 Bi-pap 11/13/19 08:47 78 36 100 Bi-Pap 40 11/13/19 08:00 78 11/13/19 08:00 Bi-pap 11/13/19 08:00 99.3 79 30 134/91 (105) 100 11/13/19 07:45 Bi-pap 11/13/19 07:24 78 36 100 Facial 40 11/13/19 06:33 82 Intake and Output 11/14/19 11/15/19 19:00 07:00 Intake Total 1060.833 ml Balance 1060.833 ml Intake Oral 360 ml IV Total 700.833 ml # Voids 2 Labs Test 11/13/19 00:40 11/13/19 00:44 11/13/19 03:49 11/13/19 04:01 Arterial Blood pH 7.512 (7.350-7.450) 7.463 (7.350-7.450) Arterial Blood Partial Pressure CO2 24.8 mmHg (35.0-45.0) 28.4 mmHg (35.0-45.0) Arterial Blood Partial Pressure O2 63.4 mmHg (75.0-100.0) 134.2 mmHg (75.0-100.0) Arterial Blood HCO3 19.4 mmol/L (22.0-26.0) 19.9 mmol/L (22.0-26.0) Arterial Blood Oxygen Saturation 90.6 % (95-100) 98.5 % (95-100) Arterial Blood Base Excess -2.0 (-2-2) -2.7 (-2-2) Tony Test Positive Positive White Blood Count 19.2 K/UL (4.8-10.8) Red Blood Count 4.74 M/UL (4.20-5.40) Hemoglobin 14.1 G/DL (12.0-16.0) Hematocrit 43.8 % (37.0-47.0) Mean Corpuscular Volume 92 FL (80-99) Mean Corpuscular Hemoglobin 29.8 PG (27.0-31.0) Mean Corpuscular Hemoglobin Concent 32.2 G/DL (32.0-36.0) Red Cell Distribution Width 14.5 % (11.6-14.8) Platelet Count 309 K/UL (150-450) Mean Platelet Volume 7.1 FL (6.5-10.1) Neutrophils (%) (Auto) % (45.0-75.0) Lymphocytes (%) (Auto) % (20.0-45.0) Monocytes (%) (Auto) % (1.0-10.0) Eosinophils (%) (Auto) % (0.0-3.0) Basophils (%) (Auto) % (0.0-2.0) Differential Total Cells Counted 100 Neutrophils % (Manual) 79 % (45-75) Lymphocytes % (Manual) 15 % (20-45) Monocytes % (Manual) 6 % (1-10) Eosinophils % (Manual) 0 % (0-3) Basophils % (Manual) 0 % (0-2) Band Neutrophils 0 % (0-8) Platelet Estimate Adequate Platelet Morphology Normal Sodium Level 136 MMOL/L (136-145) Potassium Level 5.2 MMOL/L (3.5-5.1) Chloride Level 98 MMOL/L (98-107) Carbon Dioxide Level 22 MMOL/L (21-32) Anion Gap 16 mmol/L (5-15) Blood Urea Nitrogen 34 mg/dL (7-18) Creatinine 2.0 MG/DL (0.55-1.30) Estimat Glomerular Filtration Rate mL/min (>60) Glucose Level 98 MG/DL (74-106) Calcium Level 10.1 MG/DL (8.5-10.1) Total Bilirubin 1.6 MG/DL (0.2-1.0) Direct Bilirubin 0.2 MG/DL (0.0-0.3) Aspartate Amino Transf (AST/SGOT) 175 U/L (15-37) Alanine Aminotransferase (ALT/SGPT) 205 U/L (12-78) Alkaline Phosphatase 106 U/L (46-116) Troponin I 0.755 ng/mL (0.000-0.056) 0.709 ng/mL (0.000-0.056) Pro-B-Type Natriuretic Peptide 14332 pg/mL (0-125) Total Protein 9.7 G/DL (6.4-8.2) Albumin 3.7 G/DL (3.4-5.0) Globulin 6.0 g/dL Albumin/Globulin Ratio 0.6 (1.0-2.7) Test 11/13/19 07:08 11/13/19 10:00 11/13/19 10:55 11/13/19 16:40 Arterial Blood pH 7.436 (7.350-7.450) 7.497 (7.350-7.450) Arterial Blood Partial Pressure CO2 28.6 mmHg (35.0-45.0) 23.6 mmHg (35.0-45.0) Arterial Blood Partial Pressure O2 101.8 mmHg (75.0-100.0) 72.6 mmHg (75.0-100.0) Arterial Blood HCO3 18.8 mmol/L (22.0-26.0) 17.9 mmol/L (22.0-26.0) Arterial Blood Oxygen Saturation 97.4 % (95-100) 94.2 % (95-100) Arterial Blood Base Excess -4.2 (-2-2) -3.6 (-2-2) Tony Test Positive Positive Urine Color Yellow Urine Appearance Clear Urine pH 5 (4.5-8.0) Urine Specific [place] 1.025 (1.005-1.035) Urine Protein 3+ (NEGATIVE) Urine Glucose (UA) Negative (NEGATIVE) Urine Ketones 1+ (NEGATIVE) Urine Blood 1+ (NEGATIVE) Urine Nitrite Negative (NEGATIVE) Urine Bilirubin Negative (NEGATIVE) Urine Urobilinogen Normal MG/DL (0.0-1.0) Urine Leukocyte Esterase 2+ (NEGATIVE) Urine RBC 2-4 /HPF (0 - 2) Urine WBC 2-4 /HPF (0 - 2) Urine Squamous Epithelial Cells Moderate /LPF (NONE/OCC) Urine Bacteria Few /HPF (NONE) Urine Fine Granular Casts 0-2 /LPF (NONE) Urine Opiates Screen Negative (NEGATIVE) Urine Barbiturates Screen Positive (NEGATIVE) Phencyclidine (PCP) Screen Negative (NEGATIVE) Urine Amphetamines Screen Negative (NEGATIVE) Urine Benzodiazepines Screen Negative (NEGATIVE) Urine Cocaine Screen Negative (NEGATIVE) Urine Marijuana (THC) Screen Negative (NEGATIVE) Carcinoembryonic Antigen 1.3 ng/mL (0.0-4.7) CA 19-9 Antigen 16 U/mL (0-35) Test 11/14/19 03:40 11/14/19 11:55 11/14/19 20:20 11/15/19 03:40 White Blood Count 14.3 K/UL (4.8-10.8) Corrected White Blood Count K/UL Red Blood Count 4.09 M/UL (4.20-5.40) Hemoglobin 12.3 G/DL (12.0-16.0) Hematocrit 37.5 % (37.0-47.0) Mean Corpuscular Volume 92 FL (80-99) Mean Corpuscular Hemoglobin 30.1 PG (27.0-31.0) Mean Corpuscular Hemoglobin Concent 32.8 G/DL (32.0-36.0) Red Cell Distribution Width 14.8 % (11.6-14.8) Platelet Count 286 K/UL (150-450) Mean Platelet Volume 7.4 FL (6.5-10.1) Neutrophils (%) (Auto) % (45.0-75.0) Lymphocytes (%) (Auto) % (20.0-45.0) Monocytes (%) (Auto) % (1.0-10.0) Eosinophils (%) (Auto) % (0.0-3.0) Basophils (%) (Auto) % (0.0-2.0) Sodium Level 138 MMOL/L (136-145) Potassium Level 4.1 MMOL/L (3.5-5.1) Chloride Level 104 MMOL/L (98-107) Carbon Dioxide Level 23 MMOL/L (21-32) Anion Gap 11 mmol/L (5-15) Blood Urea Nitrogen 32 mg/dL (7-18) Creatinine 1.7 MG/DL (0.55-1.30) Estimat Glomerular Filtration Rate mL/min (>60) Glucose Level 133 MG/DL (74-106) Hemoglobin A1c 5.7 % (4.3-6.0) Uric Acid 11.1 MG/DL (2.6-7.2) Calcium Level 8.5 MG/DL (8.5-10.1) Phosphorus Level 4.0 MG/DL (2.5-4.9) Magnesium Level 1.7 MG/DL (1.8-2.4) Total Bilirubin 1.2 MG/DL (0.2-1.0) Direct Bilirubin 0.4 MG/DL (0.0-0.3) Gamma Glutamyl Transpeptidase 54 U/L (5-85) Aspartate Amino Transf (AST/SGOT) 69 U/L (15-37) Alanine Aminotransferase (ALT/SGPT) 121 U/L (12-78) Alkaline Phosphatase 79 U/L (46-116) Total Creatine Kinase 40 U/L (26-308) Troponin I 1.028 ng/mL (0.000-0.056) 1.263 ng/mL (0.000-0.056) 1.580 ng/mL (0.000-0.056) Total Protein 6.8 G/DL (6.4-8.2) Albumin 2.2 G/DL (3.4-5.0) Globulin 4.6 g/dL Albumin/Globulin Ratio 0.5 (1.0-2.7) Triglycerides Level 87 MG/DL (30-150) Cholesterol Level 133 MG/DL (< 200) LDL Cholesterol 80 mg/dL (<100) HDL Cholesterol 30 MG/DL (40-60) Cholesterol/HDL Ratio 4.4 (3.3-4.4) Vitamin B12 Level 1427 PG/ML (193-986) Thyroid Stimulating Hormone (TSH) 1.174 uiU/mL (0.358-3.740) Test 11/15/19 03:50 Sodium Level 138 MMOL/L (136-145) Potassium Level 4.0 MMOL/L (3.5-5.1) Chloride Level 106 MMOL/L (98-107) Carbon Dioxide Level 21 MMOL/L (21-32) Anion Gap 11 mmol/L (5-15) Blood Urea Nitrogen 36 mg/dL (7-18) Creatinine 1.8 MG/DL (0.55-1.30) Estimat Glomerular Filtration Rate mL/min (>60) Glucose Level 123 MG/DL (74-106) Lactic Acid Level 1.30 mmol/L (0.4-2.0) Uric Acid 11.1 MG/DL (2.6-7.2) Calcium Level 8.2 MG/DL (8.5-10.1) Phosphorus Level 4.3 MG/DL (2.5-4.9) Magnesium Level 2.3 MG/DL (1.8-2.4) Total Bilirubin 0.9 MG/DL (0.2-1.0) Aspartate Amino Transf (AST/SGOT) 35 U/L (15-37) Alanine Aminotransferase (ALT/SGPT) 82 U/L (12-78) Alkaline Phosphatase 73 U/L (46-116) Troponin I 1.448 ng/mL (0.000-0.056) Total Protein 6.5 G/DL (6.4-8.2) Albumin 1.9 G/DL (3.4-5.0) Globulin 4.6 g/dL Albumin/Globulin Ratio 0.4 (1.0-2.7) Height (Feet): 5 Height (Inches): 6.00 Weight (Pounds): 165 Objective PHYSICAL EXAMINATION: GENERAL: Shows to be an elderly female, in no respiratory distress. HEENT: Unremarkable. NECK: Supple. No jugular venous distention. LUNGS: Crackles noted on the right base. CARDIAC: Regular rate and rhythm. No heaves, thrills, or gallops noted. ABDOMEN: Soft and nontender. Positive bowel sounds. EXTREMITIES: There is no edema. NEUROLOGIC: She is awake and responsive. Elder Paredes MD Nov 15, 2019 06:15
--- NOTE | 2019-11-15 06:30 | NUR ---
NURSE NOTES: Received critical value from MAEGAN Macedo Troponin 1.448. Informed Dr Jones when he was at the nurses station.
--- NOTE | 2019-11-15 06:45 | NUR ---
NURSE NOTES: requested documentation on patients ovarian cancer from [facility]. I will contact the daughter to get the medical records.
--- NOTE | 2019-11-15 07:20 | NUR ---
NURSE NOTES: received patient report from ragini kamara. patient is on bed awake.omfortably eating breakfast. not in acute distress. no arrythmias last night. on O2 @ 2LI NC. bed is low and locked for safety. will follow plan of care.
[2019-11-15 08:00] VITALS: BP 112/70
[2019-11-15] MEDS: Aspirin Baby 81mg ORAL SCH (08:54)
[2019-11-15] MEDS: Docusate 100mg cap ORAL SCH ×2 (09:02→17:18)
--- NOTE | 2019-11-15 10:32 | Nephrology Progress Note ---
Assessment/Plan Problem List: (1) Renal failure (ARF), acute on chronic (2) NSTEMI (non-ST elevated myocardial infarction) (3) UTI (urinary tract infection) (4) Ovarian cancer Assessment: by history (5) Cardiomyopathy Assessment Renal failure : Acute vs Chronic, associate: HyperKalemia UTI / Proteinuria / Leukocytosis Elevated Troponin and LFTs elevated troponin History of ovarian CA. Plan Adjust BP meds- afterload reduction PRN BP meds Urine studies Per orders low dose lasix 2D echo 30% EjFx ISSA kidney Negative for hydronephrosis Slow Hydrate Subjective ROS Limited/Unobtainable: No Constitutional: Reports: malaise, weakness Objective Objective Last 24 Hour Vital Signs Date Time Temp Pulse Resp B/P (MAP) Pulse Ox O2 Delivery O2 Flow Rate FiO2 11/15/19 09:00 83 112/70 11/15/19 08:00 Nasal Cannula 2.0 11/15/19 08:00 98.5 83 22 112/70 (84) 98 11/15/19 08:00 2.0 11/15/19 06:23 114/76 11/15/19 04:00 2.0 11/15/19 04:00 Nasal Cannula 2.0 11/15/19 04:00 98.5 77 20 114/76 (89) 100 11/15/19 04:00 79 11/15/19 00:50 132/61 11/15/19 00:00 97.9 80 24 132/61 (84) 98 11/15/19 00:00 78 11/15/19 00:00 2.0 11/15/19 00:00 Nasal Cannula 2.0 11/14/19 21:28 104/73 11/14/19 21:00 79 104/73 11/14/19 20:00 Nasal Cannula 2.0 11/14/19 20:00 82 11/14/19 20:00 98.0 79 24 104/73 (83) 99 11/14/19 20:00 2.0 11/14/19 19:26 73 18 100 Nasal Cannula 2.0 28 69 18 99 11/14/19 19:25 99 Nasal Cannula 2.0 28 11/14/19 18:26 122/84 11/14/19 17:23 Nasal Cannula 2.0 11/14/19 16:00 2.0 11/14/19 16:00 Nasal Cannula 2.0 11/14/19 16:00 98.7 79 20 122/84 (97) 94 11/14/19 15:57 77 11/14/19 12:00 2.0 11/14/19 12:00 98.5 74 18 109/60 (76) 97 11/14/19 12:00 Nasal Cannula 2.0 11/14/19 11:25 75 Intake and Output 11/14/19 11/15/19 18:59 06:59 Intake Total 1060.833 ml 50 ml Output Total 200 ml Balance 1060.833 ml -150 ml Intake Oral 360 ml IV Total 700.833 ml 50 ml Output Urine Total 200 ml # Voids 2 Current Medications Medications (Trade) Dose Ordered Sig/Ronn Route PRN Reason Start Time Stop Time Status Last Admin Dose Admin Albuterol Sulfate (Proventil) 2.5 mg Q4H PRN HHN Shortness of Breath 11/14/19 19:00 11/19/19 18:59 11/14/19 19:24 Aspirin (ASA) 81 mg DAILY ORAL 11/14/19 09:00 12/14/19 08:59 11/15/19 08:54 Atorvastatin Calcium (Lipitor) 80 mg BEDTIME ORAL 11/14/19 21:00 12/14/19 20:59 11/14/19 21:28 Dextrose/Sodium Chloride 1,000 ml @ 50 mls/hr Q20H IV 11/13/19 20:00 12/13/19 19:59 11/15/19 11:29 Docusate Sodium (Colace) 100 mg TWICE A DAY ORAL 11/14/19 09:00 12/14/19 08:59 11/15/19 09:02 Folic Acid (Folate) 1 mg DAILY ORAL 11/14/19 09:00 12/14/19 08:59 11/15/19 08:59 Gabapentin (Neurontin) 300 mg BID ORAL 11/13/19 15:00 12/13/19 14:59 11/15/19 08:58 Hydralazine HCl (Apresoline) 25 mg Q4H PRN ORAL bp over 160 syst 11/13/19 18:53 12/13/19 18:52 Hydroxychloroquine Sulfate (Plaquenil) 200 mg TWICE A DAY ORAL 11/13/19 18:00 2/21/20 17:59 11/15/19 09:02 Isosorbide Dinitrate (Isordil) 10 mg Q6HR ORAL 11/14/19 12:00 12/14/19 11:59 11/15/19 11:29 Metoprolol Tartrate (Lopressor) 25 mg Q12HR ORAL 11/13/19 21:00 12/13/19 20:59 11/15/19 09:00 Nitroglycerin (Ntg) 1 patch Q24H TDERMAL 11/13/19 21:00 12/13/19 20:59 11/14/19 21:28 Pantoprazole (Protonix) 40 mg Q12HR ORAL 11/13/19 21:00 12/13/19 14:44 11/15/19 09:02 Laboratory Tests 11/14/19 11:55: Troponin I 1.263H, CA 125 Antigen [Pending] 11/14/19 20:20: Troponin I 1.580H 11/15/19 03:40: Urine Eosinophils None seen 11/15/19 03:50: Troponin I 1.448H, Sodium Level 138, Potassium Level 4.0, Chloride Level 106, Carbon Dioxide Level 21, Anion Gap 11, Blood Urea Nitrogen 36H, Creatinine 1.8H , Estimat Glomerular Filtration Rate , Glucose Level 123H, Lactic Acid Level 1.30, Uric Acid 11.1H, Calcium Level 8.2L, Phosphorus Level 4.3, Magnesium Level 2.3, Total Bilirubin 0.9, Aspartate Amino Transf (AST/SGOT) 35, Alanine Aminotransferase (ALT/SGPT) 82H, Alkaline Phosphatase 73, Pro-B-Type Natriuretic Peptide [Pending], Total Protein 6.5, Albumin 1.9L, Globulin 4.6, Albumin/Globulin Ratio 0.4L Height (Feet): 5 Height (Inches): 6.00 Weight (Pounds): 165 General Appearance: no apparent distress Cardiovascular: normal rate Respiratory/Chest: decreased breath sounds Abdomen: soft Nazario Vora MD Nov 15, 2019 10:32
[2019-11-15] MEDS: D5NS 1,000 ML IV SCH (11:29)
[2019-11-15 12:00] VITALS: BP 104/64
[2019-11-15] MEDS: HydrALAZINE 10mg Tab ORAL SCH ×2 (12:15→17:19)
--- NOTE | 2019-11-15 12:30 | NUR ---
*-* INSURANCE *-* UPDATED CLINICALS HAVE BEEN FAXED TO: [facility] P: [phone] F: [phone] REF# [id number]
--- NOTE | 2019-11-15 14:31 | NUR ---
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
[2019-11-15 16:00] VITALS: BP 122/74
--- NOTE | 2019-11-15 17:52 | Cardiology Progress Note ---
Assessment/Plan Assessment/Plan 1. Reported history of cardiomyopathy. 2. Shortness of breath, secondary to congestive heart failure, rule out an additional infectious cause. 3. Renal insufficiency. 4. Abnormal cardiac enzymes / NSTEMI 5. History of coronary artery disease with apparently prior documented angioplasties. 6. Systemic hypertension. 7. Hyperlipidemia. 8. Degenerative joint disease. 9. Pulm htn 10. ovarian cancer? 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 bob at [facility] , saw her 1 week ago per pt await echo repeat cardaic enzyme and ekg and started on ecotrin and i s on statin not cp now ekg with out st changes tele reviwed seem sinus Subjective Cardiovascular: Denies: chest pain, lightheadedness, palpitations Respiratory: Reports: cough, shortness of breath Gastrointestinal/Abdominal: Denies: abdominal pain Genitourinary: Denies: burning Objective Last 24 Hour Vital Signs Date Time Temp Pulse Resp B/P (MAP) Pulse Ox O2 Delivery O2 Flow Rate FiO2 11/15/19 17:18 122/74 11/15/19 16:00 80 11/15/19 16:00 Nasal Cannula 2.0 11/15/19 16:00 2.0 11/15/19 16:00 98.2 86 19 122/74 (90) 98 11/15/19 12:15 104/64 11/15/19 12:00 Nasal Cannula 2.0 11/15/19 12:00 98.1 84 21 104/64 (77) 98 11/15/19 12:00 2.0 11/15/19 11:29 112/70 11/15/19 11:26 77 11/15/19 09:00 83 112/70 11/15/19 08:00 Nasal Cannula 2.0 11/15/19 08:00 98.5 83 22 112/70 (84) 98 11/15/19 08:00 2.0 11/15/19 07:55 98 Nasal Cannula 2.0 28 11/15/19 07:47 76 11/15/19 06:23 114/76 11/15/19 04:00 2.0 11/15/19 04:00 Nasal Cannula 2.0 11/15/19 04:00 98.5 77 20 114/76 (89) 100 11/15/19 04:00 79 11/15/19 00:50 132/61 11/15/19 00:00 97.9 80 24 132/61 (84) 98 11/15/19 00:00 78 11/15/19 00:00 2.0 11/15/19 00:00 Nasal Cannula 2.0 11/14/19 21:28 104/73 11/14/19 21:00 79 104/73 11/14/19 20:00 Nasal Cannula 2.0 11/14/19 20:00 82 11/14/19 20:00 98.0 79 24 104/73 (83) 99 11/14/19 20:00 2.0 11/14/19 19:26 73 18 100 Nasal Cannula 2.0 28 69 18 99 11/14/19 19:25 99 Nasal Cannula 2.0 28 11/14/19 18:26 122/84 General Appearance: no apparent distress, alert Neck: supple Cardiovascular: normal rate Respiratory/Chest: decreased breath sounds, crackles/rales Abdomen: normal bowel sounds, non tender, soft Extremities: no swelling Intake and Output 11/14/19 11/15/19 19:00 07:00 Intake Total 1060.833 ml Output Total 200 ml Balance 1060.833 ml -200 ml Intake Oral 360 ml IV Total 700.833 ml Output Urine Total 200 ml # Voids 2 Laboratory Tests Test 11/14/19 20:20 11/15/19 03:40 11/15/19 03:50 Troponin I 1.580 ng/mL (0.000-0.056) 1.448 ng/mL (0.000-0.056) Urine Eosinophils None seen (NONE SEEN) Sodium Level 138 MMOL/L (136-145) Potassium Level 4.0 MMOL/L (3.5-5.1) Chloride Level 106 MMOL/L (98-107) Carbon Dioxide Level 21 MMOL/L (21-32) Anion Gap 11 mmol/L (5-15) Blood Urea Nitrogen 36 mg/dL (7-18) H Creatinine 1.8 MG/DL (0.55-1.30) H Estimat Glomerular Filtration Rate mL/min (>60) Glucose Level 123 MG/DL (74-106) H Lactic Acid Level 1.30 mmol/L (0.4-2.0) Uric Acid 11.1 MG/DL (2.6-7.2) H Calcium Level 8.2 MG/DL (8.5-10.1) L Phosphorus Level 4.3 MG/DL (2.5-4.9) Magnesium Level 2.3 MG/DL (1.8-2.4) Total Bilirubin 0.9 MG/DL (0.2-1.0) Aspartate Amino Transf (AST/SGOT) 35 U/L (15-37) Alanine Aminotransferase (ALT/SGPT) 82 U/L (12-78) H Alkaline Phosphatase 73 U/L (46-116) Pro-B-Type Natriuretic Peptide Pending Total Protein 6.5 G/DL (6.4-8.2) Albumin 1.9 G/DL (3.4-5.0) L Globulin 4.6 g/dL Albumin/Globulin Ratio 0.4 (1.0-2.7) L Rasheed Shaikh MD Nov 15, 2019 17:52
--- NOTE | 2019-11-15 18:14 | Pulmonology Progress Note ---
Subjective Allergies: Coded Allergies: No Known Allergies (Unverified , 11/13/19) Objective Last 24 Hour Vital Signs Date Time Temp Pulse Resp B/P (MAP) Pulse Ox O2 Delivery O2 Flow Rate FiO2 11/15/19 17:18 122/74 11/15/19 16:00 80 11/15/19 16:00 Nasal Cannula 2.0 11/15/19 16:00 2.0 11/15/19 16:00 98.2 86 19 122/74 (90) 98 11/15/19 12:15 104/64 11/15/19 12:00 Nasal Cannula 2.0 11/15/19 12:00 98.1 84 21 104/64 (77) 98 11/15/19 12:00 2.0 11/15/19 11:29 112/70 11/15/19 11:26 77 11/15/19 09:00 83 112/70 11/15/19 08:00 Nasal Cannula 2.0 11/15/19 08:00 98.5 83 22 112/70 (84) 98 11/15/19 08:00 2.0 11/15/19 07:55 98 Nasal Cannula 2.0 28 11/15/19 07:47 76 11/15/19 06:23 114/76 11/15/19 04:00 2.0 11/15/19 04:00 Nasal Cannula 2.0 11/15/19 04:00 98.5 77 20 114/76 (89) 100 11/15/19 04:00 79 11/15/19 00:50 132/61 11/15/19 00:00 97.9 80 24 132/61 (84) 98 11/15/19 00:00 78 11/15/19 00:00 2.0 11/15/19 00:00 Nasal Cannula 2.0 11/14/19 21:28 104/73 11/14/19 21:00 79 104/73 11/14/19 20:00 Nasal Cannula 2.0 11/14/19 20:00 82 11/14/19 20:00 98.0 79 24 104/73 (83) 99 11/14/19 20:00 2.0 11/14/19 19:26 73 18 100 Nasal Cannula 2.0 28 69 18 99 11/14/19 19:25 99 Nasal Cannula 2.0 28 11/14/19 18:26 122/84 Intake and Output 11/14/19 11/15/19 19:00 07:00 Intake Total 1060.833 ml Output Total 200 ml Balance 1060.833 ml -200 ml Intake Oral 360 ml IV Total 700.833 ml Output Urine Total 200 ml # Voids 2 Laboratory Tests 11/14/19 20:20: Troponin I 1.580H 11/15/19 03:40: Urine Eosinophils None seen 11/15/19 03:50: Troponin I 1.448H, Sodium Level 138, Potassium Level 4.0, Chloride Level 106, Carbon Dioxide Level 21, Anion Gap 11, Blood Urea Nitrogen 36H, Creatinine 1.8H , Estimat Glomerular Filtration Rate , Glucose Level 123H, Lactic Acid Level 1.30, Uric Acid 11.1H, Calcium Level 8.2L, Phosphorus Level 4.3, Magnesium Level 2.3, Total Bilirubin 0.9, Aspartate Amino Transf (AST/SGOT) 35, Alanine Aminotransferase (ALT/SGPT) 82H, Alkaline Phosphatase 73, Pro-B-Type Natriuretic Peptide [Pending], Total Protein 6.5, Albumin 1.9L, Globulin 4.6, Albumin/Globulin Ratio 0.4L Current Medications Medications (Trade) Dose Ordered Sig/Ronn Route PRN Reason Start Time Stop Time Status Last Admin Dose Admin Acetaminophen (Tylenol) 650 mg Q6H PRN ORAL Mild Pain/Temp > 100.5 11/15/19 18:00 12/15/19 17:59 Albuterol Sulfate (Proventil) 2.5 mg Q4H PRN HHN Shortness of Breath 11/14/19 19:00 11/19/19 18:59 11/14/19 19:24 Allopurinol (allopurinoL) 300 mg DAILY ORAL 11/16/19 09:00 12/16/19 08:59 Aspirin (ASA) 81 mg DAILY ORAL 11/14/19 09:00 12/14/19 08:59 11/15/19 08:54 Atorvastatin Calcium (Lipitor) 80 mg BEDTIME ORAL 11/14/19 21:00 12/14/19 20:59 11/14/19 21:28 Docusate Sodium (Colace) 100 mg TWICE A DAY ORAL 11/14/19 09:00 12/14/19 08:59 11/15/19 09:02 Folic Acid (Folate) 1 mg DAILY ORAL 11/14/19 09:00 12/14/19 08:59 11/15/19 08:59 Furosemide (Lasix) 20 mg DAILY ORAL 11/16/19 09:00 12/16/19 08:59 Gabapentin (Neurontin) 300 mg BID ORAL 11/13/19 15:00 12/13/19 14:59 11/15/19 17:18 Hydralazine HCl (Apresoline) 10 mg Q6HR ORAL 11/15/19 12:15 12/15/19 12:14 Hydralazine HCl (Apresoline) 25 mg Q4H PRN ORAL bp over 160 syst 11/13/19 18:53 12/13/19 18:52 Hydroxychloroquine Sulfate (Plaquenil) 200 mg TWICE A DAY ORAL 11/13/19 18:00 12/13/19 17:59 11/15/19 17:18 Isosorbide Dinitrate (Isordil) 10 mg Q6HR ORAL 11/15/19 18:00 12/15/19 17:59 11/15/19 17:18 Metoprolol Tartrate (Lopressor) 25 mg Q12HR ORAL 11/13/19 21:00 12/13/19 20:59 11/15/19 09:00 Nitroglycerin (Ntg) 1 patch Q24H TDERMAL 11/13/19 21:00 12/13/19 20:59 11/14/19 21:28 Pantoprazole (Protonix) 40 mg Q12HR ORAL 11/13/19 21:00 12/13/19 14:44 11/15/19 09:02 Elie Reyes MD Nov 15, 2019 18:14
--- NOTE | 2019-11-15 19:24 | NUR ---
HAND-OFF: Report given to bessy kamara.
--- NOTE | 2019-11-15 19:27 | NUR ---
NURSE NOTES: Received report from MAEGAN Ni. Patient resting in bed. No signs of distress. on O2 @ 2L via NC. Safety precautions in place. HOB elevated, best is locked and lowest position, call light within reach. Will continue to monitor patient.
[2019-11-15 20:00] VITALS: BP 120/80
--- NOTE | 2019-11-15 20:01 | Progress Note ---
DATE: 11/15/2019 HISTORY: The patient is seen and evaluated. OBJECTIVE: VITAL SIGNS: Please see attached note. HEENT: Negative. NECK: Supple. LUNGS: Moderate breath sounds. Symmetric. CARDIAC: S1, S2. Regular rate and rhythm without murmurs, rubs. ABDOMEN: Overall soft, nontender. EXTREMITIES: No edema. NEUROLOGICAL: Appears to be fairly with reduced mental status. LABORATORY DATA: See attached. IMPRESSION: 1. Evidence of leukocytosis. 2. Renal failure, acute on chronic. 3. Mild fluid overload. 4. History of respiratory failure, now improved. 5. Non-STEMI IL. 6. Ovarian cancer. RECOMMENDATIONS: Supportive care. Monitor further changes and interventions of BiPAP and monitor. Monitor fluid status and keep negative. Optimize care and proceed with discharge planning as per primary care team. Provide nebulizer therapy as needed. Elie Reyes M.D. DR: KASSANDRA JOB#: [id number] CC:
[2019-11-15] MEDS: Atorvastatin 80mg tab ORAL SCH (21:00)
[2019-11-15] MEDS: Nitroglycerin Patch 0.4mg TDERMAL SCH (21:02)
[2019-11-16] VITALS: BP 117/74
[2019-11-16] MEDS: HydrALAZINE 10mg Tab ORAL SCH
[2019-11-16 04:00] VITALS: BP 111/58
--- NOTE | 2019-11-16 06:30 | NUR ---
NURSE NOTES: Notified Dr. Galdamez regarding episode of 13 beats Vtach without symptoms. will continue to monitor patient condition.
[2019-11-16] MEDS ORDERED: HydrALAZINE 10mg Tab ORAL PRN (06:45)
--- NOTE | 2019-11-16 07:20 | NUR ---
NURSE NOTES: Received report from MAEGAN Glaser. Patient is resting in bed, in stable condition, eating breakfast. No s/sx of SOB, breathing is even and unlabored. Denies any presence of pain or discomfort at this time. Bed is in lowest position, brakes engaged. Call light is kept within easy reach. Will continue to monitor patient.
--- NOTE | 2019-11-16 07:25 | NUR ---
HAND-OFF: Report given to Shawn Araujo RN. Pt in stable condition.
[2019-11-16 08:00] VITALS: BP 110/77
[2019-11-16] MEDS: Aspirin Baby 81mg ORAL SCH (09:05)
[2019-11-16] MEDS: Docusate 100mg cap ORAL SCH ×2 (09:06→17:32)
[2019-11-16 10:35] LABS: ANION GAP 13 mmol/L (5-15); BLOOD UREA NITROGEN 39 mg/dL (7-18); CALCIUM 8.5 MG/DL (8.5-10.1); CARBON DIOXIDE 20 MMOL/L (21-32); CHLORIDE 108 MMOL/L (98-107); CREATININE 1.8 MG/DL (0.55-1.30); POTASSIUM 4.2 MMOL/L (3.5-5.1); SODIUM 141 MMOL/L (136-145)
[2019-11-16 10:46] LABS: ALANINE AMINOTRANSFERASE 65 U/L (12-78); ALBUMIN/GLOBULIN RATIO 0.5 (1.0-2.7); ALKALINE PHOSPHATASE 75 U/L (46-116); ASPARTATE AMINO TRANSFERASE 31 U/L (15-37); BILIRUBIN,TOTAL 0.5 MG/DL (0.2-1.0); PHOSPHORUS 4.1 MG/DL (2.5-4.9)
--- NOTE | 2019-11-16 11:17 | Nephrology Progress Note ---
Assessment/Plan Problem List: (1) Renal failure (ARF), acute on chronic (2) NSTEMI (non-ST elevated myocardial infarction) (3) UTI (urinary tract infection) (4) Ovarian cancer Assessment: by history (5) Cardiomyopathy Assessment Renal failure : Acute vs Chronic, associate: HyperKalemia UTI / Proteinuria / Leukocytosis Elevated Troponin and LFTs elevated troponin History of ovarian CA. Plan Adjust BP meds- afterload reduction PRN BP meds Urine studies Per orders low dose lasix 2D echo 30% EjFx ISSA kidney Negative for hydronephrosis Slow Hydrate Subjective ROS Limited/Unobtainable: No Constitutional: Reports: malaise Objective Objective Last 24 Hour Vital Signs Date Time Temp Pulse Resp B/P (MAP) Pulse Ox O2 Delivery O2 Flow Rate FiO2 11/16/19 09:05 75 109/77 11/16/19 08:00 71 11/16/19 08:00 Nasal Cannula 2.0 11/16/19 08:00 97.9 68 20 110/77 (88) 98 11/16/19 07:04 111/58 11/16/19 07:00 99 Nasal Cannula 2.0 28 11/16/19 04:00 Nasal Cannula 2.0 11/16/19 04:00 98.1 74 24 111/58 (75) 98 11/16/19 04:00 73 11/16/19 00:25 117/74 11/16/19 00:00 84 11/16/19 00:00 Nasal Cannula 2.0 11/16/19 00:00 98.2 82 24 117/74 (88) 98 11/16/19 00:00 117/74 11/15/19 21:02 120/80 11/15/19 21:00 90 120/80 11/15/19 20:00 98.6 90 26 120/80 (93) 98 11/15/19 20:00 86 11/15/19 20:00 Nasal Cannula 2.0 11/15/19 20:00 2.0 11/15/19 19:07 97 Nasal Cannula 2.0 28 11/15/19 17:18 122/74 11/15/19 16:00 80 11/15/19 16:00 Nasal Cannula 2.0 11/15/19 16:00 2.0 11/15/19 16:00 98.2 86 19 122/74 (90) 98 11/15/19 12:15 104/64 11/15/19 12:00 Nasal Cannula 2.0 11/15/19 12:00 98.1 84 21 104/64 (77) 98 11/15/19 12:00 2.0 11/15/19 11:29 112/70 11/15/19 11:26 77 Intake and Output 11/15/19 11/16/19 19:00 07:00 Intake Total 350 ml 200 ml Output Total 300 ml Balance 350 ml -100 ml Intake Oral 200 ml 200 ml IV Total 150 ml Output Urine Total 300 ml # Voids 2 Laboratory Tests 11/16/19 05:00: Urine Eosinophils None seen 11/16/19 07:55: Sodium Level 141, Potassium Level 4.2, Chloride Level 108H, Carbon Dioxide Level 20L, Anion Gap 13, Blood Urea Nitrogen 39H, Creatinine 1.8H, Estimat Glomerular Filtration Rate , Glucose Level 129H, Calcium Level 8.5, Phosphorus Level 4.1, Magnesium Level 2.4, Total Bilirubin 0.5, Aspartate Amino Transf (AST /SGOT) 31, Alanine Aminotransferase (ALT/SGPT) 65, Alkaline Phosphatase 75, Troponin I 1.317H, C-Reactive Protein, Quantitative 17.8H, Pro-B-Type Natriuretic Peptide 96257U, Total Protein 6.4, Albumin 2.0L, Globulin 4.4, Albumin/Globulin Ratio 0.5L Height (Feet): 5 Height (Inches): 6.00 Weight (Pounds): 165 General Appearance: no apparent distress Cardiovascular: normal rate Respiratory/Chest: decreased breath sounds Abdomen: soft Nazario Vora MD Nov 16, 2019 11:17
[2019-11-16 11:55] VITALS: BP 102/71
[2019-11-16] MEDS: Lisinopril 2.5mg tab ORAL SCH (12:02)
--- NOTE | 2019-11-16 13:22 | NUR ---
NURSE NOTES: Dr. Shaikh at nurse station, made aware of troponin level of 1.317 trending down from 1.448 yesterday. No c/o chest pain, pt is on 4L NC, tolerating SpO2 99%. Dr. Shaikh acknowledged, no new orders given at this time. Will continuet o monitor patient.
--- NOTE | 2019-11-16 13:44 | Cardiology Progress Note ---
Assessment/Plan Assessment/Plan 1. Reported history of cardiomyopathy. 2. Shortness of breath, secondary to congestive heart failure, rule out an additional infectious cause. 3. Renal insufficiency. 4. Abnormal cardiac enzymes / NSTEMI 5. History of coronary artery disease with apparently prior documented angioplasties. 6. Systemic hypertension. 7. Hyperlipidemia. 8. Degenerative joint disease. 9. Pulm htn 10. 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 [facility] , saw her 1 week ago per pt await echo repeat cardaic enzyme and ekg and started on ecotrin and i s on statin diuretics not cp now ekg with out st changes tele reviwed seem sinus needed higher oxygen today Subjective Cardiovascular: Denies: chest pain, lightheadedness, palpitations Respiratory: Reports: cough, shortness of breath, sputum Gastrointestinal/Abdominal: Denies: abdominal pain Genitourinary: Denies: burning Objective Last 24 Hour Vital Signs Date Time Temp Pulse Resp B/P (MAP) Pulse Ox O2 Delivery O2 Flow Rate FiO2 11/16/19 12:02 114/75 11/16/19 12:00 64 11/16/19 11:55 97.7 67 20 102/71 (81) 99 11/16/19 09:05 75 109/77 11/16/19 08:00 71 11/16/19 08:00 Nasal Cannula 2.0 11/16/19 08:00 97.9 68 20 110/77 (88) 98 11/16/19 07:04 111/58 11/16/19 07:00 99 Nasal Cannula 2.0 28 11/16/19 04:00 Nasal Cannula 2.0 11/16/19 04:00 98.1 74 24 111/58 (75) 98 11/16/19 04:00 73 11/16/19 00:25 117/74 11/16/19 00:00 84 11/16/19 00:00 Nasal Cannula 2.0 11/16/19 00:00 98.2 82 24 117/74 (88) 98 11/16/19 00:00 117/74 11/15/19 21:02 120/80 11/15/19 21:00 90 120/80 11/15/19 20:00 98.6 90 26 120/80 (93) 98 11/15/19 20:00 86 11/15/19 20:00 Nasal Cannula 2.0 11/15/19 20:00 2.0 11/15/19 19:07 97 Nasal Cannula 2.0 28 11/15/19 17:18 122/74 11/15/19 16:00 80 11/15/19 16:00 Nasal Cannula 2.0 11/15/19 16:00 2.0 11/15/19 16:00 98.2 86 19 122/74 (90) 98 General Appearance: no apparent distress, alert Neck: supple Cardiovascular: normal rate Respiratory/Chest: crackles/rales Abdomen: normal bowel sounds, non tender, soft Extremities: no swelling Intake and Output 11/15/19 11/16/19 19:00 07:00 Intake Total 350 ml 200 ml Output Total 300 ml Balance 350 ml -100 ml Intake Oral 200 ml 200 ml IV Total 150 ml Output Urine Total 300 ml # Voids 2 Laboratory Tests Test 11/16/19 05:00 11/16/19 07:55 Urine Eosinophils None seen (NONE SEEN) Sodium Level 141 MMOL/L (136-145) Potassium Level 4.2 MMOL/L (3.5-5.1) Chloride Level 108 MMOL/L (98-107) H Carbon Dioxide Level 20 MMOL/L (21-32) L Anion Gap 13 mmol/L (5-15) Blood Urea Nitrogen 39 mg/dL (7-18) H Creatinine 1.8 MG/DL (0.55-1.30) H Estimat Glomerular Filtration Rate mL/min (>60) Glucose Level 129 MG/DL (74-106) H Calcium Level 8.5 MG/DL (8.5-10.1) Phosphorus Level 4.1 MG/DL (2.5-4.9) Magnesium Level 2.4 MG/DL (1.8-2.4) Total Bilirubin 0.5 MG/DL (0.2-1.0) Aspartate Amino Transf (AST/SGOT) 31 U/L (15-37) Alanine Aminotransferase (ALT/SGPT) 65 U/L (12-78) Alkaline Phosphatase 75 U/L (46-116) Troponin I 1.317 ng/mL (0.000-0.056) C-Reactive Protein, Quantitative 17.8 mg/dL (0.00-0.90) H Pro-B-Type Natriuretic Peptide 87592 pg/mL (0-125) H Total Protein 6.4 G/DL (6.4-8.2) Albumin 2.0 G/DL (3.4-5.0) L Globulin 4.4 g/dL Albumin/Globulin Ratio 0.5 (1.0-2.7) L Rasheed Shaikh MD Nov 16, 2019 13:44
[2019-11-16 16:00] VITALS: BP 117/72
--- NOTE | 2019-11-16 16:46 | Pulmonology Progress Note ---
Assessment/Plan Assessment/Plan Renal failure : Acute vs Chronic HyperKalemia UTI / Proteinuria / Leukocytosis Elevated Troponin and LFTs PLAN Seen by cardiology and nephrology Off BiPAP now Continue O2; check RA SaO2 DC planning for home in AM Continue present medications Await AM labs Subjective Interval Events: None new; SaO2 100% on 2L/min O2 Constitutional: Reports: no symptoms HEENT: Repors: no symptoms Respiratory: Reports: no symptoms Cardiovascular: Reports: no symptoms Gastrointestinal/Abdominal: Reports: no symptoms Allergies: Coded Allergies: No Known Allergies (Unverified , 11/13/19) Objective Last 24 Hour Vital Signs Date Time Temp Pulse Resp B/P (MAP) Pulse Ox O2 Delivery O2 Flow Rate FiO2 11/16/19 16:00 Nasal Cannula 2.0 11/16/19 16:00 97.7 62 20 117/72 (87) 100 11/16/19 14:29 117/72 11/16/19 12:02 114/75 11/16/19 12:00 Nasal Cannula 2.0 11/16/19 12:00 64 11/16/19 11:55 97.7 67 20 102/71 (81) 99 11/16/19 09:05 75 109/77 11/16/19 08:00 71 11/16/19 08:00 Nasal Cannula 2.0 11/16/19 08:00 97.9 68 20 110/77 (88) 98 11/16/19 07:04 111/58 11/16/19 07:00 99 Nasal Cannula 2.0 28 11/16/19 04:00 Nasal Cannula 2.0 11/16/19 04:00 98.1 74 24 111/58 (75) 98 11/16/19 04:00 73 11/16/19 00:25 117/74 11/16/19 00:00 84 11/16/19 00:00 Nasal Cannula 2.0 11/16/19 00:00 98.2 82 24 117/74 (88) 98 11/16/19 00:00 117/74 11/15/19 21:02 120/80 11/15/19 21:00 90 120/80 11/15/19 20:00 98.6 90 26 120/80 (93) 98 11/15/19 20:00 86 11/15/19 20:00 Nasal Cannula 2.0 11/15/19 20:00 2.0 11/15/19 19:07 97 Nasal Cannula 2.0 28 11/15/19 17:18 122/74 Intake and Output 11/15/19 11/16/19 19:00 07:00 Intake Total 350 ml 200 ml Output Total 300 ml Balance 350 ml -100 ml Intake Oral 200 ml 200 ml IV Total 150 ml Output Urine Total 300 ml # Voids 2 General Appearance: no acute distress HEENT: normocephalic Respiratory/Chest: chest wall non-tender Cardiovascular: normal peripheral pulses, normal rate Abdomen: normal bowel sounds Laboratory Tests 11/16/19 05:00: Urine Eosinophils None seen 11/16/19 07:55: Sodium Level 141, Potassium Level 4.2, Chloride Level 108H, Carbon Dioxide Level 20L, Anion Gap 13, Blood Urea Nitrogen 39H, Creatinine 1.8H, Estimat Glomerular Filtration Rate , Glucose Level 129H, Calcium Level 8.5, Phosphorus Level 4.1, Magnesium Level 2.4, Total Bilirubin 0.5, Aspartate Amino Transf (AST /SGOT) 31, Alanine Aminotransferase (ALT/SGPT) 65, Alkaline Phosphatase 75, Troponin I 1.317H, C-Reactive Protein, Quantitative 17.8H, Pro-B-Type Natriuretic Peptide [id number], Total Protein 6.4, Albumin 2.0L, Globulin 4.4, Albumin/Globulin Ratio 0.5L Current Medications Medications (Trade) Dose Ordered Sig/Ronn Route PRN Reason Start Time Stop Time Status Last Admin Dose Admin Acetaminophen (Tylenol) 650 mg Q6H PRN ORAL Mild Pain/Temp > 100.5 11/15/19 18:00 12/15/19 17:59 11/15/19 18:48 Albuterol Sulfate (Proventil) 2.5 mg Q4H PRN HHN Shortness of Breath 11/14/19 19:00 11/19/19 18:59 11/14/19 19:24 Allopurinol (allopurinoL) 300 mg DAILY ORAL 11/16/19 09:00 12/16/19 08:59 11/16/19 09:05 Aspirin (ASA) 81 mg DAILY ORAL 11/14/19 09:00 12/14/19 08:59 11/16/19 09:05 Atorvastatin Calcium (Lipitor) 80 mg BEDTIME ORAL 11/14/19 21:00 12/14/19 20:59 11/15/19 21:00 Carvedilol (Coreg) 6.25 mg EVERY 12 HOURS ORAL 11/16/19 21:00 12/16/19 20:59 Docusate Sodium (Colace) 100 mg TWICE A DAY ORAL 11/14/19 09:00 12/14/19 08:59 11/16/19 09:06 Folic Acid (Folate) 1 mg DAILY ORAL 11/14/19 09:00 12/14/19 08:59 11/16/19 09:05 Furosemide (Lasix) 20 mg DAILY ORAL 11/16/19 09:00 12/16/19 08:59 11/16/19 09:05 Gabapentin (Neurontin) 300 mg BID ORAL 11/13/19 15:00 12/13/19 14:59 11/16/19 09:05 Hydralazine HCl (Apresoline) 10 mg Q6HR PRN ORAL For High Blood Pressure 11/16/19 06:45 12/16/19 06:44 Hydroxychloroquine Sulfate (Plaquenil) 200 mg TWICE A DAY ORAL 11/13/19 18:00 12/13/19 17:59 11/16/19 09:05 Isosorbide Dinitrate (Isordil) 20 mg Q8HR ORAL 11/16/19 14:00 12/16/19 06:59 11/16/19 14:29 Lisinopril (ZestriL) 2.5 mg DAILY ORAL 11/16/19 11:30 12/16/19 11:29 11/16/19 12:02 Nitroglycerin (Ntg) 1 patch Q24H TDERMAL 11/13/19 21:00 12/13/19 20:59 11/15/19 21:02 Pantoprazole (Protonix) 40 mg Q12HR ORAL 11/13/19 21:00 12/13/19 14:44 11/16/19 09:05 Nikunj Jones MD Nov 16, 2019 16:46
--- NOTE | 2019-11-16 17:20 | NUR ---
HAND-OFF: Report given to MAEGAN Botello.
--- NOTE | 2019-11-16 19:20 | NUR ---
NURSE NOTES: received pt from Shawn ISSA., pt is resting on the bed awake and AOx3-4. pt is on 3L of NC and no SOB , and respiratory failure noted. Iv site intact, clean, and patent (left FA 20G). purewick is on,. pt states no pain at the same time. bed at the lowest position, alarmed, and locked. call light within reach. will continue to monitor pt with plan of care.
[2019-11-16 20:00] VITALS: BP 113/66
[2019-11-16] MEDS: Nitroglycerin Patch 0.4mg TDERMAL SCH (21:22)
[2019-11-16] MEDS: Carvedilol 6.25mg Tab ORAL SCH (21:23)
[2019-11-16] MEDS: Atorvastatin 80mg tab ORAL SCH (21:28)
[2019-11-17] VITALS: BP 110/65
--- NOTE | 2019-11-17 00:04 | NUR ---
NURSE NOTES: provided oral care, and repositioned pt. pt states no pain at this moment, toñito care done. call light within reach. bed at the lowest position. no SOB and no Respiratory distress noted at this moment.
[2019-11-17 04:00] VITALS: BP 122/70
[2019-11-17 04:42] LABS: BASOPHILS % (AUTO) 1.9 % (0.0-2.0); EOSINOPHILS % (AUTO) 2.6 % (0.0-3.0); HEMATOCRIT 35.1 % (37.0-47.0); HEMOGLOBIN 11.3 G/DL (12.0-16.0); LYMPHOCYTES % (AUTO) 18.9 % (20.0-45.0); MEAN CORPUSCULAR VOLUME 92 FL (80-99); MONOCYTES % (AUTO) 6.2 % (1.0-10.0); NEUTROPHILS % (AUTO) 70.4 % (45.0-75.0); PLATELET COUNT 283 K/UL (150-450); RED CELL DISTRIBUTION WIDTH 14.1 % (11.6-14.8); WHITE BLOOD COUNT 9.2 K/UL (4.8-10.8)
[2019-11-17 05:06] LABS: ALANINE AMINOTRANSFERASE 49 U/L (12-78); ALBUMIN 1.9 G/DL (3.4-5.0); ALBUMIN/GLOBULIN RATIO 0.4 (1.0-2.7); ALKALINE PHOSPHATASE 73 U/L (46-116); ANION GAP 13 mmol/L (5-15); ASPARTATE AMINO TRANSFERASE 23 U/L (15-37); BILIRUBIN,TOTAL 0.4 MG/DL (0.2-1.0); BLOOD UREA NITROGEN 52 mg/dL (7-18); CALCIUM 8.8 MG/DL (8.5-10.1); CARBON DIOXIDE 19 MMOL/L (21-32); CHLORIDE 106 MMOL/L (98-107); CREATININE 2.2 MG/DL (0.55-1.30); POTASSIUM 3.9 MMOL/L (3.5-5.1); SODIUM 138 MMOL/L (136-145)
--- NOTE | 2019-11-17 06:00 | NUR ---
NURSE NOTES: inserted new IV on left hand 22G, intact, clean, and patent. call light within reach.
--- NOTE | 2019-11-17 06:17 | NUR ---
NURSE NOTES: aware regarding elevated Troponin level from 1.317 to 1.531 and no new order received. noted and will keep monitor pt closely.
--- NOTE | 2019-11-17 07:00 | NUR ---
HAND-OFF: Report given to Shawn ISSA. pt is in stable condition.
[2019-11-17 08:00] VITALS: BP 118/71
[2019-11-17] MEDS: Docusate 100mg cap ORAL SCH ×2 (08:47→17:19)
[2019-11-17] MEDS: Lisinopril 2.5mg tab ORAL SCH (08:47)
[2019-11-17] MEDS: Carvedilol 6.25mg Tab ORAL SCH ×2 (08:47→20:13)
[2019-11-17] MEDS: Aspirin Baby 81mg ORAL SCH (08:48)
--- NOTE | 2019-11-17 10:17 | NUR ---
NURSE NOTES: Dr. Vora at nurse station, ordered bladder scan of patient. Bladder scan performed, scan revealed pt is retaining [address] Vora made aware and acknowledged, ordered mcghee insertion. Also made Dr. Vora aware that per patient, Dr. Jones informed her that they may be discharged to day. Dr. Vora acknowledged and instructed if a discharge order is seen, to have Dr. Jones contact him before discharge, per Dr. Vora concerned of renal function. Noted. Will continue to monitor patient.
--- NOTE | 2019-11-17 10:18 | Nephrology Progress Note ---
Assessment/Plan Problem List: (1) Renal failure (ARF), acute on chronic (2) Urinary retention Assessment: 750 cc as of 11/17 (3) NSTEMI (non-ST elevated myocardial infarction) (4) UTI (urinary tract infection) (5) Ovarian cancer Assessment: by history (6) Cardiomyopathy Assessment Renal failure : Acute vs Chronic, associate: HyperKalemia UTI / Proteinuria / Leukocytosis Elevated Troponin and LFTs elevated troponin History of ovarian CA. Plan mcghee Adjust BP meds- afterload reduction PRN BP meds Urine studies Per orders low dose lasix 2D echo 30% EjFx ISSA kidney Negative for hydronephrosis Subjective ROS Limited/Unobtainable: No Constitutional: Reports: malaise Objective Objective Last 24 Hour Vital Signs Date Time Temp Pulse Resp B/P (MAP) Pulse Ox O2 Delivery O2 Flow Rate FiO2 11/17/19 08:55 96 Nasal Cannula 2.0 28 11/17/19 08:47 70 118/71 11/17/19 08:47 118/71 11/17/19 08:00 Nasal Cannula 3.0 11/17/19 08:00 97.9 70 18 118/71 (87) 100 11/17/19 05:44 122/70 11/17/19 04:00 97.4 67 17 122/70 (87) 100 11/17/19 04:00 68 11/17/19 04:00 Nasal Cannula 3.0 11/17/19 00:00 Nasal Cannula 3.0 11/17/19 00:00 97.0 66 19 110/65 (80) 100 11/16/19 23:53 64 11/16/19 22:00 109/57 11/16/19 21:23 65 113/66 11/16/19 21:22 113/66 11/16/19 20:24 97 Nasal Cannula 2.0 28 11/16/19 20:00 Nasal Cannula 3.0 11/16/19 20:00 96.6 64 18 113/66 (82) 100 11/16/19 19:55 64 11/16/19 16:00 64 11/16/19 16:00 Nasal Cannula 2.0 11/16/19 16:00 97.7 62 20 117/72 (87) 100 11/16/19 14:29 117/72 11/16/19 12:02 114/75 11/16/19 12:00 Nasal Cannula 2.0 11/16/19 12:00 64 11/16/19 11:55 97.7 67 20 102/71 (81) 99 Intake and Output 11/16/19 11/17/19 19:00 07:00 Intake Total 400 ml 250 ml Output Total 300 ml 400 ml Balance 100 ml -150 ml Intake Oral 400 ml 250 ml Output Urine Total 300 ml 400 ml # Voids 2 Current Medications Medications (Trade) Dose Ordered Sig/Ronn Route PRN Reason Start Time Stop Time Status Last Admin Dose Admin Acetaminophen (Tylenol) 650 mg Q6H PRN ORAL Mild Pain/Temp > 100.5 11/15/19 18:00 12/15/19 17:59 11/15/19 18:48 Albuterol Sulfate (Proventil) 2.5 mg Q4H PRN HHN Shortness of Breath 11/14/19 19:00 11/19/19 18:59 11/14/19 19:24 Allopurinol (allopurinoL) 300 mg DAILY ORAL 11/16/19 09:00 12/16/19 08:59 11/17/19 08:47 Aspirin (ASA) 81 mg DAILY ORAL 11/14/19 09:00 12/14/19 08:59 11/17/19 08:48 Atorvastatin Calcium (Lipitor) 80 mg BEDTIME ORAL 11/14/19 21:00 12/14/19 20:59 11/16/19 21:28 Carvedilol (Coreg) 6.25 mg EVERY 12 HOURS ORAL 11/16/19 21:00 12/16/19 20:59 11/17/19 08:47 Docusate Sodium (Colace) 100 mg TWICE A DAY ORAL 11/14/19 09:00 12/14/19 08:59 11/17/19 08:47 Folic Acid (Folate) 1 mg DAILY ORAL 11/14/19 09:00 12/14/19 08:59 11/17/19 08:47 Furosemide (Lasix) 20 mg DAILY ORAL 11/16/19 09:00 12/16/19 08:59 11/17/19 08:47 Gabapentin (Neurontin) 300 mg BID ORAL 11/13/19 15:00 12/13/19 14:59 11/17/19 08:47 Hydralazine HCl (Apresoline) 10 mg Q6HR PRN ORAL For High Blood Pressure 11/16/19 06:45 12/16/19 06:44 Hydroxychloroquine Sulfate (Plaquenil) 200 mg TWICE A DAY ORAL 11/13/19 18:00 12/13/19 17:59 11/17/19 08:47 Isosorbide Dinitrate (Isordil) 20 mg Q8HR ORAL 11/16/19 14:00 12/16/19 06:59 11/17/19 05:44 Lisinopril (ZestriL) 2.5 mg DAILY ORAL 11/16/19 11:30 12/16/19 11:29 11/17/19 08:47 Nitroglycerin (Ntg) 1 patch Q24H TDERMAL 11/13/19 21:00 12/13/19 20:59 11/16/19 21:22 Pantoprazole (Protonix) 40 mg Q12HR ORAL 11/13/19 21:00 12/13/19 14:44 11/17/19 08:47 Laboratory Tests 11/17/19 03:50: White Blood Count 9.2, Red Blood Count 3.80L, Hemoglobin 11.3L, Hematocrit 35.1L , Mean Corpuscular Volume 92, Mean Corpuscular Hemoglobin 29.9, Mean Corpuscular Hemoglobin Concent 32.3, Red Cell Distribution Width 14.1, Platelet Count 283, Mean Platelet Volume 6.7, Neutrophils (%) (Auto) 70.4, Lymphocytes (% ) (Auto) 18.9L, Monocytes (%) (Auto) 6.2, Eosinophils (%) (Auto) 2.6, Basophils (%) (Auto) 1.9, Sodium Level 138, Potassium Level 3.9, Chloride Level 106, Carbon Dioxide Level 19L, Anion Gap 13, Blood Urea Nitrogen 52H, Creatinine 2.2H , Estimat Glomerular Filtration Rate , Glucose Level 108H, Uric Acid 10.3H, Calcium Level 8.8, Phosphorus Level 4.0, Magnesium Level 2.2, Total Bilirubin 0.4, Aspartate Amino Transf (AST/SGOT) 23, Alanine Aminotransferase (ALT/SGPT) 49, Alkaline Phosphatase 73, Troponin I 1.531H, C-Reactive Protein, Quantitative 17.4H, Pro-B-Type Natriuretic Peptide [id number], Total Protein 7.1, Albumin 1.9L, Globulin 5.2, Albumin/Globulin Ratio 0.4L Height (Feet): 5 Height (Inches): 6.00 Weight (Pounds): 165 General Appearance: no apparent distress Respiratory/Chest: decreased breath sounds Abdomen: distended Nazario Vora MD Nov 17, 2019 10:18
--- NOTE | 2019-11-17 10:31 | Hematology/Onc Progress Note ---
Assessment/Plan Assessment/Plan ASSESSMENT: # Newly diagnosed Ovarian cancer -- supposed to see Dr. Maier, has been diagnosed at [facility], size of tumor "FOOTBALL Sized" --> staging at this time unknown --> needs surgical staging in the near future --> [id number] pending # Shortness of breath, secondary to congestive heart failure, rule out an additional infectious cause. --> as per humanities department chair --> breathing treatments and diuresis as needed --> may need cath --> nc+ # Renal insufficiency. --> on ivf as needed # Troponin, Abnormal cardiac enzymes. --> elevated --> trend as needed, cath as needed # History of coronary artery disease with apparently prior documented angioplasties. # Systemic hypertension. # Hyperlipidemia. # Degenerative joint disease. The timing of this note does not necessarily reflect the time of the patient was seen. Greatly appreciate consultation. Subjective Allergies: Coded Allergies: No Known Allergies (Unverified , 11/13/19) Subjective 11/15: remains on nc, no major changes overnight, dw daughter who I have seen before, no bleeding 11/17: sdu, awake and alert, labs reviewed, elevated trop, nc 3l Objective Objective Current Medications Medications (Trade) Dose Ordered Sig/Ronn Route PRN Reason Start Time Stop Time Status Last Admin Dose Admin Acetaminophen (Tylenol) 650 mg Q6H PRN ORAL Mild Pain/Temp > 100.5 11/15/19 18:00 12/15/19 17:59 11/17/19 10:26 Albuterol Sulfate (Proventil) 2.5 mg Q4H PRN HHN Shortness of Breath 11/14/19 19:00 11/19/19 18:59 11/14/19 19:24 Allopurinol (allopurinoL) 300 mg DAILY ORAL 11/16/19 09:00 12/16/19 08:59 11/17/19 08:47 Aspirin (ASA) 81 mg DAILY ORAL 11/14/19 09:00 12/14/19 08:59 11/17/19 08:48 Atorvastatin Calcium (Lipitor) 80 mg BEDTIME ORAL 11/14/19 21:00 12/14/19 20:59 11/16/19 21:28 Carvedilol (Coreg) 6.25 mg EVERY 12 HOURS ORAL 11/16/19 21:00 12/16/19 20:59 11/17/19 08:47 Docusate Sodium (Colace) 100 mg TWICE A DAY ORAL 11/14/19 09:00 12/14/19 08:59 11/17/19 08:47 Folic Acid (Folate) 1 mg DAILY ORAL 11/14/19 09:00 12/14/19 08:59 11/17/19 08:47 Furosemide (Lasix) 20 mg DAILY ORAL 11/16/19 09:00 12/16/19 08:59 11/17/19 08:47 Gabapentin (Neurontin) 300 mg BID ORAL 11/13/19 15:00 12/13/19 14:59 11/17/19 08:47 Hydralazine HCl (Apresoline) 10 mg Q6HR PRN ORAL For High Blood Pressure 11/16/19 06:45 12/16/19 06:44 Hydroxychloroquine Sulfate (Plaquenil) 200 mg TWICE A DAY ORAL 11/13/19 18:00 12/13/19 17:59 11/17/19 08:47 Isosorbide Dinitrate (Isordil) 20 mg Q8HR ORAL 11/16/19 14:00 12/16/19 06:59 11/17/19 05:44 Lisinopril (ZestriL) 2.5 mg DAILY ORAL 11/16/19 11:30 12/16/19 11:29 11/17/19 08:47 Nitroglycerin (Ntg) 1 patch Q24H TDERMAL 11/13/19 21:00 12/13/19 20:59 11/16/19 21:22 Pantoprazole (Protonix) 40 mg Q12HR ORAL 11/13/19 21:00 12/13/19 14:44 11/17/19 08:47 Last 24 Hour Vital Signs Date Time Temp Pulse Resp B/P (MAP) Pulse Ox O2 Delivery O2 Flow Rate FiO2 11/17/19 08:55 96 Nasal Cannula 2.0 28 11/17/19 08:47 70 118/71 11/17/19 08:47 118/71 11/17/19 08:00 Nasal Cannula 3.0 11/17/19 08:00 97.9 70 18 118/71 (87) 100 11/17/19 05:44 122/70 11/17/19 04:00 97.4 67 17 122/70 (87) 100 11/17/19 04:00 68 11/17/19 04:00 Nasal Cannula 3.0 11/17/19 00:00 Nasal Cannula 3.0 11/17/19 00:00 97.0 66 19 110/65 (80) 100 11/16/19 23:53 64 11/16/19 22:00 109/57 11/16/19 21:23 65 113/66 11/16/19 21:22 113/66 11/16/19 20:24 97 Nasal Cannula 2.0 28 11/16/19 20:00 Nasal Cannula 3.0 11/16/19 20:00 96.6 64 18 113/66 (82) 100 11/16/19 19:55 64 11/16/19 16:00 64 11/16/19 16:00 Nasal Cannula 2.0 11/16/19 16:00 97.7 62 20 117/72 (87) 100 11/16/19 14:29 117/72 11/16/19 12:02 114/75 11/16/19 12:00 Nasal Cannula 2.0 11/16/19 12:00 64 11/16/19 11:55 97.7 67 20 102/71 (81) 99 11/16/19 09:05 75 109/77 11/16/19 08:00 71 11/16/19 08:00 Nasal Cannula 2.0 11/16/19 08:00 97.9 68 20 110/77 (88) 98 11/16/19 07:04 111/58 11/16/19 07:00 99 Nasal Cannula 2.0 28 11/16/19 04:00 Nasal Cannula 2.0 11/16/19 04:00 98.1 74 24 111/58 (75) 98 11/16/19 04:00 73 11/16/19 00:25 117/74 11/16/19 00:00 84 11/16/19 00:00 Nasal Cannula 2.0 11/16/19 00:00 98.2 82 24 117/74 (88) 98 11/16/19 00:00 117/74 11/15/19 21:02 120/80 11/15/19 21:00 90 120/80 11/15/19 20:00 98.6 90 26 120/80 (93) 98 11/15/19 20:00 86 11/15/19 20:00 Nasal Cannula 2.0 11/15/19 20:00 2.0 11/15/19 19:07 97 Nasal Cannula 2.0 28 11/15/19 17:18 122/74 11/15/19 16:00 80 11/15/19 16:00 Nasal Cannula 2.0 11/15/19 16:00 2.0 11/15/19 16:00 98.2 86 19 122/74 (90) 98 11/15/19 12:15 104/64 11/15/19 12:00 Nasal Cannula 2.0 11/15/19 12:00 98.1 84 21 104/64 (77) 98 11/15/19 12:00 2.0 11/15/19 11:29 112/70 11/15/19 11:26 77 Intake and Output 11/16/19 11/17/19 19:00 07:00 Intake Total 400 ml 250 ml Output Total 300 ml 400 ml Balance 100 ml -150 ml Intake Oral 400 ml 250 ml Output Urine Total 300 ml 400 ml # Voids 2 Labs Test 11/14/19 11:55 11/14/19 20:20 11/15/19 03:40 11/15/19 03:50 Troponin I 1.263 ng/mL (0.000-0.056) 1.580 ng/mL (0.000-0.056) 1.448 ng/mL (0.000-0.056) CA 125 Antigen 41.0 U/mL (0.0-38.1) Urine Eosinophils None seen (NONE SEEN) Sodium Level 138 MMOL/L (136-145) Potassium Level 4.0 MMOL/L (3.5-5.1) Chloride Level 106 MMOL/L (98-107) Carbon Dioxide Level 21 MMOL/L (21-32) Anion Gap 11 mmol/L (5-15) Blood Urea Nitrogen 36 mg/dL (7-18) Creatinine 1.8 MG/DL (0.55-1.30) Estimat Glomerular Filtration Rate mL/min (>60) Glucose Level 123 MG/DL (74-106) Lactic Acid Level 1.30 mmol/L (0.4-2.0) Uric Acid 11.1 MG/DL (2.6-7.2) Calcium Level 8.2 MG/DL (8.5-10.1) Phosphorus Level 4.3 MG/DL (2.5-4.9) Magnesium Level 2.3 MG/DL (1.8-2.4) Total Bilirubin 0.9 MG/DL (0.2-1.0) Aspartate Amino Transf (AST/SGOT) 35 U/L (15-37) Alanine Aminotransferase (ALT/SGPT) 82 U/L (12-78) Alkaline Phosphatase 73 U/L (46-116) Pro-B-Type Natriuretic Peptide 87428 pg/mL (0-125) Total Protein 6.5 G/DL (6.4-8.2) Albumin 1.9 G/DL (3.4-5.0) Globulin 4.6 g/dL Albumin/Globulin Ratio 0.4 (1.0-2.7) Test 11/16/19 05:00 11/16/19 07:55 11/17/19 03:50 Urine Eosinophils None seen (NONE SEEN) Sodium Level 141 MMOL/L (136-145) 138 MMOL/L (136-145) Potassium Level 4.2 MMOL/L (3.5-5.1) 3.9 MMOL/L (3.5-5.1) Chloride Level 108 MMOL/L (98-107) 106 MMOL/L (98-107) Carbon Dioxide Level 20 MMOL/L (21-32) 19 MMOL/L (21-32) Anion Gap 13 mmol/L (5-15) 13 mmol/L (5-15) Blood Urea Nitrogen 39 mg/dL (7-18) 52 mg/dL (7-18) Creatinine 1.8 MG/DL (0.55-1.30) 2.2 MG/DL (0.55-1.30) Estimat Glomerular Filtration Rate mL/min (>60) mL/min (>60) Glucose Level 129 MG/DL (74-106) 108 MG/DL (74-106) Calcium Level 8.5 MG/DL (8.5-10.1) 8.8 MG/DL (8.5-10.1) Phosphorus Level 4.1 MG/DL (2.5-4.9) 4.0 MG/DL (2.5-4.9) Magnesium Level 2.4 MG/DL (1.8-2.4) 2.2 MG/DL (1.8-2.4) Total Bilirubin 0.5 MG/DL (0.2-1.0) 0.4 MG/DL (0.2-1.0) Aspartate Amino Transf (AST/SGOT) 31 U/L (15-37) 23 U/L (15-37) Alanine Aminotransferase (ALT/SGPT) 65 U/L (12-78) 49 U/L (12-78) Alkaline Phosphatase 75 U/L (46-116) 73 U/L (46-116) Troponin I 1.317 ng/mL (0.000-0.056) 1.531 ng/mL (0.000-0.056) C-Reactive Protein, Quantitative 17.8 mg/dL (0.00-0.90) 17.4 mg/dL (0.00-0.90) Pro-B-Type Natriuretic Peptide 13059 pg/mL (0-125) 61327 pg/mL (0-125) Total Protein 6.4 G/DL (6.4-8.2) 7.1 G/DL (6.4-8.2) Albumin 2.0 G/DL (3.4-5.0) 1.9 G/DL (3.4-5.0) Globulin 4.4 g/dL 5.2 g/dL Albumin/Globulin Ratio 0.5 (1.0-2.7) 0.4 (1.0-2.7) White Blood Count 9.2 K/UL (4.8-10.8) Red Blood Count 3.80 M/UL (4.20-5.40) Hemoglobin 11.3 G/DL (12.0-16.0) Hematocrit 35.1 % (37.0-47.0) Mean Corpuscular Volume 92 FL (80-99) Mean Corpuscular Hemoglobin 29.9 PG (27.0-31.0) Mean Corpuscular Hemoglobin Concent 32.3 G/DL (32.0-36.0) Red Cell Distribution Width 14.1 % (11.6-14.8) Platelet Count 283 K/UL (150-450) Mean Platelet Volume 6.7 FL (6.5-10.1) Neutrophils (%) (Auto) 70.4 % (45.0-75.0) Lymphocytes (%) (Auto) 18.9 % (20.0-45.0) Monocytes (%) (Auto) 6.2 % (1.0-10.0) Eosinophils (%) (Auto) 2.6 % (0.0-3.0) Basophils (%) (Auto) 1.9 % (0.0-2.0) Uric Acid 10.3 MG/DL (2.6-7.2) Height (Feet): 5 Height (Inches): 6.00 Weight (Pounds): 165 Objective PHYSICAL EXAMINATION: GENERAL: Shows to be an elderly female, in no respiratory distress. HEENT: Unremarkable. NECK: Supple. No jugular venous distention. LUNGS: Crackles noted on the right base. CARDIAC: Regular rate and rhythm. No heaves, thrills, or gallops noted. ABDOMEN: Soft and nontender. Positive bowel sounds. EXTREMITIES: There is no edema. NEUROLOGIC: She is awake and responsive. Elder Paredes MD Nov 17, 2019 10:31
[2019-11-17 12:00] VITALS: BP 114/71
--- NOTE | 2019-11-17 12:13 | Pulmonology Progress Note ---
Assessment/Plan Assessment/Plan Renal failure : Acute vs Chronic HyperKalemia; corrected UTI / Proteinuria / Leukocytosis; resolved Elevated Troponin and LFTs PLAN Seen by cardiology and nephrology Off BiPAP now Continue O2; check RA SaO2 DC planning for home today Subjective Interval Events: None new Constitutional: Reports: no symptoms HEENT: Repors: no symptoms Respiratory: Reports: no symptoms Cardiovascular: Reports: no symptoms Gastrointestinal/Abdominal: Reports: no symptoms Allergies: Coded Allergies: No Known Allergies (Unverified , 11/13/19) Objective Last 24 Hour Vital Signs Date Time Temp Pulse Resp B/P (MAP) Pulse Ox O2 Delivery O2 Flow Rate FiO2 11/17/19 12:00 Nasal Cannula 3.0 11/17/19 12:00 97.7 62 18 114/71 (85) 100 11/17/19 10:48 Nasal Cannula 3.0 11/17/19 08:55 96 Nasal Cannula 2.0 28 11/17/19 08:47 70 118/71 11/17/19 08:47 118/71 11/17/19 08:00 Nasal Cannula 3.0 11/17/19 08:00 68 11/17/19 08:00 97.9 70 18 118/71 (87) 100 11/17/19 05:44 122/70 11/17/19 04:00 97.4 67 17 122/70 (87) 100 11/17/19 04:00 68 11/17/19 04:00 Nasal Cannula 3.0 11/17/19 00:00 Nasal Cannula 3.0 11/17/19 00:00 97.0 66 19 110/65 (80) 100 11/16/19 23:53 64 11/16/19 22:00 109/57 11/16/19 21:23 65 113/66 11/16/19 21:22 113/66 11/16/19 20:24 97 Nasal Cannula 2.0 28 11/16/19 20:00 Nasal Cannula 3.0 11/16/19 20:00 96.6 64 18 113/66 (82) 100 11/16/19 19:55 64 11/16/19 16:00 64 11/16/19 16:00 Nasal Cannula 2.0 11/16/19 16:00 97.7 62 20 117/72 (87) 100 11/16/19 14:29 117/72 Intake and Output 11/16/19 11/17/19 19:00 07:00 Intake Total 400 ml 250 ml Output Total 300 ml 400 ml Balance 100 ml -150 ml Intake Oral 400 ml 250 ml Output Urine Total 300 ml 400 ml # Voids 2 General Appearance: no acute distress HEENT: normocephalic Respiratory/Chest: chest wall non-tender, lungs clear Cardiovascular: normal peripheral pulses, normal rate Laboratory Tests 11/17/19 03:50: White Blood Count 9.2, Red Blood Count 3.80L, Hemoglobin 11.3L, Hematocrit 35.1L , Mean Corpuscular Volume 92, Mean Corpuscular Hemoglobin 29.9, Mean Corpuscular Hemoglobin Concent 32.3, Red Cell Distribution Width 14.1, Platelet Count 283, Mean Platelet Volume 6.7, Neutrophils (%) (Auto) 70.4, Lymphocytes (% ) (Auto) 18.9L, Monocytes (%) (Auto) 6.2, Eosinophils (%) (Auto) 2.6, Basophils (%) (Auto) 1.9, Sodium Level 138, Potassium Level 3.9, Chloride Level 106, Carbon Dioxide Level 19L, Anion Gap 13, Blood Urea Nitrogen 52H, Creatinine 2.2H , Estimat Glomerular Filtration Rate , Glucose Level 108H, Uric Acid 10.3H, Calcium Level 8.8, Phosphorus Level 4.0, Magnesium Level 2.2, Total Bilirubin 0.4, Aspartate Amino Transf (AST/SGOT) 23, Alanine Aminotransferase (ALT/SGPT) 49, Alkaline Phosphatase 73, Troponin I 1.531H, C-Reactive Protein, Quantitative 17.4H, Pro-B-Type Natriuretic Peptide 54115P, Total Protein 7.1, Albumin 1.9L, Globulin 5.2, Albumin/Globulin Ratio 0.4L Current Medications Medications (Trade) Dose Ordered Sig/Ronn Route PRN Reason Start Time Stop Time Status Last Admin Dose Admin Acetaminophen (Tylenol) 650 mg Q6H PRN ORAL Mild Pain/Temp > 100.5 11/15/19 18:00 12/15/19 17:59 11/17/19 10:26 Albuterol Sulfate (Proventil) 2.5 mg Q4H PRN HHN Shortness of Breath 11/14/19 19:00 11/19/19 18:59 11/14/19 19:24 Allopurinol (allopurinoL) 300 mg DAILY ORAL 11/16/19 09:00 12/16/19 08:59 11/17/19 08:47 Aspirin (ASA) 81 mg DAILY ORAL 11/14/19 09:00 12/14/19 08:59 11/17/19 08:48 Atorvastatin Calcium (Lipitor) 80 mg BEDTIME ORAL 11/14/19 21:00 12/14/19 20:59 11/16/19 21:28 Carvedilol (Coreg) 6.25 mg EVERY 12 HOURS ORAL 11/16/19 21:00 12/16/19 20:59 11/17/19 08:47 Docusate Sodium (Colace) 100 mg TWICE A DAY ORAL 11/14/19 09:00 12/14/19 08:59 11/17/19 08:47 Folic Acid (Folate) 1 mg DAILY ORAL 11/14/19 09:00 12/14/19 08:59 11/17/19 08:47 Furosemide (Lasix) 20 mg DAILY ORAL 11/16/19 09:00 12/16/19 08:59 11/17/19 08:47 Gabapentin (Neurontin) 300 mg BID ORAL 11/13/19 15:00 12/13/19 14:59 11/17/19 08:47 Hydralazine HCl (Apresoline) 10 mg Q6HR PRN ORAL For High Blood Pressure 11/16/19 06:45 12/16/19 06:44 Hydroxychloroquine Sulfate (Plaquenil) 200 mg TWICE A DAY ORAL 11/13/19 18:00 12/13/19 17:59 11/17/19 08:47 Isosorbide Dinitrate (Isordil) 20 mg Q8HR ORAL 11/16/19 14:00 12/16/19 06:59 11/17/19 05:44 Lisinopril (ZestriL) 2.5 mg DAILY ORAL 11/16/19 11:30 12/16/19 11:29 11/17/19 08:47 Nitroglycerin (Ntg) 1 patch Q24H TDERMAL 11/13/19 21:00 12/13/19 20:59 11/16/19 21:22 Pantoprazole (Protonix) 40 mg Q12HR ORAL 11/13/19 21:00 12/13/19 14:44 11/17/19 08:47 Nikunj Jones MD Nov 17, 2019 12:13
[2019-11-17] MEDS ORDERED: COREG6.25 MG ORAL (12:16)
[2019-11-17] MEDS ORDERED: LIPITOR80 MG ORAL (12:16)
[2019-11-17] MEDS ORDERED: FOLIC ACID1 MG ORAL (12:16)
[2019-11-17] MEDS ORDERED: HYDROXYCHLOROQ200 M1 ORAL (12:16)
[2019-11-17] MEDS ORDERED: NEURONTIN300 MG ORAL (12:16)
[2019-11-17] MEDS ORDERED: ALLOPURINOL100 M1 ORAL (12:16)
[2019-11-17] MEDS ORDERED: ASPIRIN81 MG ORAL (12:16)
[2019-11-17] MEDS ORDERED: FUROSEMIDE20 M1 ORAL (12:16)
--- NOTE | 2019-11-17 13:18 | NUR ---
NURSE NOTES: Patient is noted with Discharge to home order. Dr. Jones at nurse station, spoke with Dr. Jones regarding Dr. Vora's concerns and informed Dr. Jones to call Dr. Vora regarding patient care and concerns of renal function. Dr. Jones acknowledged and ordered to hold discharge order at this time. Order entered, noted, and carried out. Will continue to monitor patient.
[2019-11-17] MEDS ORDERED: Tubing IV Secondary IV ONE (13:26)
[2019-11-17] MEDS ORDERED: D5NS 1000ml IV ONE (13:26)
--- NOTE | 2019-11-17 13:51 | Cardiology Progress Note ---
Assessment/Plan Assessment/Plan 1. Reported history of cardiomyopathy. 2. Shortness of breath, secondary to congestive heart failure, rule out an additional infectious cause. 3. Renal insufficiency. 4. Abnormal cardiac enzymes / NSTEMI 5. History of coronary artery disease with apparently prior documented angioplasties. 6. Systemic hypertension. 7. Hyperlipidemia. 8. Degenerative joint disease. 9. Pulm htn 10. 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 [facility] , saw her 1 week [employer] cr increased no cp now ekg compared to older ekg had t iversion in lead v6 before nwo in v5 on this admission will repat ekg tele reviwed seem sinus Subjective Cardiovascular: Denies: chest pain, palpitations, syncope Respiratory: Denies: shortness of breath - but had sod earlier Gastrointestinal/Abdominal: Denies: abdominal pain Genitourinary: Denies: burning Objective Last 24 Hour Vital Signs Date Time Temp Pulse Resp B/P (MAP) Pulse Ox O2 Delivery O2 Flow Rate FiO2 11/17/19 12:00 Nasal Cannula 3.0 11/17/19 12:00 59 11/17/19 12:00 97.7 62 18 114/71 (85) 100 11/17/19 10:48 Nasal Cannula 3.0 11/17/19 08:55 96 Nasal Cannula 2.0 28 11/17/19 08:47 70 118/71 11/17/19 08:47 118/71 11/17/19 08:00 Nasal Cannula 3.0 11/17/19 08:00 68 11/17/19 08:00 97.9 70 18 118/71 (87) 100 11/17/19 05:44 122/70 11/17/19 04:00 97.4 67 17 122/70 (87) 100 11/17/19 04:00 68 11/17/19 04:00 Nasal Cannula 3.0 11/17/19 00:00 Nasal Cannula 3.0 11/17/19 00:00 97.0 66 19 110/65 (80) 100 11/16/19 23:53 64 11/16/19 22:00 109/57 11/16/19 21:23 65 113/66 11/16/19 21:22 113/66 11/16/19 20:24 97 Nasal Cannula 2.0 28 11/16/19 20:00 Nasal Cannula 3.0 11/16/19 20:00 96.6 64 18 113/66 (82) 100 11/16/19 19:55 64 11/16/19 16:00 64 11/16/19 16:00 Nasal Cannula 2.0 11/16/19 16:00 97.7 62 20 117/72 (87) 100 11/16/19 14:29 117/72 General Appearance: no apparent distress Neck: supple Cardiovascular: normal rate Respiratory/Chest: crackles/rales Abdomen: normal bowel sounds, non tender, soft Extremities: no swelling Intake and Output 11/16/19 11/17/19 19:00 07:00 Intake Total 400 ml 250 ml Output Total 300 ml 400 ml Balance 100 ml -150 ml Intake Oral 400 ml 250 ml Output Urine Total 300 ml 400 ml # Voids 2 Laboratory Tests Test 11/17/19 03:50 White Blood Count 9.2 K/UL (4.8-10.8) Red Blood Count 3.80 M/UL (4.20-5.40) L Hemoglobin 11.3 G/DL (12.0-16.0) L Hematocrit 35.1 % (37.0-47.0) L Mean Corpuscular Volume 92 FL (80-99) Mean Corpuscular Hemoglobin 29.9 PG (27.0-31.0) Mean Corpuscular Hemoglobin Concent 32.3 G/DL (32.0-36.0) Red Cell Distribution Width 14.1 % (11.6-14.8) Platelet Count 283 K/UL (150-450) Mean Platelet Volume 6.7 FL (6.5-10.1) Neutrophils (%) (Auto) 70.4 % (45.0-75.0) Lymphocytes (%) (Auto) 18.9 % (20.0-45.0) L Monocytes (%) (Auto) 6.2 % (1.0-10.0) Eosinophils (%) (Auto) 2.6 % (0.0-3.0) Basophils (%) (Auto) 1.9 % (0.0-2.0) Sodium Level 138 MMOL/L (136-145) Potassium Level 3.9 MMOL/L (3.5-5.1) Chloride Level 106 MMOL/L (98-107) Carbon Dioxide Level 19 MMOL/L (21-32) L Anion Gap 13 mmol/L (5-15) Blood Urea Nitrogen 52 mg/dL (7-18) H Creatinine 2.2 MG/DL (0.55-1.30) H Estimat Glomerular Filtration Rate mL/min (>60) Glucose Level 108 MG/DL (74-106) H Uric Acid 10.3 MG/DL (2.6-7.2) H Calcium Level 8.8 MG/DL (8.5-10.1) Phosphorus Level 4.0 MG/DL (2.5-4.9) Magnesium Level 2.2 MG/DL (1.8-2.4) Total Bilirubin 0.4 MG/DL (0.2-1.0) Aspartate Amino Transf (AST/SGOT) 23 U/L (15-37) Alanine Aminotransferase (ALT/SGPT) 49 U/L (12-78) Alkaline Phosphatase 73 U/L (46-116) Troponin I 1.531 ng/mL (0.000-0.056) C-Reactive Protein, Quantitative 17.4 mg/dL (0.00-0.90) H Pro-B-Type Natriuretic Peptide 99612 pg/mL (0-125) H Total Protein 7.1 G/DL (6.4-8.2) Albumin 1.9 G/DL (3.4-5.0) L Globulin 5.2 g/dL Albumin/Globulin Ratio 0.4 (1.0-2.7) L Rasheed Shaikh MD Nov 17, 2019 13:51
--- NOTE | 2019-11-17 14:12 | NUR ---
NURSE NOTES: Dr. Shaikh at nurse station. Seen result of 12-lead EKG order. Dr. Batista acknowledged and gave no new orders at this time. Pt denies chest pain, no s/sx of SOB, breathing is even and unlabored. Will continue to monitor patient.
[2019-11-17 16:00] VITALS: BP 107/70
--- NOTE | 2019-11-17 19:30 | NUR ---
NURSE NOTES: Report received from MAEGAN Escobar. Observed pt lying in the bed, sleeping, calm and comfortable. SR on live source operator. On 2L NC, no sob noted. F/C intact, draining well to the gravity. IV on R FA 20G, SL, intact. L H 22G, SL, asymptomatic. Bed in the lowest position. Side rails up x2. Call light within reach. Will continue to monitor.
[2019-11-17 20:00] VITALS: BP 119/74
[2019-11-17] MEDS: Atorvastatin 80mg tab ORAL SCH (20:12)
[2019-11-17] MEDS: Nitroglycerin Patch 0.4mg TDERMAL SCH (20:13)
[2019-11-18] VITALS: BP 105/70
--- NOTE | 2019-11-18 01:00 | NUR ---
NURSE NOTES: pt sleeping in the bed, calm and comfortable. Denies any pain at this time. SR on potline monitor. VS WNL. Pt wants the bed bath later. Will continue to monitor.
[2019-11-18 04:00] VITALS: BP 110/72
--- NOTE | 2019-11-18 07:30 | NUR ---
HAND-OFF: Report given to MAEGAN Yates.
--- NOTE | 2019-11-18 07:31 | NUR ---
NURSE NOTES: Received patient in bed. Asleep, easy to arouse. Verbal, able to make needs known. On nasal cannula at 2LPM. No respiratory distress at this time. Call light within reach. Casarez cath inplace. Bed alarm in lowest position, bed alarm on. Will continue plan of care.
[2019-11-18 08:00] VITALS: BP 110/76
--- NOTE | 2019-11-18 08:38 | NUR ---
NURSE NOTES: Dr. Paredes at bedside.
[2019-11-18] MEDS: Docusate 100mg cap ORAL SCH ×3 (09:00→18:17)
[2019-11-18] MEDS: Carvedilol 6.25mg Tab ORAL SCH ×2 (09:14→21:14)
[2019-11-18] MEDS: Aspirin Baby 81mg ORAL SCH (09:14)
[2019-11-18] MEDS: Lisinopril 2.5mg tab ORAL SCH (09:15)
--- NOTE | 2019-11-18 09:30 | Hematology/Onc Progress Note ---
Assessment/Plan Assessment/Plan ASSESSMENT: # Newly diagnosed Ovarian cancer -- supposed to see Dr. Maier, has been diagnosed at [facility], size of tumor "FOOTBALL Sized" --> staging at this time unknown --> needs surgical staging in the near future --> CA125 43 # Shortness of breath, secondary to congestive heart failure, rule out an additional infectious cause. --> as per sausage grinder --> breathing treatments and diuresis as needed --> may need cath --> nc+ # Renal insufficiency. --> on ivf as needed # Troponin, Abnormal cardiac enzymes. --> elevated --> trend as needed, cath as needed # History of coronary artery disease with apparently prior documented angioplasties. --> per cards # Systemic hypertension. # Hyperlipidemia. # Degenerative joint disease. The timing of this note does not necessarily reflect the time of the patient was seen. Greatly appreciate consultation. Subjective Constitutional: Denies: no symptoms, chills, fever, malaise, weakness, other HEENT: Denies: no symptoms, eye pain, blurred vision, tearing, double vision, ear pain, ear discharge, nose pain, nose congestion, throat pain, throat swelling, mouth pain, mouth swelling, other Cardiovascular: Denies: no symptoms, chest pain, edema, irregular heart rate, lightheadedness, palpitations, syncope, other Respiratory: Denies: no symptoms, cough, shortness of breath, SOB with excertion, SOB at rest, sputum, wheezing, other Gastrointestinal/Abdominal: Denies: no symptoms, abdomen distended, abdominal pain, black stools, tarry stools, blood in stool, constipated, diarrhea, difficulty swallowing, nausea, poor appetite, poor fluid intake, rectal bleeding , vomiting, other Endocrine: Denies: no symptoms, excessive sweating, flushing, intolerance to cold, intolerance to heat, increased hunger, increased thirst, increased urine, unexplained weight gain, unexplained weight loss, other Allergies: Coded Allergies: No Known Allergies (Unverified , 11/13/19) Subjective 11/15: remains on nc, no major changes overnight, dw daughter who I have seen before, no bleeding 11/17: sdu, awake and alert, labs reviewed, elevated trop, nc 3l 11/18; no major changes, labs reviewed, no bleeding, cr 2.2 Objective Objective Current Medications Medications (Trade) Dose Ordered Sig/Ronn Route PRN Reason Start Time Stop Time Status Last Admin Dose Admin Acetaminophen (Tylenol) 650 mg Q6H PRN ORAL Mild Pain/Temp > 100.5 11/15/19 18:00 12/15/19 17:59 11/17/19 10:26 Albuterol Sulfate (Proventil) 2.5 mg Q4H PRN HHN Shortness of Breath 11/14/19 19:00 11/19/19 18:59 11/14/19 19:24 Allopurinol (allopurinoL) 300 mg DAILY ORAL 11/16/19 09:00 12/16/19 08:59 11/18/19 09:15 Aspirin (ASA) 81 mg DAILY ORAL 11/14/19 09:00 12/14/19 08:59 11/18/19 09:14 Atorvastatin Calcium (Lipitor) 80 mg BEDTIME ORAL 11/14/19 21:00 12/14/19 20:59 11/17/19 20:12 Carvedilol (Coreg) 6.25 mg EVERY 12 HOURS ORAL 11/16/19 21:00 12/16/19 20:59 11/18/19 09:14 Docusate Sodium (Colace) 100 mg TWICE A DAY ORAL 11/14/19 09:00 12/14/19 08:59 11/17/19 17:19 Folic Acid (Folate) 1 mg DAILY ORAL 11/14/19 09:00 12/14/19 08:59 11/18/19 09:15 Furosemide (Lasix) 20 mg DAILY ORAL 11/16/19 09:00 12/16/19 08:59 11/18/19 09:14 Gabapentin (Neurontin) 300 mg BID ORAL 11/13/19 15:00 12/13/19 14:59 11/18/19 09:14 Hydralazine HCl (Apresoline) 10 mg Q6HR PRN ORAL For High Blood Pressure 11/16/19 06:45 12/16/19 06:44 Hydroxychloroquine Sulfate (Plaquenil) 200 mg TWICE A DAY ORAL 11/13/19 18:00 12/13/19 17:59 11/18/19 09:15 Isosorbide Dinitrate (Isordil) 20 mg Q8HR ORAL 11/16/19 14:00 12/16/19 06:59 11/18/19 06:02 Lisinopril (ZestriL) 2.5 mg DAILY ORAL 11/16/19 11:30 12/16/19 11:29 11/18/19 09:15 Nitroglycerin (Ntg) 1 patch Q24H TDERMAL 11/13/19 21:00 12/13/19 20:59 11/17/19 20:13 Pantoprazole (Protonix) 40 mg Q12HR ORAL 11/13/19 21:00 12/13/19 14:44 11/18/19 09:14 Last 24 Hour Vital Signs Date Time Temp Pulse Resp B/P (MAP) Pulse Ox O2 Delivery O2 Flow Rate FiO2 11/18/19 09:15 110/76 11/18/19 09:14 74 110/76 11/18/19 08:00 Nasal Cannula 2.0 11/18/19 08:00 97.9 74 20 110/76 (87) 95 11/18/19 07:51 74 11/18/19 06:02 128/86 11/18/19 04:00 Nasal Cannula 2.0 11/18/19 04:00 98.3 70 26 110/72 (85) 95 11/18/19 04:00 68 11/18/19 00:00 69 11/18/19 00:00 Nasal Cannula 2.0 11/18/19 00:00 98.3 70 24 105/70 (82) 96 11/17/19 22:00 105/67 11/17/19 20:13 66 119/73 11/17/19 20:13 119/73 11/17/19 20:00 69 11/17/19 20:00 Nasal Cannula 2.0 11/17/19 20:00 98.4 70 20 119/74 (89) 98 11/17/19 19:47 82 20 97 Nasal Cannula 2.0 28 11/17/19 19:47 97 Nasal Cannula 2.0 28 11/17/19 16:00 97.0 63 18 107/70 (82) 97 11/17/19 16:00 62 11/17/19 16:00 Nasal Cannula 3.0 11/17/19 13:50 108/70 11/17/19 12:00 Nasal Cannula 3.0 11/17/19 12:00 59 11/17/19 12:00 97.7 62 18 114/71 (85) 100 11/17/19 10:48 Nasal Cannula 3.0 11/17/19 08:55 96 Nasal Cannula 2.0 28 11/17/19 08:47 70 118/71 11/17/19 08:47 118/71 11/17/19 08:00 Nasal Cannula 3.0 11/17/19 08:00 68 11/17/19 08:00 97.9 70 18 118/71 (87) 100 11/17/19 05:44 122/70 11/17/19 04:00 97.4 67 17 122/70 (87) 100 11/17/19 04:00 68 11/17/19 04:00 Nasal Cannula 3.0 11/17/19 00:00 Nasal Cannula 3.0 11/17/19 00:00 97.0 66 19 110/65 (80) 100 11/16/19 23:53 64 11/16/19 22:00 109/57 11/16/19 21:23 65 113/66 11/16/19 21:22 113/66 11/16/19 20:24 97 Nasal Cannula 2.0 28 11/16/19 20:00 Nasal Cannula 3.0 11/16/19 20:00 96.6 64 18 113/66 (82) 100 11/16/19 19:55 64 11/16/19 16:00 64 11/16/19 16:00 Nasal Cannula 2.0 11/16/19 16:00 97.7 62 20 117/72 (87) 100 11/16/19 14:29 117/72 11/16/19 12:02 114/75 11/16/19 12:00 Nasal Cannula 2.0 11/16/19 12:00 64 11/16/19 11:55 97.7 67 20 102/71 (81) 99 Intake and Output 11/17/19 11/18/19 19:00 07:00 Intake Total 500 ml 240 ml Output Total 600 ml 300 ml Balance -100 ml -60 ml Intake Oral 500 ml 240 ml Output Urine Total 600 ml 300 ml # Bowel Movements 1 Labs Test 11/16/19 05:00 11/16/19 07:55 11/17/19 03:50 Urine Eosinophils None seen (NONE SEEN) Sodium Level 141 MMOL/L (136-145) 138 MMOL/L (136-145) Potassium Level 4.2 MMOL/L (3.5-5.1) 3.9 MMOL/L (3.5-5.1) Chloride Level 108 MMOL/L (98-107) 106 MMOL/L (98-107) Carbon Dioxide Level 20 MMOL/L (21-32) 19 MMOL/L (21-32) Anion Gap 13 mmol/L (5-15) 13 mmol/L (5-15) Blood Urea Nitrogen 39 mg/dL (7-18) 52 mg/dL (7-18) Creatinine 1.8 MG/DL (0.55-1.30) 2.2 MG/DL (0.55-1.30) Estimat Glomerular Filtration Rate mL/min (>60) mL/min (>60) Glucose Level 129 MG/DL (74-106) 108 MG/DL (74-106) Calcium Level 8.5 MG/DL (8.5-10.1) 8.8 MG/DL (8.5-10.1) Phosphorus Level 4.1 MG/DL (2.5-4.9) 4.0 MG/DL (2.5-4.9) Magnesium Level 2.4 MG/DL (1.8-2.4) 2.2 MG/DL (1.8-2.4) Total Bilirubin 0.5 MG/DL (0.2-1.0) 0.4 MG/DL (0.2-1.0) Aspartate Amino Transf (AST/SGOT) 31 U/L (15-37) 23 U/L (15-37) Alanine Aminotransferase (ALT/SGPT) 65 U/L (12-78) 49 U/L (12-78) Alkaline Phosphatase 75 U/L (46-116) 73 U/L (46-116) Troponin I 1.317 ng/mL (0.000-0.056) 1.531 ng/mL (0.000-0.056) C-Reactive Protein, Quantitative 17.8 mg/dL (0.00-0.90) 17.4 mg/dL (0.00-0.90) Pro-B-Type Natriuretic Peptide 58921 pg/mL (0-125) 15371 pg/mL (0-125) Total Protein 6.4 G/DL (6.4-8.2) 7.1 G/DL (6.4-8.2) Albumin 2.0 G/DL (3.4-5.0) 1.9 G/DL (3.4-5.0) Globulin 4.4 g/dL 5.2 g/dL Albumin/Globulin Ratio 0.5 (1.0-2.7) 0.4 (1.0-2.7) White Blood Count 9.2 K/UL (4.8-10.8) Red Blood Count 3.80 M/UL (4.20-5.40) Hemoglobin 11.3 G/DL (12.0-16.0) Hematocrit 35.1 % (37.0-47.0) Mean Corpuscular Volume 92 FL (80-99) Mean Corpuscular Hemoglobin 29.9 PG (27.0-31.0) Mean Corpuscular Hemoglobin Concent 32.3 G/DL (32.0-36.0) Red Cell Distribution Width 14.1 % (11.6-14.8) Platelet Count 283 K/UL (150-450) Mean Platelet Volume 6.7 FL (6.5-10.1) Neutrophils (%) (Auto) 70.4 % (45.0-75.0) Lymphocytes (%) (Auto) 18.9 % (20.0-45.0) Monocytes (%) (Auto) 6.2 % (1.0-10.0) Eosinophils (%) (Auto) 2.6 % (0.0-3.0) Basophils (%) (Auto) 1.9 % (0.0-2.0) Uric Acid 10.3 MG/DL (2.6-7.2) Height (Feet): 5 Height (Inches): 6.00 Weight (Pounds): 165 Objective PHYSICAL EXAMINATION: GENERAL: Shows to be an elderly female, in no respiratory distress. HEENT: Unremarkable. NECK: Supple. No jugular venous distention. LUNGS: Crackles noted on the right base. CARDIAC: Regular rate and rhythm. No heaves, thrills, or gallops noted. ABDOMEN: Soft and nontender. Positive bowel sounds. EXTREMITIES: There is no edema. NEUROLOGIC: She is awake and responsive. Elder Paredes MD Nov 18, 2019 09:30
--- NOTE | 2019-11-18 10:17 | Pulmonology Progress Note ---
Assessment/Plan Assessment/Plan Renal failure : Acute vs Chronic HyperKalemia; corrected UTI / Proteinuria / Leukocytosis; resolved Elevated Troponin and LFTs PLAN Seen by cardiology and nephrology Off BiPAP now Continue O2; check RA SaO2 DC held due to urinary retention Subjective Interval Events: Remains SOB; urinary catheter placed for retention Constitutional: Reports: no symptoms HEENT: Repors: no symptoms Respiratory: Reports: no symptoms Cardiovascular: Reports: no symptoms Gastrointestinal/Abdominal: Reports: no symptoms Allergies: Coded Allergies: No Known Allergies (Unverified , 11/13/19) Objective Last 24 Hour Vital Signs Date Time Temp Pulse Resp B/P (MAP) Pulse Ox O2 Delivery O2 Flow Rate FiO2 11/18/19 09:15 110/76 11/18/19 09:14 74 110/76 11/18/19 09:03 98 Nasal Cannula 2.0 28 11/18/19 09:03 78 20 98 Nasal Cannula 2.0 28 11/18/19 08:00 Nasal Cannula 2.0 11/18/19 08:00 97.9 74 20 110/76 (87) 95 11/18/19 07:51 74 11/18/19 06:02 128/86 11/18/19 04:00 Nasal Cannula 2.0 11/18/19 04:00 98.3 70 26 110/72 (85) 95 11/18/19 04:00 68 11/18/19 00:00 69 11/18/19 00:00 Nasal Cannula 2.0 11/18/19 00:00 98.3 70 24 105/70 (82) 96 11/17/19 22:00 105/67 11/17/19 20:13 66 119/73 11/17/19 20:13 119/73 11/17/19 20:00 69 11/17/19 20:00 Nasal Cannula 2.0 11/17/19 20:00 98.4 70 20 119/74 (89) 98 11/17/19 19:47 82 20 97 Nasal Cannula 2.0 28 11/17/19 19:47 97 Nasal Cannula 2.0 28 11/17/19 16:00 97.0 63 18 107/70 (82) 97 11/17/19 16:00 62 11/17/19 16:00 Nasal Cannula 3.0 11/17/19 13:50 108/70 11/17/19 12:00 Nasal Cannula 3.0 11/17/19 12:00 59 11/17/19 12:00 97.7 62 18 114/71 (85) 100 11/17/19 10:48 Nasal Cannula 3.0 Intake and Output 11/17/19 11/18/19 19:00 07:00 Intake Total 500 ml 240 ml Output Total 600 ml 300 ml Balance -100 ml -60 ml Intake Oral 500 ml 240 ml Output Urine Total 600 ml 300 ml # Bowel Movements 1 General Appearance: no acute distress HEENT: normocephalic Respiratory/Chest: chest wall non-tender, decreased breath sounds Cardiovascular: normal peripheral pulses, normal rate Abdomen: normal bowel sounds Current Medications Medications (Trade) Dose Ordered Sig/Ronn Route PRN Reason Start Time Stop Time Status Last Admin Dose Admin Acetaminophen (Tylenol) 650 mg Q6H PRN ORAL Mild Pain/Temp > 100.5 11/15/19 18:00 12/15/19 17:59 11/17/19 10:26 Albuterol Sulfate (Proventil) 2.5 mg Q4H PRN HHN Shortness of Breath 11/14/19 19:00 11/19/19 18:59 11/14/19 19:24 Allopurinol (allopurinoL) 300 mg DAILY ORAL 11/16/19 09:00 12/16/19 08:59 11/18/19 09:15 Aspirin (ASA) 81 mg DAILY ORAL 11/14/19 09:00 12/14/19 08:59 11/18/19 09:14 Atorvastatin Calcium (Lipitor) 80 mg BEDTIME ORAL 11/14/19 21:00 12/14/19 20:59 11/17/19 20:12 Carvedilol (Coreg) 6.25 mg EVERY 12 HOURS ORAL 11/16/19 21:00 12/16/19 20:59 11/18/19 09:14 Docusate Sodium (Colace) 100 mg TWICE A DAY ORAL 11/14/19 09:00 12/14/19 08:59 11/17/19 17:19 Folic Acid (Folate) 1 mg DAILY ORAL 11/14/19 09:00 12/14/19 08:59 11/18/19 09:15 Furosemide (Lasix) 20 mg DAILY ORAL 11/16/19 09:00 12/16/19 08:59 11/18/19 09:14 Gabapentin (Neurontin) 300 mg BID ORAL 11/13/19 15:00 12/13/19 14:59 11/18/19 09:14 Hydralazine HCl (Apresoline) 10 mg Q6HR PRN ORAL For High Blood Pressure 11/16/19 06:45 12/16/19 06:44 Hydroxychloroquine Sulfate (Plaquenil) 200 mg TWICE A DAY ORAL 11/13/19 18:00 12/13/19 17:59 11/18/19 09:15 Isosorbide Dinitrate (Isordil) 20 mg Q8HR ORAL 11/16/19 14:00 12/16/19 06:59 11/18/19 06:02 Lisinopril (ZestriL) 2.5 mg DAILY ORAL 11/16/19 11:30 12/16/19 11:29 11/18/19 09:15 Nitroglycerin (Ntg) 1 patch Q24H TDERMAL 11/13/19 21:00 12/13/19 20:59 11/17/19 20:13 Pantoprazole (Protonix) 40 mg Q12HR ORAL 11/13/19 21:00 12/13/19 14:44 11/18/19 09:14 Nikunj Jones MD Nov 18, 2019 10:17
--- NOTE | 2019-11-18 11:29 | NUR ---
NURSE NOTES: Core Sticker at bedside.
[2019-11-18 12:00] VITALS: BP 119/56
[2019-11-18 12:12] LABS: ANION GAP 8 mmol/L (5-15); BLOOD UREA NITROGEN 53 mg/dL (7-18); CALCIUM 8.3 MG/DL (8.5-10.1); CARBON DIOXIDE 20 MMOL/L (21-32); CHLORIDE 106 MMOL/L (98-107); CREATININE 1.8 MG/DL (0.55-1.30); POTASSIUM 3.5 MMOL/L (3.5-5.1); SODIUM 134 MMOL/L (136-145)
[2019-11-18 12:16] LABS: ALANINE AMINOTRANSFERASE 34 U/L (12-78); ALBUMIN 1.7 G/DL (3.4-5.0); ALBUMIN/GLOBULIN RATIO 0.4 (1.0-2.7); ALKALINE PHOSPHATASE 70 U/L (46-116); ASPARTATE AMINO TRANSFERASE 20 U/L (15-37); BILIRUBIN,TOTAL 0.3 MG/DL (0.2-1.0); PHOSPHORUS 3.8 MG/DL (2.5-4.9)
--- NOTE | 2019-11-18 13:38 | Nephrology Progress Note ---
Assessment/Plan Problem List: (1) Renal failure (ARF), acute on chronic (2) Urinary retention Assessment: 750 cc as of 11/17 (3) NSTEMI (non-ST elevated myocardial infarction) (4) UTI (urinary tract infection) (5) Ovarian cancer Assessment: by history (6) Cardiomyopathy Assessment Renal failure : Acute vs Chronic, associate: HyperKalemia UTI / Proteinuria / Leukocytosis Elevated Troponin and LFTs elevated troponin History of ovarian CA. Plan add flomax- mcghee Adjust BP meds- afterload reduction PRN BP meds Urine studies Per orders low dose lasix 2D echo 30% EjFx ISSA kidney Negative for hydronephrosis Subjective ROS Limited/Unobtainable: No Constitutional: Reports: malaise Objective Objective Last 24 Hour Vital Signs Date Time Temp Pulse Resp B/P (MAP) Pulse Ox O2 Delivery O2 Flow Rate FiO2 11/18/19 12:00 Nasal Cannula 2.0 11/18/19 12:00 98.2 70 21 119/56 (77) 96 11/18/19 11:30 70 11/18/19 09:15 110/76 11/18/19 09:14 74 110/76 11/18/19 09:03 98 Nasal Cannula 2.0 28 11/18/19 09:03 78 20 98 Nasal Cannula 2.0 28 11/18/19 08:00 Nasal Cannula 2.0 11/18/19 08:00 97.9 74 20 110/76 (87) 95 11/18/19 07:51 74 11/18/19 06:02 128/86 11/18/19 04:00 Nasal Cannula 2.0 11/18/19 04:00 98.3 70 26 110/72 (85) 95 11/18/19 04:00 68 11/18/19 00:00 69 11/18/19 00:00 Nasal Cannula 2.0 11/18/19 00:00 98.3 70 24 105/70 (82) 96 11/17/19 22:00 105/67 11/17/19 20:13 66 119/73 11/17/19 20:13 119/73 11/17/19 20:00 69 11/17/19 20:00 Nasal Cannula 2.0 11/17/19 20:00 98.4 70 20 119/74 (89) 98 11/17/19 19:47 82 20 97 Nasal Cannula 2.0 28 11/17/19 19:47 97 Nasal Cannula 2.0 28 11/17/19 16:00 97.0 63 18 107/70 (82) 97 11/17/19 16:00 62 11/17/19 16:00 Nasal Cannula 3.0 11/17/19 13:50 108/70 Intake and Output 11/17/19 11/18/19 19:00 07:00 Intake Total 500 ml 240 ml Output Total 600 ml 300 ml Balance -100 ml -60 ml Intake Oral 500 ml 240 ml Output Urine Total 600 ml 300 ml # Bowel Movements 1 Laboratory Tests 11/18/19 11:30: Sodium Level 134L, Potassium Level 3.5, Chloride Level 106, Carbon Dioxide Level 20L, Anion Gap 8, Blood Urea Nitrogen 53H, Creatinine 1.8H, Estimat Glomerular Filtration Rate , Glucose Level 127H, Uric Acid 9.4H, Calcium Level 8.3L, Phosphorus Level 3.8, Magnesium Level 2.0, Total Bilirubin 0.3, Aspartate Amino Transf (AST/SGOT) 20, Alanine Aminotransferase (ALT/SGPT) 34, Alkaline Phosphatase 70, Total Protein 6.5, Albumin 1.7L, Globulin 4.8, Albumin/Globulin Ratio 0.4L Height (Feet): 5 Height (Inches): 6.00 Weight (Pounds): 165 General Appearance: no apparent distress Cardiovascular: normal rate Respiratory/Chest: decreased breath sounds Abdomen: soft Genitourinary/Rectal: other - mcghee + Objective no change Nazario Vora MD Nov 18, 2019 13:38
[2019-11-18] MEDS: Tamsulosin 0.4mg cap ORAL SCH (14:21)
--- NOTE | 2019-11-18 14:45 | NUR ---
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
[2019-11-18] MEDS ORDERED: Varibar Honey 250ml MC PRN (15:00)
[2019-11-18] MEDS ORDERED: Varibar Pudding 230ml MC PRN (15:00)
[2019-11-18] MEDS ORDERED: Varibar Nectar 240ml MC PRN (15:00)
--- NOTE | 2019-11-18 15:00 | NUR ---
NURSE NOTES: Patient's daughter at bedside. She requested to have updates regarding patient's condition, about her cancer. Will call Dr. Paredes regarding this matter.
--- NOTE | 2019-11-18 15:05 | NUR ---
NURSE NOTES: Informed Dr. Paredes that patient's daughter wants to talk to her. said that he will call her.
[2019-11-18 16:00] VITALS: BP 114/71
--- NOTE | 2019-11-18 19:40 | NUR ---
HAND-OFF: Report given to Michelle Copeland RN.
--- NOTE | 2019-11-18 19:50 | NUR ---
NURSE NOTES: Received pt from MAEGAN Headley. Pt awake, alert, and talkative. Bed in lowest position. Call light within reach. Will continue to monitor.
[2019-11-18 20:00] VITALS: BP 119/72
--- NOTE | 2019-11-18 21:10 | Cardiology Progress Note ---
Assessment/Plan Assessment/Plan 1. Reported history of cardiomyopathy. 2. Shortness of breath, secondary to congestive heart failure, rule out an additional infectious cause. 3. Renal insufficiency. 4. Abnormal cardiac enzymes / NSTEMI 5. History of coronary artery disease with apparently prior documented angioplasties. 6. Systemic hypertension. 7. Hyperlipidemia. 8. Degenerative joint disease. 9. Pulm htn 10. 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 no cp now ekg compared to older ekg had t iversion in lead v6 before now in v5 on this admission tele reviwed seem sinus cr improved will repeat trop in am has no cp at this time Subjective Cardiovascular: Denies: chest pain, lightheadedness, palpitations Respiratory: Denies: SOB with excertion Gastrointestinal/Abdominal: Denies: abdominal pain Genitourinary: Denies: burning Objective Last 24 Hour Vital Signs Date Time Temp Pulse Resp B/P (MAP) Pulse Ox O2 Delivery O2 Flow Rate FiO2 11/18/19 20:00 98.0 73 24 119/72 (88) 97 11/18/19 19:33 99 Nasal Cannula 2.0 28 11/18/19 19:33 77 18 99 Nasal Cannula 2.0 28 11/18/19 16:00 97.2 73 20 114/71 (85) 97 11/18/19 16:00 Nasal Cannula 2.0 11/18/19 15:30 70 11/18/19 14:21 119/56 11/18/19 12:00 Nasal Cannula 2.0 11/18/19 12:00 98.2 70 21 119/56 (77) 96 11/18/19 11:30 70 11/18/19 09:15 110/76 11/18/19 09:14 74 110/76 11/18/19 09:03 98 Nasal Cannula 2.0 28 11/18/19 09:03 78 20 98 Nasal Cannula 2.0 28 11/18/19 08:00 Nasal Cannula 2.0 11/18/19 08:00 97.9 74 20 110/76 (87) 95 11/18/19 07:51 74 11/18/19 06:02 128/86 11/18/19 04:00 Nasal Cannula 2.0 11/18/19 04:00 98.3 70 26 110/72 (85) 95 11/18/19 04:00 68 11/18/19 00:00 69 11/18/19 00:00 Nasal Cannula 2.0 11/18/19 00:00 98.3 70 24 105/70 (82) 96 11/17/19 22:00 105/67 General Appearance: no apparent distress, alert Neck: no JVD Cardiovascular: normal rate Respiratory/Chest: lungs clear Abdomen: normal bowel sounds, non tender, soft Extremities: no swelling Intake and Output 11/17/19 11/18/19 19:00 07:00 Intake Total 500 ml 240 ml Output Total 600 ml 300 ml Balance -100 ml -60 ml Intake Oral 500 ml 240 ml Output Urine Total 600 ml 300 ml # Bowel Movements 1 Laboratory Tests Test 11/18/19 11:30 Sodium Level 134 MMOL/L (136-145) L Potassium Level 3.5 MMOL/L (3.5-5.1) Chloride Level 106 MMOL/L (98-107) Carbon Dioxide Level 20 MMOL/L (21-32) L Anion Gap 8 mmol/L (5-15) Blood Urea Nitrogen 53 mg/dL (7-18) H Creatinine 1.8 MG/DL (0.55-1.30) H Estimat Glomerular Filtration Rate mL/min (>60) Glucose Level 127 MG/DL (74-106) H Uric Acid 9.4 MG/DL (2.6-7.2) H Calcium Level 8.3 MG/DL (8.5-10.1) L Phosphorus Level 3.8 MG/DL (2.5-4.9) Magnesium Level 2.0 MG/DL (1.8-2.4) Total Bilirubin 0.3 MG/DL (0.2-1.0) Aspartate Amino Transf (AST/SGOT) 20 U/L (15-37) Alanine Aminotransferase (ALT/SGPT) 34 U/L (12-78) Alkaline Phosphatase 70 U/L (46-116) Total Protein 6.5 G/DL (6.4-8.2) Albumin 1.7 G/DL (3.4-5.0) L Globulin 4.8 g/dL Albumin/Globulin Ratio 0.4 (1.0-2.7) L Rasheed Shaikh MD Nov 18, 2019 21:10
[2019-11-18] MEDS: Atorvastatin 80mg tab ORAL SCH (21:15)
[2019-11-18] MEDS: Nitroglycerin Patch 0.4mg TDERMAL SCH (21:16)
[2019-11-19] VITALS: BP 109/69
[2019-11-19 04:00] VITALS: BP 112/71
--- NOTE | 2019-11-19 07:45 | NUR ---
NURSE NOTES: Received bedside report from Michelle ISSA. Pt. in bed, having breakfast at present. A/O x 4. No sign of distress. On 2LPM via NC. Denies pain at present. IV at right FA #20g. and left hand #22g. SL. F/C in placed patent/intact draining yellow colored urine. Bed in low position, locked. Call light within reach. Will cont. to monitor.
--- NOTE | 2019-11-19 07:45 | NUR ---
HAND-OFF: Report given to MAEGAN Gonzalez. Endorsed pts request for MD to speak with family. Pt stable.
[2019-11-19 08:00] VITALS: BP 110/73
--- NOTE | 2019-11-19 09:50 | NUR ---
PT EVALUATION NOTE Patient seen for initial evaluation. Patient presents with generalized weakness and SOB which impairs patient's ability to perform mobility tasks safely. Patient requires SBA for bed mobility. Patient with poor sitting balance at the EOB due to c/o weakness and fatigue, loses her balance posteriorly. OOB activities deferred due to weakness and fatigue. Patient will benefit from skilled inpatient PT intervention to address strength, balance and safety for increased level of independence with functional mobility. Recommend discharge to SNF for further rehab once medically cleared by MD as patient lives alone. Patient has her own FWW at home. Addendum: 11/19/19 at 1309 by PABLO URIARTE PT Amended: Links added.
[2019-11-19 10:16] LABS: ANION GAP 16 mmol/L (5-15); BLOOD UREA NITROGEN 57 mg/dL (7-18); CALCIUM 8.5 MG/DL (8.5-10.1); CARBON DIOXIDE 15 MMOL/L (21-32); CHLORIDE 108 MMOL/L (98-107); CREATININE 1.8 MG/DL (0.55-1.30); SODIUM 139 MMOL/L (136-145)
[2019-11-19 10:20] LABS: ALANINE AMINOTRANSFERASE 35 U/L (12-78); ALBUMIN 1.8 G/DL (3.4-5.0); ALBUMIN/GLOBULIN RATIO 0.4 (1.0-2.7); ALKALINE PHOSPHATASE 70 U/L (46-116); ASPARTATE AMINO TRANSFERASE 30 U/L (15-37); BILIRUBIN,TOTAL 0.3 MG/DL (0.2-1.0); PHOSPHORUS 4.1 MG/DL (2.5-4.9)
[2019-11-19] MEDS: Docusate 100mg cap ORAL SCH ×2 (10:26→18:26)
[2019-11-19] MEDS: Lisinopril 2.5mg tab ORAL SCH (10:27)
[2019-11-19] MEDS: Carvedilol 6.25mg Tab ORAL SCH ×2 (10:29→21:05)
[2019-11-19] MEDS: Tamsulosin 0.4mg cap ORAL SCH (10:29)
[2019-11-19] MEDS: Aspirin Baby 81mg ORAL SCH (10:31)
--- NOTE | 2019-11-19 10:45 | Pulmonology Progress Note ---
Assessment/Plan Assessment/Plan Renal failure : Acute vs Chronic HyperKalemia; corrected UTI / Proteinuria / Leukocytosis; resolved Elevated Troponin and LFTs Urinary retention PLAN Seen by cardiology and nephrology Off BiPAP now Continue O2; check RA SaO2 DC held due to urinary retention Seen by urology Will start Flomax Subjective Interval Events: None new Constitutional: Reports: no symptoms HEENT: Repors: no symptoms Respiratory: Reports: no symptoms Cardiovascular: Reports: no symptoms Gastrointestinal/Abdominal: Reports: no symptoms Genitourinary: Reports: no symptoms Allergies: Coded Allergies: No Known Allergies (Unverified , 11/13/19) Objective Last 24 Hour Vital Signs Date Time Temp Pulse Resp B/P (MAP) Pulse Ox O2 Delivery O2 Flow Rate FiO2 11/19/19 10:29 81 110/73 11/19/19 10:27 110/73 11/19/19 05:34 112/71 11/19/19 04:00 Nasal Cannula 2.0 11/19/19 04:00 98.0 73 20 112/71 (85) 96 11/19/19 04:00 74 11/19/19 00:00 Nasal Cannula 2.0 11/19/19 00:00 98.0 74 20 109/69 (82) 97 11/19/19 00:00 77 11/18/19 21:16 119/72 11/18/19 21:14 73 119/72 11/18/19 21:14 119/72 11/18/19 20:00 98.0 73 24 119/72 (88) 97 11/18/19 20:00 78 11/18/19 20:00 Nasal Cannula 2.0 11/18/19 19:33 99 Nasal Cannula 2.0 28 11/18/19 19:33 77 18 99 Nasal Cannula 2.0 28 11/18/19 16:00 97.2 73 20 114/71 (85) 97 11/18/19 16:00 Nasal Cannula 2.0 11/18/19 15:30 70 11/18/19 14:21 119/56 11/18/19 12:00 Nasal Cannula 2.0 11/18/19 12:00 98.2 70 21 119/56 (77) 96 11/18/19 11:30 70 Intake and Output 11/18/19 11/19/19 19:00 07:00 Intake Total 240 ml Output Total 400 ml 400 ml Balance -160 ml -400 ml Intake Oral 240 ml Output Urine Total 400 ml 400 ml General Appearance: no acute distress HEENT: normocephalic Respiratory/Chest: chest wall non-tender, decreased breath sounds Cardiovascular: normal peripheral pulses, normal rate Abdomen: normal bowel sounds Laboratory Tests 11/18/19 11:30: Sodium Level 134L, Potassium Level 3.5, Chloride Level 106, Carbon Dioxide Level 20L, Anion Gap 8, Blood Urea Nitrogen 53H, Creatinine 1.8H, Estimat Glomerular Filtration Rate , Glucose Level 127H, Uric Acid 9.4H, Calcium Level 8.3L, Phosphorus Level 3.8, Magnesium Level 2.0, Total Bilirubin 0.3, Aspartate Amino Transf (AST/SGOT) 20, Alanine Aminotransferase (ALT/SGPT) 34, Alkaline Phosphatase 70, Total Protein 6.5, Albumin 1.7L, Globulin 4.8, Albumin/Globulin Ratio 0.4L 11/19/19 04:30: Sodium Level 139, Potassium Level 4.0, Chloride Level 108H, Carbon Dioxide Level 15L, Anion Gap 16H, Blood Urea Nitrogen 57H, Creatinine 1.8H, Estimat Glomerular Filtration Rate , Glucose Level 110H, Calcium Level 8.5, Phosphorus Level 4.1, Magnesium Level 2.2, Total Bilirubin 0.3, Aspartate Amino Transf (AST /SGOT) 30, Alanine Aminotransferase (ALT/SGPT) 35, Alkaline Phosphatase 70, Total Protein 6.7, Albumin 1.8L, Globulin 4.9, Albumin/Globulin Ratio 0.4L, Troponin I 1.136H Current Medications Medications (Trade) Dose Ordered Sig/Ronn Route PRN Reason Start Time Stop Time Status Last Admin Dose Admin Acetaminophen (Tylenol) 650 mg Q6H PRN ORAL Mild Pain/Temp > 100.5 11/15/19 18:00 12/15/19 17:59 11/17/19 10:26 Albuterol Sulfate (Proventil) 2.5 mg Q4H PRN HHN Shortness of Breath 11/14/19 19:00 11/19/19 18:59 11/14/19 19:24 Allopurinol (allopurinoL) 300 mg DAILY ORAL 11/16/19 09:00 12/16/19 08:59 11/19/19 10:30 Aspirin (ASA) 81 mg DAILY ORAL 11/14/19 09:00 12/14/19 08:59 11/19/19 10:31 Atorvastatin Calcium (Lipitor) 80 mg BEDTIME ORAL 11/14/19 21:00 12/14/19 20:59 11/18/19 21:15 Carvedilol (Coreg) 6.25 mg EVERY 12 HOURS ORAL 11/16/19 21:00 12/16/19 20:59 11/19/19 10:29 Docusate Sodium (Colace) 100 mg TWICE A DAY ORAL 11/14/19 09:00 12/14/19 08:59 11/19/19 10:26 Folic Acid (Folate) 1 mg DAILY ORAL 11/14/19 09:00 12/14/19 08:59 11/19/19 10:32 Furosemide (Lasix) 20 mg DAILY ORAL 11/16/19 09:00 12/16/19 08:59 11/19/19 10:30 Gabapentin (Neurontin) 300 mg BID ORAL 11/13/19 15:00 12/13/19 14:59 11/19/19 10:30 Hydralazine HCl (Apresoline) 10 mg Q6HR PRN ORAL For High Blood Pressure 11/16/19 06:45 12/16/19 06:44 Hydroxychloroquine Sulfate (Plaquenil) 200 mg TWICE A DAY ORAL 11/13/19 18:00 12/13/19 17:59 11/19/19 10:29 Isosorbide Dinitrate (Isordil) 20 mg Q8HR ORAL 11/16/19 14:00 12/16/19 06:59 11/19/19 05:34 Lisinopril (ZestriL) 2.5 mg DAILY ORAL 11/16/19 11:30 12/16/19 11:29 11/19/19 10:27 Nitroglycerin (Ntg) 1 patch Q24H TDERMAL 11/13/19 21:00 12/13/19 20:59 11/18/19 21:16 Pantoprazole (Protonix) 40 mg Q12HR ORAL 11/13/19 21:00 12/13/19 14:44 11/19/19 10:29 Tamsulosin HCl (Flomax) 0.4 mg DAILY ORAL 11/18/19 13:45 2/26/20 13:44 11/19/19 10:29 Nikunj Jones MD Nov 19, 2019 10:45
[2019-11-19] MEDS ORDERED: FLOMAX0.4 MG ORAL (10:46)
[2019-11-19 12:00] VITALS: BP 132/75
--- NOTE | 2019-11-19 12:11 | Nephrology Progress Note ---
Assessment/Plan Problem List: (1) Renal failure (ARF), acute on chronic (2) Urinary retention Assessment: 750 cc as of 11/17 (3) NSTEMI (non-ST elevated myocardial infarction) (4) UTI (urinary tract infection) (5) Ovarian cancer Assessment: by history (6) Cardiomyopathy Assessment Renal failure : Acute vs Chronic, associate: HyperKalemia UTI / Proteinuria / Leukocytosis Elevated Troponin and LFTs elevated troponin History of ovarian CA. Plan add flomax- mcghee Adjust BP meds- afterload reduction PRN BP meds Urine studies Per orders low dose lasix 2D echo 30% EjFx ISSA kidney Negative for hydronephrosis Subjective ROS Limited/Unobtainable: No Constitutional: Reports: malaise, weakness Objective Objective Last 24 Hour Vital Signs Date Time Temp Pulse Resp B/P (MAP) Pulse Ox O2 Delivery O2 Flow Rate FiO2 11/19/19 10:29 81 110/73 11/19/19 10:27 110/73 11/19/19 05:34 112/71 11/19/19 04:00 Nasal Cannula 2.0 11/19/19 04:00 98.0 73 20 112/71 (85) 96 11/19/19 04:00 74 11/19/19 00:00 Nasal Cannula 2.0 11/19/19 00:00 98.0 74 20 109/69 (82) 97 11/19/19 00:00 77 11/18/19 21:16 119/72 11/18/19 21:14 73 119/72 11/18/19 21:14 119/72 11/18/19 20:00 98.0 73 24 119/72 (88) 97 11/18/19 20:00 78 11/18/19 20:00 Nasal Cannula 2.0 11/18/19 19:33 99 Nasal Cannula 2.0 28 11/18/19 19:33 77 18 99 Nasal Cannula 2.0 28 11/18/19 16:00 97.2 73 20 114/71 (85) 97 11/18/19 16:00 Nasal Cannula 2.0 11/18/19 15:30 70 11/18/19 14:21 119/56 Intake and Output 11/18/19 11/19/19 19:00 07:00 Intake Total 240 ml Output Total 400 ml 400 ml Balance -160 ml -400 ml Intake Oral 240 ml Output Urine Total 400 ml 400 ml Laboratory Tests 11/19/19 04:30: Sodium Level 139, Potassium Level 4.0, Chloride Level 108H, Carbon Dioxide Level 15L, Anion Gap 16H, Blood Urea Nitrogen 57H, Creatinine 1.8H, Estimat Glomerular Filtration Rate , Glucose Level 110H, Calcium Level 8.5, Phosphorus Level 4.1, Magnesium Level 2.2, Total Bilirubin 0.3, Aspartate Amino Transf (AST /SGOT) 30, Alanine Aminotransferase (ALT/SGPT) 35, Alkaline Phosphatase 70, Troponin I 1.136H, Total Protein 6.7, Albumin 1.8L, Globulin 4.9, Albumin/ Globulin Ratio 0.4L Height (Feet): 5 Height (Inches): 6.00 Weight (Pounds): 162 General Appearance: no apparent distress Cardiovascular: normal rate Respiratory/Chest: decreased breath sounds Abdomen: distended Objective no change Nazario Vora MD Nov 19, 2019 12:11
--- NOTE | 2019-11-19 14:09 | NUR ---
*-* INSURANCE *-* UPDATED CLINICALS HAVE BEEN FAXED TO: [employer] P: [phone] F: [phone] REF# [id number]
--- NOTE | 2019-11-19 15:00 | Consultation ---
DATE OF CONSULTATION: 11/19/2019 CONSULTING PHYSICIAN: Edwardo Hale M.D. REASON FOR CONSULTATION: Renal failure due to acute retention. HISTORY OF PRESENT ILLNESS: The patient is a 74-year-old lady with chief complaint of dyspnea and respiratory distress, came in and was admitted to the hospital, found to have acute renal failure due to urinary retention. She had a Casarez catheter placed and now she has an indwelling Casarez catheter. PAST HISTORY: Significant for congestive heart failure, high blood pressure, voiding dysfunction. MEDICATIONS: Have been reviewed. REVIEW OF SYMPTOMS: Have been reviewed. PHYSICAL EXAMINATION: VITAL SIGNS: She is afebrile. Vital signs are stable. LUNGS: Clear to auscultation. CARDIOVASCULAR: Regular rate and rhythm. ABDOMEN: Soft, nontender. Bladder is not distended. LABORATORY DATA: Reviewed showing white count of 9.2 and hematocrit of 35.1. Creatinine went down from 1.5 to 1.1 today. Renal ultrasound that was done on 11/13/2019 showed minimal hydronephrosis. No other upper tract pathology. ASSESSMENT AND PLAN: The patient had acute retention. Has a Casarez catheter. I recommend to keep the Casarez for at least 7 to 14 days. She should be started on Flomax and we will follow the patient with you. She probably will need outpatient cystoscopy or urodynamic study. Edwardo Hale M.D. DR: JEANNIE JOB#: [id number] CC:
--- NOTE | 2019-11-19 15:43 | NUR ---
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 97.9 HR 82 RR 21 B/P 132/75 NC 2L 98% BUN 57 CR 1.8 TROP 1.136 IS: LASIX PO NEURONTIN PO ALLOPURINOL PO ALB HHN STEP DOWN STATUS
[2019-11-19 16:00] VITALS: BP 124/67
--- NOTE | 2019-11-19 19:20 | NUR ---
NURSE NOTES: Received pt from ASHLEY Williamson. Pt awake, alert and OX3. Denies pain or discomfort. SR on diagnostic cardiac sonographer. No distress noted. VSS Afebrile. Bed in lowest position. Call light within reach. Will continue to monitor.
--- NOTE | 2019-11-19 19:41 | NUR ---
HAND-OFF: Report given to Shawn Bloom RN. Pt. remain stable.
--- NOTE | 2019-11-19 19:51 | Hematology/Onc Progress Note ---
Assessment/Plan Assessment/Plan ASSESSMENT: # Newly diagnosed Ovarian cancer -- supposed to see Dr. Maier, has been diagnosed at [facility], size of tumor "FOOTBALL Sized" --> staging at this time unknown --> needs surgical staging in the near future --> CA125 43 # Shortness of breath, secondary to congestive heart failure, rule out an additional infectious cause. --> as per wire weaver cloth --> breathing treatments and diuresis as needed --> may need cath --> nc+ # Renal insufficiency. --> on ivf as needed # Troponin, Abnormal cardiac enzymes. --> elevated --> trend as needed, cath as needed # History of coronary artery disease with apparently prior documented angioplasties. --> per cards # Systemic hypertension. # Hyperlipidemia. # Degenerative joint disease. The timing of this note does not necessarily reflect the time of the patient was seen. Greatly appreciate consultation. Subjective Allergies: Coded Allergies: No Known Allergies (Unverified , 11/13/19) Subjective 11/15: remains on nc, no major changes overnight, dw daughter who I have seen before, no bleeding 11/17: sdu, awake and alert, labs reviewed, elevated trop, nc 3l 11/18; no major changes, labs reviewed, no bleeding, cr 2.2 11/19: awake, no acute distress, nc 2l, afebrile, no sob Objective Objective Current Medications Medications (Trade) Dose Ordered Sig/Ronn Route PRN Reason Start Time Stop Time Status Last Admin Dose Admin Acetaminophen (Tylenol) 650 mg Q6H PRN ORAL Mild Pain/Temp > 100.5 11/15/19 18:00 12/15/19 17:59 11/17/19 10:26 Allopurinol (allopurinoL) 300 mg DAILY ORAL 11/16/19 09:00 12/16/19 08:59 11/19/19 10:30 Aspirin (ASA) 81 mg DAILY ORAL 11/14/19 09:00 12/14/19 08:59 11/19/19 10:31 Atorvastatin Calcium (Lipitor) 80 mg BEDTIME ORAL 11/14/19 21:00 12/14/19 20:59 11/18/19 21:15 Carvedilol (Coreg) 6.25 mg EVERY 12 HOURS ORAL 11/16/19 21:00 2/24/20 20:59 11/19/19 10:29 Docusate Sodium (Colace) 100 mg TWICE A DAY ORAL 11/14/19 09:00 12/14/19 08:59 11/19/19 18:26 Folic Acid (Folate) 1 mg DAILY ORAL 11/14/19 09:00 12/14/19 08:59 11/19/19 10:32 Furosemide (Lasix) 20 mg DAILY ORAL 11/16/19 09:00 12/16/19 08:59 11/19/19 10:30 Gabapentin (Neurontin) 300 mg BID ORAL 11/13/19 15:00 12/13/19 14:59 11/19/19 18:26 Hydralazine HCl (Apresoline) 10 mg Q6HR PRN ORAL For High Blood Pressure 11/16/19 06:45 12/16/19 06:44 Hydroxychloroquine Sulfate (Plaquenil) 200 mg TWICE A DAY ORAL 11/13/19 18:00 12/13/19 17:59 11/19/19 18:26 Isosorbide Dinitrate (Isordil) 20 mg Q8HR ORAL 11/16/19 14:00 12/16/19 06:59 11/19/19 05:34 Lisinopril (ZestriL) 2.5 mg DAILY ORAL 11/16/19 11:30 12/16/19 11:29 11/19/19 10:27 Nitroglycerin (Ntg) 1 patch Q24H TDERMAL 11/13/19 21:00 12/13/19 20:59 11/18/19 21:16 Pantoprazole (Protonix) 40 mg Q12HR ORAL 11/13/19 21:00 12/13/19 14:44 11/19/19 10:29 Tamsulosin HCl (Flomax) 0.4 mg DAILY ORAL 11/18/19 13:45 12/18/19 13:44 11/19/19 10:29 Last 24 Hour Vital Signs Date Time Temp Pulse Resp B/P (MAP) Pulse Ox O2 Delivery O2 Flow Rate FiO2 11/19/19 16:00 Nasal Cannula 2.0 11/19/19 16:00 98.1 78 22 124/67 (86) 97 11/19/19 15:28 76 11/19/19 14:00 132/75 11/19/19 12:00 Nasal Cannula 2.0 11/19/19 12:00 97.9 82 21 132/75 (94) 99 11/19/19 11:47 81 11/19/19 10:29 81 110/73 11/19/19 10:27 110/73 11/19/19 09:10 85 20 98 Nasal Cannula 2.0 28 11/19/19 09:08 99 Nasal Cannula 2.0 28 11/19/19 08:00 Nasal Cannula 2.0 11/19/19 08:00 97.9 81 22 110/73 (85) 97 11/19/19 07:44 78 11/19/19 05:34 112/71 11/19/19 04:00 Nasal Cannula 2.0 11/19/19 04:00 98.0 73 20 112/71 (85) 96 11/19/19 04:00 74 11/19/19 00:00 Nasal Cannula 2.0 11/19/19 00:00 98.0 74 20 109/69 (82) 97 11/19/19 00:00 77 11/18/19 21:16 119/72 11/18/19 21:14 73 119/72 11/18/19 21:14 119/72 11/18/19 20:00 98.0 73 24 119/72 (88) 97 11/18/19 20:00 78 11/18/19 20:00 Nasal Cannula 2.0 11/18/19 19:33 99 Nasal Cannula 2.0 28 11/18/19 19:33 77 18 99 Nasal Cannula 2.0 11/18/19 16:00 97.2 73 20 114/71 (85) 97 11/18/19 16:00 Nasal Cannula 2.0 11/18/19 15:30 70 11/18/19 14:21 119/56 11/18/19 12:00 Nasal Cannula 2.0 11/18/19 12:00 98.2 70 21 119/56 (77) 96 11/18/19 11:30 70 11/18/19 09:15 110/76 11/18/19 09:14 74 110/76 11/18/19 09:03 98 Nasal Cannula 2.0 11/18/19 09:03 78 20 98 Nasal Cannula 2.0 11/18/19 08:00 Nasal Cannula 2.0 11/18/19 08:00 97.9 74 20 110/76 (87) 95 11/18/19 07:51 74 11/18/19 06:02 128/86 11/18/19 04:00 Nasal Cannula 2.0 11/18/19 04:00 98.3 70 26 110/72 (85) 95 11/18/19 04:00 68 11/18/19 00:00 69 11/18/19 00:00 Nasal Cannula 2.0 11/18/19 00:00 98.3 70 24 105/70 (82) 96 11/17/19 22:00 105/67 11/17/19 20:13 66 119/73 11/17/19 20:13 119/73 11/17/19 20:00 69 11/17/19 20:00 Nasal Cannula 2.0 11/17/19 20:00 98.4 70 20 119/74 (89) 98 Intake and Output 11/18/19 11/19/19 19:00 07:00 Intake Total 240 ml Output Total 400 ml 400 ml Balance -160 ml -400 ml Intake Oral 240 ml Output Urine Total 400 ml 400 ml Labs Test 11/17/19 03:50 11/18/19 11:30 11/19/19 04:30 White Blood Count 9.2 K/UL (4.8-10.8) Red Blood Count 3.80 M/UL (4.20-5.40) Hemoglobin 11.3 G/DL (12.0-16.0) Hematocrit 35.1 % (37.0-47.0) Mean Corpuscular Volume 92 FL (80-99) Mean Corpuscular Hemoglobin 29.9 PG (27.0-31.0) Mean Corpuscular Hemoglobin Concent 32.3 G/DL (32.0-36.0) Red Cell Distribution Width 14.1 % (11.6-14.8) Platelet Count 283 K/UL (150-450) Mean Platelet Volume 6.7 FL (6.5-10.1) Neutrophils (%) (Auto) 70.4 % (45.0-75.0) Lymphocytes (%) (Auto) 18.9 % (20.0-45.0) Monocytes (%) (Auto) 6.2 % (1.0-10.0) Eosinophils (%) (Auto) 2.6 % (0.0-3.0) Basophils (%) (Auto) 1.9 % (0.0-2.0) Sodium Level 138 MMOL/L (136-145) 134 MMOL/L (136-145) 139 MMOL/L (136-145) Potassium Level 3.9 MMOL/L (3.5-5.1) 3.5 MMOL/L (3.5-5.1) 4.0 MMOL/L (3.5-5.1) Chloride Level 106 MMOL/L (98-107) 106 MMOL/L (98-107) 108 MMOL/L (98-107) Carbon Dioxide Level 19 MMOL/L (21-32) 20 MMOL/L (21-32) 15 MMOL/L (21-32) Anion Gap 13 mmol/L (5-15) 8 mmol/L (5-15) 16 mmol/L (5-15) Blood Urea Nitrogen 52 mg/dL (7-18) 53 mg/dL (7-18) 57 mg/dL (7-18) Creatinine 2.2 MG/DL (0.55-1.30) 1.8 MG/DL (0.55-1.30) 1.8 MG/DL (0.55-1.30) Estimat Glomerular Filtration Rate mL/min (>60) mL/min (>60) mL/min (>60) Glucose Level 108 MG/DL (74-106) 127 MG/DL (74-106) 110 MG/DL (74-106) Uric Acid 10.3 MG/DL (2.6-7.2) 9.4 MG/DL (2.6-7.2) Calcium Level 8.8 MG/DL (8.5-10.1) 8.3 MG/DL (8.5-10.1) 8.5 MG/DL (8.5-10.1) Phosphorus Level 4.0 MG/DL (2.5-4.9) 3.8 MG/DL (2.5-4.9) 4.1 MG/DL (2.5-4.9) Magnesium Level 2.2 MG/DL (1.8-2.4) 2.0 MG/DL (1.8-2.4) 2.2 MG/DL (1.8-2.4) Total Bilirubin 0.4 MG/DL (0.2-1.0) 0.3 MG/DL (0.2-1.0) 0.3 MG/DL (0.2-1.0) Aspartate Amino Transf (AST/SGOT) 23 U/L (15-37) 20 U/L (15-37) 30 U/L (15-37) Alanine Aminotransferase (ALT/SGPT) 49 U/L (12-78) 34 U/L (12-78) 35 U/L (12-78) Alkaline Phosphatase 73 U/L (46-116) 70 U/L (46-116) 70 U/L (46-116) Troponin I 1.531 ng/mL (0.000-0.056) 1.136 ng/mL (0.000-0.056) C-Reactive Protein, Quantitative 17.4 mg/dL (0.00-0.90) Pro-B-Type Natriuretic Peptide 60546 pg/mL (0-125) Total Protein 7.1 G/DL (6.4-8.2) 6.5 G/DL (6.4-8.2) 6.7 G/DL (6.4-8.2) Albumin 1.9 G/DL (3.4-5.0) 1.7 G/DL (3.4-5.0) 1.8 G/DL (3.4-5.0) Globulin 5.2 g/dL 4.8 g/dL 4.9 g/dL Albumin/Globulin Ratio 0.4 (1.0-2.7) 0.4 (1.0-2.7) 0.4 (1.0-2.7) Height (Feet): 5 Height (Inches): 6.00 Weight (Pounds): 162 Objective PHYSICAL EXAMINATION: GENERAL: Shows to be an elderly female, in no respiratory distress. HEENT: Unremarkable. NECK: Supple. No jugular venous distention. LUNGS: Crackles noted on the right base. CARDIAC: Regular rate and rhythm. No heaves, thrills, or gallops noted. ABDOMEN: Soft and nontender. Positive bowel sounds. EXTREMITIES: There is no edema. NEUROLOGIC: She is awake and responsive. Elder Paredes MD Nov 19, 2019 19:51
[2019-11-19 20:00] VITALS: BP 127/84
[2019-11-19] MEDS: Atorvastatin 80mg tab ORAL SCH (21:04)
--- NOTE | 2019-11-19 21:04 | Cardiology Progress Note ---
Assessment/Plan Assessment/Plan 1. Reported history of cardiomyopathy. 2. Shortness of breath, secondary to congestive heart failure, rule out an additional infectious cause. 3. Renal insufficiency. 4. Abnormal cardiac enzymes / NSTEMI 5. History of coronary artery disease with apparently prior documented angioplasties. 6. Systemic hypertension. 7. Hyperlipidemia. 8. Degenerative joint disease. 9. Pulm htn 10. 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 cr increased no cp now cr abn but stable at 1.8 has no cp at this time cxr in am Subjective Cardiovascular: Denies: chest pain, lightheadedness, palpitations Respiratory: Denies: shortness of breath Gastrointestinal/Abdominal: Denies: abdominal pain Objective Last 24 Hour Vital Signs Date Time Temp Pulse Resp B/P (MAP) Pulse Ox O2 Delivery O2 Flow Rate FiO2 11/19/19 20:00 84 11/19/19 20:00 Nasal Cannula 2.0 11/19/19 20:00 98.7 84 20 127/84 (98) 95 11/19/19 16:00 Nasal Cannula 2.0 11/19/19 16:00 98.1 78 22 124/67 (86) 97 11/19/19 15:28 76 11/19/19 14:00 132/75 11/19/19 12:00 Nasal Cannula 2.0 11/19/19 12:00 97.9 82 21 132/75 (94) 99 11/19/19 11:47 81 11/19/19 10:29 81 110/73 11/19/19 10:27 110/73 11/19/19 09:10 85 20 98 Nasal Cannula 2.0 28 11/19/19 09:08 99 Nasal Cannula 2.0 28 11/19/19 08:00 Nasal Cannula 2.0 11/19/19 08:00 97.9 81 22 110/73 (85) 97 11/19/19 07:44 78 11/19/19 05:34 112/71 11/19/19 04:00 Nasal Cannula 2.0 11/19/19 04:00 98.0 73 20 112/71 (85) 96 11/19/19 04:00 74 11/19/19 00:00 Nasal Cannula 2.0 11/19/19 00:00 98.0 74 20 109/69 (82) 97 11/19/19 00:00 77 11/18/19 21:16 119/72 11/18/19 21:14 73 119/72 11/18/19 21:14 119/72 General Appearance: no apparent distress, alert Neck: supple Cardiovascular: normal rate Respiratory/Chest: lungs clear, crackles/rales - left base only Abdomen: normal bowel sounds, non tender, soft Extremities: no swelling Intake and Output 11/18/19 11/19/19 19:00 07:00 Intake Total 240 ml Output Total 400 ml 400 ml Balance -160 ml -400 ml Intake Oral 240 ml Output Urine Total 400 ml 400 ml Laboratory Tests Test 11/19/19 04:30 Sodium Level 139 MMOL/L (136-145) Potassium Level 4.0 MMOL/L (3.5-5.1) Chloride Level 108 MMOL/L (98-107) H Carbon Dioxide Level 15 MMOL/L (21-32) L Anion Gap 16 mmol/L (5-15) H Blood Urea Nitrogen 57 mg/dL (7-18) H Creatinine 1.8 MG/DL (0.55-1.30) H Estimat Glomerular Filtration Rate mL/min (>60) Glucose Level 110 MG/DL (74-106) H Calcium Level 8.5 MG/DL (8.5-10.1) Phosphorus Level 4.1 MG/DL (2.5-4.9) Magnesium Level 2.2 MG/DL (1.8-2.4) Total Bilirubin 0.3 MG/DL (0.2-1.0) Aspartate Amino Transf (AST/SGOT) 30 U/L (15-37) Alanine Aminotransferase (ALT/SGPT) 35 U/L (12-78) Alkaline Phosphatase 70 U/L (46-116) Troponin I 1.136 ng/mL (0.000-0.056) Total Protein 6.7 G/DL (6.4-8.2) Albumin 1.8 G/DL (3.4-5.0) L Globulin 4.9 g/dL Albumin/Globulin Ratio 0.4 (1.0-2.7) L Hawa,Rasheed S. MD Nov 19, 2019 21:03
[2019-11-19] MEDS: Nitroglycerin Patch 0.4mg TDERMAL SCH (21:07)
[2019-11-20 04:00] VITALS: BP 117/64
--- NOTE | 2019-11-20 06:00 | NUR ---
NURSE NOTES: Asleep but easily awakened. alert and OX3 when awake. Denies pain or discomfort. SR on nurse monitoring. No distress noted. VSS Afebrile. Bed in lowest position. Call light within reach. Will continue to monitor.
--- NOTE | 2019-11-20 07:00 | NUR ---
NURSE NOTES: Received report from Shawn Bloom RN. Observed patient in bed, asleep, opens eyes spontaneously to verbal stimuli. On O2 2L via NC, no respiratory distress noted. Patient denies pain/discomfort at this time. Safety precautions in place, bed locked, alarmed, and in lowest position, side rails up x3, and call light left within reach. Instructed to call for assistance, verbalized understanding. Will continue plan of care and will continue to monitor patient.
[2019-11-20 08:00] VITALS: BP 115/69
[2019-11-20] MEDS: Docusate 100mg cap ORAL SCH ×2 (08:43→17:19)
[2019-11-20] MEDS: Tamsulosin 0.4mg cap ORAL SCH (08:43)
[2019-11-20] MEDS: Aspirin Baby 81mg ORAL SCH (08:43)
[2019-11-20] MEDS: Carvedilol 6.25mg Tab ORAL SCH ×2 (08:44→21:31)
[2019-11-20] MEDS: Lisinopril 2.5mg tab ORAL SCH (08:44)
--- NOTE | 2019-11-20 09:14 | Diagnostic Imaging Report ---
Indication: Shortness of breath, chest pain Technique: One view of the chest Comparison: 11/13/2019 Findings: Interim development of a moderate to large right pleural effusion. There is probably some pleural fluid on the left as well. There is bilateral interstitial congestion which appears it is new or increased since the prior study. The heart remains enlarged. Impression: Small left and large right pleural effusions, developing since prior study 11/13/2019. New or increased bilateral interstitial congestion. Cardiomegaly
--- NOTE | 2019-11-20 09:17 | Pulmonology Progress Note ---
Assessment/Plan Assessment/Plan Renal failure : Acute vs Chronic HyperKalemia; corrected UTI / Proteinuria / Leukocytosis; resolved Elevated Troponin and LFTs Urinary retention PLAN Seen by cardiology and nephrology Off BiPAP now Continue O2; check RA SaO2 DC held due to urinary retention Seen by urology Will start Flomax OK to dc to SNF with mcghee Subjective Interval Events: None new Constitutional: Reports: no symptoms HEENT: Repors: no symptoms Respiratory: Reports: no symptoms Cardiovascular: Reports: no symptoms Gastrointestinal/Abdominal: Reports: no symptoms Allergies: Coded Allergies: No Known Allergies (Unverified , 11/13/19) Objective Last 24 Hour Vital Signs Date Time Temp Pulse Resp B/P (MAP) Pulse Ox O2 Delivery O2 Flow Rate FiO2 11/20/19 08:44 80 115/69 11/20/19 08:44 115/69 11/20/19 08:00 Nasal Cannula 2.0 11/20/19 08:00 98.4 80 24 115/69 (84) 95 11/20/19 06:01 117/64 11/20/19 04:00 73 11/20/19 04:00 Nasal Cannula 2.0 11/20/19 04:00 99.0 73 20 117/64 (81) 95 11/20/19 00:00 Nasal Cannula 2.0 11/20/19 00:00 73 11/19/19 21:08 127/84 11/19/19 21:07 127/84 11/19/19 21:05 84 127/84 11/19/19 20:05 78 18 99 Nasal Cannula 2.0 28 11/19/19 20:05 99 Nasal Cannula 2.0 28 11/19/19 20:00 84 11/19/19 20:00 Nasal Cannula 2.0 11/19/19 20:00 98.7 84 20 127/84 (98) 95 11/19/19 16:00 Nasal Cannula 2.0 11/19/19 16:00 98.1 78 22 124/67 (86) 97 11/19/19 15:28 76 11/19/19 14:00 132/75 11/19/19 12:00 Nasal Cannula 2.0 11/19/19 12:00 97.9 82 21 132/75 (94) 99 11/19/19 11:47 81 11/19/19 10:29 81 110/73 11/19/19 10:27 110/73 Intake and Output 11/19/19 11/20/19 19:00 07:00 Intake Total 240 ml 480 ml Output Total 450 ml 450 ml Balance -210 ml 30 ml Intake Oral 240 ml 480 ml Output Urine Total 450 ml 450 ml # Bowel Movements 1 General Appearance: no acute distress HEENT: normocephalic Respiratory/Chest: chest wall non-tender Cardiovascular: normal peripheral pulses Abdomen: normal bowel sounds Current Medications Medications (Trade) Dose Ordered Sig/Ronn Route PRN Reason Start Time Stop Time Status Last Admin Dose Admin Acetaminophen (Tylenol) 650 mg Q6H PRN ORAL Mild Pain/Temp > 100.5 11/15/19 18:00 12/15/19 17:59 11/17/19 10:26 Allopurinol (allopurinoL) 300 mg DAILY ORAL 11/16/19 09:00 12/16/19 08:59 11/20/19 08:43 Aspirin (ASA) 81 mg DAILY ORAL 11/14/19 09:00 12/14/19 08:59 11/20/19 08:43 Atorvastatin Calcium (Lipitor) 80 mg BEDTIME ORAL 11/14/19 21:00 12/14/19 20:59 11/19/19 21:04 Carvedilol (Coreg) 6.25 mg EVERY 12 HOURS ORAL 11/16/19 21:00 12/16/19 20:59 11/20/19 08:44 Docusate Sodium (Colace) 100 mg TWICE A DAY ORAL 11/14/19 09:00 12/14/19 08:59 11/20/19 08:43 Folic Acid (Folate) 1 mg DAILY ORAL 11/14/19 09:00 12/14/19 08:59 11/20/19 08:43 Furosemide (Lasix) 20 mg DAILY ORAL 11/16/19 09:00 12/16/19 08:59 11/20/19 08:43 Gabapentin (Neurontin) 300 mg BID ORAL 11/13/19 15:00 12/13/19 14:59 11/20/19 08:43 Hydralazine HCl (Apresoline) 10 mg Q6HR PRN ORAL For High Blood Pressure 11/16/19 06:45 12/16/19 06:44 Hydroxychloroquine Sulfate (Plaquenil) 200 mg TWICE A DAY ORAL 11/13/19 18:00 12/13/19 17:59 11/20/19 08:43 Isosorbide Dinitrate (Isordil) 20 mg Q8HR ORAL 11/16/19 14:00 12/16/19 06:59 11/20/19 06:01 Lisinopril (ZestriL) 2.5 mg DAILY ORAL 11/16/19 11:30 12/16/19 11:29 11/20/19 08:44 Nitroglycerin (Ntg) 1 patch Q24H TDERMAL 11/13/19 21:00 12/13/19 20:59 11/19/19 21:07 Pantoprazole (Protonix) 40 mg Q12HR ORAL 11/13/19 21:00 12/13/19 14:44 11/20/19 08:43 Tamsulosin HCl (Flomax) 0.4 mg DAILY ORAL 11/18/19 13:45 12/18/19 13:44 11/20/19 08:43 Nikunj Jones MD Nov 20, 2019 09:17
--- NOTE | 2019-11-20 11:45 | NUR ---
NURSE NOTES: Physical therapy at bedside.
[2019-11-20 12:00] VITALS: BP 119/69
--- NOTE | 2019-11-20 12:01 | Nephrology Progress Note ---
Assessment/Plan Problem List: (1) Renal failure (ARF), acute on chronic (2) Urinary retention Assessment: 750 cc as of 11/17 (3) NSTEMI (non-ST elevated myocardial infarction) (4) UTI (urinary tract infection) (5) Ovarian cancer Assessment: by history (6) Cardiomyopathy Assessment Renal failure : Acute vs Chronic, associate: HyperKalemia UTI / Proteinuria / Leukocytosis Elevated Troponin and LFTs elevated troponin History of ovarian CA. Plan add flomax- mcghee Adjust BP meds- afterload reduction PRN BP meds Urine studies Per orders low dose lasix 2D echo 30% EjFx ISSA kidney Negative for hydronephrosis Subjective ROS Limited/Unobtainable: No Constitutional: Reports: malaise, weakness Objective Objective Last 24 Hour Vital Signs Date Time Temp Pulse Resp B/P (MAP) Pulse Ox O2 Delivery O2 Flow Rate FiO2 11/20/19 08:44 80 115/69 11/20/19 08:44 115/69 11/20/19 08:00 Nasal Cannula 2.0 11/20/19 08:00 98.4 80 24 115/69 (84) 95 11/20/19 07:22 78 11/20/19 06:01 117/64 11/20/19 04:00 73 11/20/19 04:00 Nasal Cannula 2.0 11/20/19 04:00 99.0 73 20 117/64 (81) 95 11/20/19 00:00 Nasal Cannula 2.0 11/20/19 00:00 73 11/19/19 21:08 127/84 11/19/19 21:07 127/84 11/19/19 21:05 84 127/84 11/19/19 20:05 78 18 99 Nasal Cannula 2.0 28 11/19/19 20:05 99 Nasal Cannula 2.0 28 11/19/19 20:00 84 11/19/19 20:00 Nasal Cannula 2.0 11/19/19 20:00 98.7 84 20 127/84 (98) 95 11/19/19 16:00 Nasal Cannula 2.0 11/19/19 16:00 98.1 78 22 124/67 (86) 97 11/19/19 15:28 76 11/19/19 14:00 132/75 11/19/19 12:00 Nasal Cannula 2.0 11/19/19 12:00 97.9 82 21 132/75 (94) 99 Intake and Output 11/19/19 11/20/19 19:00 07:00 Intake Total 240 ml 480 ml Output Total 450 ml 450 ml Balance -210 ml 30 ml Intake Oral 240 ml 480 ml Output Urine Total 450 ml 450 ml # Bowel Movements 1 Height (Feet): 5 Height (Inches): 6.00 Weight (Pounds): 163 General Appearance: no apparent distress Cardiovascular: normal rate Respiratory/Chest: decreased breath sounds Abdomen: soft Objective no change Nazario Vora MD Nov 20, 2019 12:01
--- NOTE | 2019-11-20 12:14 | NUR ---
NURSE NOTES: Called Dr Jones for clarification of orders: discharge patient to SNF; charge nurse notified and made aware. Charge nurse notified case management. Per case management, still awaiting for placement/insurance approval. Will continue to monitor.
--- NOTE | 2019-11-20 13:38 | NUR ---
[facility] DIRECTOR SI: HYPOXIA,PNA T. 98.3 HR 69 RR 24 B/P 119/69 2L NC 98% BUN 57 CR 1.8 AGAP 16 ALB 1.8 IS: FLOMAX COREG ZESTRIL LASIX PROTONIX PLACEMENT PENDING STEP DOWN STATUS
--- NOTE | 2019-11-20 13:44 | NUR ---
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 98.4 HR 69 RR 20 B/P 119/74 2L 98% TROP 1.531 BUN 52 CR 2.2 BNP [id number] ALB 1.9 IS; LASIX ZESTRIL COREG PROTONIX UROLOGY CONSULT STEP DOWN STATUS
--- NOTE | 2019-11-20 14:10 | NUR ---
*-* INSURANCE *-* UPDATED CLINICALS HAVE BEEN FAXED TO: [employer] P: [phone] F: [phone] REF# [id number]
--- NOTE | 2019-11-20 14:23 | Hematology/Onc Progress Note ---
Assessment/Plan Assessment/Plan ASSESSMENT: # Newly diagnosed Ovarian cancer -- supposed to see Dr. Maier, has been diagnosed at [facility], size of tumor "FOOTBALL Sized" --> staging at this time unknown --> needs surgical staging in the near future --> CA125 43 # Shortness of breath, secondary to congestive heart failure, rule out an additional infectious cause. --> as per ball shagger --> breathing treatments and diuresis as needed --> may need cath --> nc+ # Renal insufficiency. --> on ivf as needed # Troponin, Abnormal cardiac enzymes. --> elevated --> trend as needed, cath as needed # History of coronary artery disease with apparently prior documented angioplasties. --> per cards # Systemic hypertension. # Hyperlipidemia. # Degenerative joint disease. The timing of this note does not necessarily reflect the time of the patient was seen. Greatly appreciate consultation. Subjective Allergies: Coded Allergies: No Known Allergies (Unverified , 11/13/19) Subjective 11/15: remains on nc, no major changes overnight, dw daughter who I have seen before, no bleeding 11/17: sdu, awake and alert, labs reviewed, elevated trop, nc 3l 11/18; no major changes, labs reviewed, no bleeding, cr 2.2 11/19: awake, no acute distress, nc 2l, afebrile, no sob 11/20: no acute distress, cxr shows bilat pleural effusions, placement pending Objective Objective Current Medications Medications (Trade) Dose Ordered Sig/Ronn Route PRN Reason Start Time Stop Time Status Last Admin Dose Admin Acetaminophen (Tylenol) 650 mg Q6H PRN ORAL Mild Pain/Temp > 100.5 11/15/19 18:00 12/15/19 17:59 11/17/19 10:26 Allopurinol (allopurinoL) 300 mg DAILY ORAL 11/16/19 09:00 12/16/19 08:59 11/20/19 08:43 Aspirin (ASA) 81 mg DAILY ORAL 11/14/19 09:00 12/14/19 08:59 11/20/19 08:43 Atorvastatin Calcium (Lipitor) 80 mg BEDTIME ORAL 11/14/19 21:00 12/14/19 20:59 11/19/19 21:04 Carvedilol (Coreg) 6.25 mg EVERY 12 HOURS ORAL 11/16/19 21:00 12/16/19 20:59 11/20/19 08:44 Docusate Sodium (Colace) 100 mg TWICE A DAY ORAL 11/14/19 09:00 12/14/19 08:59 11/20/19 08:43 Folic Acid (Folate) 1 mg DAILY ORAL 11/14/19 09:00 12/14/19 08:59 11/20/19 08:43 Furosemide (Lasix) 20 mg DAILY ORAL 11/16/19 09:00 12/16/19 08:59 11/20/19 08:43 Gabapentin (Neurontin) 300 mg BID ORAL 11/13/19 15:00 12/13/19 14:59 11/20/19 08:43 Hydralazine HCl (Apresoline) 10 mg Q6HR PRN ORAL For High Blood Pressure 11/16/19 06:45 12/16/19 06:44 Hydroxychloroquine Sulfate (Plaquenil) 200 mg TWICE A DAY ORAL 11/13/19 18:00 12/13/19 17:59 11/20/19 08:43 Isosorbide Dinitrate (Isordil) 20 mg Q8HR ORAL 11/16/19 14:00 12/16/19 06:59 11/20/19 06:01 Lisinopril (ZestriL) 2.5 mg DAILY ORAL 11/16/19 11:30 12/16/19 11:29 11/20/19 08:44 Nitroglycerin (Ntg) 1 patch Q24H TDERMAL 11/13/19 21:00 12/13/19 20:59 11/19/19 21:07 Pantoprazole (Protonix) 40 mg Q12HR ORAL 11/13/19 21:00 12/13/19 14:44 11/20/19 08:43 Tamsulosin HCl (Flomax) 0.4 mg DAILY ORAL 11/18/19 13:45 12/18/19 13:44 11/20/19 08:43 Last 24 Hour Vital Signs Date Time Temp Pulse Resp B/P (MAP) Pulse Ox O2 Delivery O2 Flow Rate FiO2 11/20/19 12:00 98.3 69 24 119/69 (86) 97 11/20/19 12:00 Nasal Cannula 2.0 11/20/19 08:44 80 115/69 11/20/19 08:44 115/69 11/20/19 08:00 Nasal Cannula 2.0 11/20/19 08:00 98.4 80 24 115/69 (84) 95 11/20/19 07:22 78 11/20/19 06:01 117/64 11/20/19 04:00 73 11/20/19 04:00 Nasal Cannula 2.0 11/20/19 04:00 99.0 73 20 117/64 (81) 95 11/20/19 00:00 Nasal Cannula 2.0 11/20/19 00:00 73 11/19/19 21:08 127/84 11/19/19 21:07 127/84 11/19/19 21:05 84 127/84 11/19/19 20:05 78 18 99 Nasal Cannula 2.0 28 11/19/19 20:05 99 Nasal Cannula 2.0 28 11/19/19 20:00 84 11/19/19 20:00 Nasal Cannula 2.0 11/19/19 20:00 98.7 84 20 127/84 (98) 95 11/19/19 16:00 Nasal Cannula 2.0 11/19/19 16:00 98.1 78 22 124/67 (86) 97 11/19/19 15:28 76 11/19/19 14:00 132/75 11/19/19 12:00 Nasal Cannula 2.0 11/19/19 12:00 97.9 82 21 132/75 (94) 99 11/19/19 11:47 81 11/19/19 10:29 81 110/73 11/19/19 10:27 110/73 11/19/19 09:10 85 20 98 Nasal Cannula 2.0 28 11/19/19 09:08 99 Nasal Cannula 2.0 28 11/19/19 08:00 Nasal Cannula 2.0 11/19/19 08:00 97.9 81 22 110/73 (85) 97 11/19/19 07:44 78 11/19/19 05:34 112/71 11/19/19 04:00 Nasal Cannula 2.0 11/19/19 04:00 98.0 73 20 112/71 (85) 96 11/19/19 04:00 74 11/19/19 00:00 Nasal Cannula 2.0 11/19/19 00:00 98.0 74 20 109/69 (82) 97 11/19/19 00:00 77 11/18/19 21:16 119/72 11/18/19 21:14 73 119/72 11/18/19 21:14 119/72 11/18/19 20:00 98.0 73 24 119/72 (88) 97 11/18/19 20:00 78 11/18/19 20:00 Nasal Cannula 2.0 11/18/19 19:33 99 Nasal Cannula 2.0 28 11/18/19 19:33 77 18 99 Nasal Cannula 2.0 28 11/18/19 16:00 97.2 73 20 114/71 (85) 97 11/18/19 16:00 Nasal Cannula 2.0 11/18/19 15:30 70 11/18/19 14:21 119/56 Intake and Output 11/19/19 11/20/19 19:00 07:00 Intake Total 240 ml 480 ml Output Total 450 ml 450 ml Balance -210 ml 30 ml Intake Oral 240 ml 480 ml Output Urine Total 450 ml 450 ml # Bowel Movements 1 Labs Test 11/18/19 11:30 11/19/19 04:30 Sodium Level 134 MMOL/L (136-145) 139 MMOL/L (136-145) Potassium Level 3.5 MMOL/L (3.5-5.1) 4.0 MMOL/L (3.5-5.1) Chloride Level 106 MMOL/L (98-107) 108 MMOL/L (98-107) Carbon Dioxide Level 20 MMOL/L (21-32) 15 MMOL/L (21-32) Anion Gap 8 mmol/L (5-15) 16 mmol/L (5-15) Blood Urea Nitrogen 53 mg/dL (7-18) 57 mg/dL (7-18) Creatinine 1.8 MG/DL (0.55-1.30) 1.8 MG/DL (0.55-1.30) Estimat Glomerular Filtration Rate mL/min (>60) mL/min (>60) Glucose Level 127 MG/DL (74-106) 110 MG/DL (74-106) Uric Acid 9.4 MG/DL (2.6-7.2) Calcium Level 8.3 MG/DL (8.5-10.1) 8.5 MG/DL (8.5-10.1) Phosphorus Level 3.8 MG/DL (2.5-4.9) 4.1 MG/DL (2.5-4.9) Magnesium Level 2.0 MG/DL (1.8-2.4) 2.2 MG/DL (1.8-2.4) Total Bilirubin 0.3 MG/DL (0.2-1.0) 0.3 MG/DL (0.2-1.0) Aspartate Amino Transf (AST/SGOT) 20 U/L (15-37) 30 U/L (15-37) Alanine Aminotransferase (ALT/SGPT) 34 U/L (12-78) 35 U/L (12-78) Alkaline Phosphatase 70 U/L (46-116) 70 U/L (46-116) Total Protein 6.5 G/DL (6.4-8.2) 6.7 G/DL (6.4-8.2) Albumin 1.7 G/DL (3.4-5.0) 1.8 G/DL (3.4-5.0) Globulin 4.8 g/dL 4.9 g/dL Albumin/Globulin Ratio 0.4 (1.0-2.7) 0.4 (1.0-2.7) Troponin I 1.136 ng/mL (0.000-0.056) Height (Feet): 5 Height (Inches): 6.00 Weight (Pounds): 163 Objective PHYSICAL EXAMINATION: GENERAL: Shows to be an elderly female, in no respiratory distress. HEENT: Unremarkable. NECK: Supple. No jugular venous distention. LUNGS: Crackles noted on the right base. NC+ CARDIAC: Regular rate and rhythm. No heaves, thrills, or gallops noted. ABDOMEN: Soft and nontender. Positive bowel sounds. EXTREMITIES: There is no edema. NEUROLOGIC: She is awake and responsive. Elder Paredes MD Nov 20, 2019 14:23
--- NOTE | 2019-11-20 14:25 | NUR ---
NURSE NOTES: [facility] at bedside.
[2019-11-20 16:00] VITALS: BP 115/67
--- NOTE | 2019-11-20 17:10 | NUR ---
NURSE NOTES: Patient's daughter Kendy at bedside.
--- NOTE | 2019-11-20 19:20 | NUR ---
HAND-OFF: Report given to Shawn Bloom RN. Endorsed plan of care. Patient in stable condition.
--- NOTE | 2019-11-20 19:20 | NUR ---
NURSE NOTES: Received pt from Mirian Razo RN. Pt awake, alert and OX3. Denies pain or discomfort. SR on residential monitor. No distress noted. Respirations even and unlabored VSS Afebrile. Bed in lowest position. Call light within reach. Will continue POC.
--- NOTE | 2019-11-20 19:53 | Cardiology Progress Note ---
Assessment/Plan Assessment/Plan 1. Reported history of cardiomyopathy. 2. Shortness of breath, secondary to congestive heart failure, rule out an additional infectious cause. 3. Renal insufficiency. 4. Abnormal cardiac enzymes / NSTEMI 5. History of coronary artery disease with apparently prior documented angioplasties. 6. Systemic hypertension. 7. Hyperlipidemia. 8. Degenerative joint disease. 9. Pulm htn 10. ovarian cancer 11. 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 no cp now cr abn but stable at 1.8 has no cp at this time cxr noted message left for dr raymundo regarding finding iv lasix one dose now Subjective Cardiovascular: Denies: chest pain, lightheadedness Respiratory: Reports: shortness of breath, SOB with excertion Gastrointestinal/Abdominal: Denies: abdominal pain Genitourinary: Denies: burning Objective Last 24 Hour Vital Signs Date Time Temp Pulse Resp B/P (MAP) Pulse Ox O2 Delivery O2 Flow Rate FiO2 11/20/19 16:21 98 Nasal Cannula 2.0 28 11/20/19 16:18 75 17 98 Nasal Cannula 2.0 28 11/20/19 16:00 98.7 78 20 115/67 (83) 100 11/20/19 16:00 Nasal Cannula 2.0 11/20/19 15:14 80 11/20/19 14:25 110/67 11/20/19 12:06 76 11/20/19 12:00 98.3 69 24 119/69 (86) 97 11/20/19 12:00 Nasal Cannula 2.0 11/20/19 08:44 80 115/69 11/20/19 08:44 115/69 11/20/19 08:00 Nasal Cannula 2.0 11/20/19 08:00 98.4 80 24 115/69 (84) 95 11/20/19 07:22 78 11/20/19 06:01 117/64 11/20/19 04:00 73 11/20/19 04:00 Nasal Cannula 2.0 11/20/19 04:00 99.0 73 20 117/64 (81) 95 11/20/19 00:00 Nasal Cannula 2.0 11/20/19 00:00 73 11/19/19 21:08 127/84 11/19/19 21:07 127/84 11/19/19 21:05 84 127/84 11/19/19 20:05 78 18 99 Nasal Cannula 2.0 28 11/19/19 20:05 99 Nasal Cannula 2.0 28 11/19/19 20:00 84 11/19/19 20:00 Nasal Cannula 2.0 11/19/19 20:00 98.7 84 20 127/84 (98) 95 General Appearance: no apparent distress, alert Neck: supple Cardiovascular: normal rate Respiratory/Chest: decreased breath sounds - right side Abdomen: normal bowel sounds, non tender, soft Extremities: no swelling Intake and Output 11/19/19 11/20/19 19:00 07:00 Intake Total 240 ml 480 ml Output Total 450 ml 450 ml Balance -210 ml 30 ml Intake Oral 240 ml 480 ml Output Urine Total 450 ml 450 ml # Bowel Movements 1 Rasheed Shaikh MD Nov 20, 2019 19:53
[2019-11-20] MEDS: Atorvastatin 80mg tab ORAL SCH (21:29)
[2019-11-20] MEDS: Nitroglycerin Patch 0.4mg TDERMAL SCH (21:32)
--- NOTE | 2019-11-20 23:00 | NUR ---
NURSE NOTES: Received report from Merle Escobar Rn, pt. in bed asleep, arousbale to name- chest noted rising up and down, pt. is a/o x's4- able to make needs known, pt. appears to be sating well on 2L NC- no distress noted, pt. appears to be clean and dry, bed in low position and engaged in position, call light w within easy reach, and side rails up x's3, RFA 20G and Lt. hand 20G - both IVs intact and patent, safety measures continued, will continue with plan of care.
--- NOTE | 2019-11-20 23:00 | NUR ---
HAND-OFF: Report given to MAEGAN Macedo.
[2019-11-21 00:16] VITALS: BP 124/82
[2019-11-21 04:00] VITALS: BP 129/72
[2019-11-21 08:00] VITALS: BP 129/71
[2019-11-21] MEDS: Carvedilol 6.25mg Tab ORAL SCH (08:21)
[2019-11-21] MEDS: Tamsulosin 0.4mg cap ORAL SCH (08:21)
[2019-11-21] MEDS: Aspirin Baby 81mg ORAL SCH (08:22)
[2019-11-21] MEDS: Docusate 100mg cap ORAL SCH (08:22)
--- NOTE | 2019-11-21 08:32 | NUR ---
NURSE NOTES: per charge nurse pts daughter requesting to take pt. home instead of fpc- and to ask DR. Jones if that is okay- per DR. Jones he is aware and will f/u with patient later today.
[2019-11-21] MEDS: Lisinopril 2.5mg tab ORAL SCH (09:15)
--- NOTE | 2019-11-21 10:23 | Nephrology Progress Note ---
Assessment/Plan Problem List: (1) Renal failure (ARF), acute on chronic (2) Urinary retention Assessment: 750 cc as of 11/17 (3) NSTEMI (non-ST elevated myocardial infarction) (4) UTI (urinary tract infection) (5) Ovarian cancer Assessment: by history (6) Cardiomyopathy Assessment Renal failure : Acute vs Chronic, associate: HyperKalemia UTI / Proteinuria / Leukocytosis Elevated Troponin and LFTs elevated troponin History of ovarian CA. Plan add flomax- mcghee Adjust BP meds- afterload reduction PRN BP meds Urine studies Per orders low dose lasix 2D echo 30% EjFx ISSA kidney Negative for hydronephrosis Subjective ROS Limited/Unobtainable: No Constitutional: Reports: malaise Objective Objective Last 24 Hour Vital Signs Date Time Temp Pulse Resp B/P (MAP) Pulse Ox O2 Delivery O2 Flow Rate FiO2 11/21/19 09:15 121/66 11/21/19 08:21 92 129/71 11/21/19 08:00 98.4 92 19 129/71 (90) 97 11/21/19 08:00 2.0 11/21/19 08:00 Nasal Cannula 2.0 11/21/19 07:53 93 Nasal Cannula 2.0 28 11/21/19 07:53 91 20 93 Nasal Cannula 2.0 28 11/21/19 07:48 94 11/21/19 05:02 129/72 11/21/19 04:00 2.0 11/21/19 04:00 99.1 79 22 129/72 (91) 97 11/21/19 04:00 Nasal Cannula 2.0 11/21/19 03:41 81 11/21/19 00:16 98.9 83 22 124/82 (96) 100 11/21/19 00:00 Nasal Cannula 2.0 11/21/19 00:00 Nasal Cannula 2.0 11/21/19 00:00 2.0 11/20/19 23:23 81 11/20/19 21:32 115/67 11/20/19 21:31 84 115/67 11/20/19 21:31 115/67 11/20/19 20:02 Nasal Cannula 2.0 11/20/19 20:00 84 11/20/19 16:21 98 Nasal Cannula 2.0 28 11/20/19 16:18 75 17 98 Nasal Cannula 2.0 28 11/20/19 16:00 98.7 78 20 115/67 (83) 100 11/20/19 16:00 Nasal Cannula 2.0 11/20/19 15:14 80 11/20/19 14:25 110/67 11/20/19 12:06 76 11/20/19 12:00 98.3 69 24 119/69 (86) 97 11/20/19 12:00 Nasal Cannula 2.0 Intake and Output 11/20/19 11/21/19 19:00 07:00 Intake Total 400 ml Output Total 500 ml 1000 ml Balance -100 ml -1000 ml Intake Oral 400 ml Output Urine Total 500 ml 1000 ml # Bowel Movements 1 Current Medications Medications (Trade) Dose Ordered Sig/Ronn Route PRN Reason Start Time Stop Time Status Last Admin Dose Admin Acetaminophen (Tylenol) 650 mg Q6H PRN ORAL Mild Pain/Temp > 100.5 11/15/19 18:00 12/15/19 17:59 11/17/19 10:26 Allopurinol (allopurinoL) 300 mg DAILY ORAL 11/16/19 09:00 12/16/19 08:59 11/21/19 08:22 Aspirin (ASA) 81 mg DAILY ORAL 11/14/19 09:00 12/14/19 08:59 11/21/19 08:22 Atorvastatin Calcium (Lipitor) 80 mg BEDTIME ORAL 11/14/19 21:00 12/14/19 20:59 11/20/19 21:29 Carvedilol (Coreg) 6.25 mg EVERY 12 HOURS ORAL 11/16/19 21:00 12/16/19 20:59 11/21/19 08:21 Docusate Sodium (Colace) 100 mg TWICE A DAY ORAL 11/14/19 09:00 12/14/19 08:59 11/21/19 08:22 Folic Acid (Folate) 1 mg DAILY ORAL 11/14/19 09:00 12/14/19 08:59 11/21/19 08:21 Furosemide (Lasix) 20 mg DAILY ORAL 11/16/19 09:00 12/16/19 08:59 11/21/19 08:20 Gabapentin (Neurontin) 300 mg BID ORAL 11/13/19 15:00 12/13/19 14:59 11/21/19 08:22 Hydralazine HCl (Apresoline) 10 mg Q6HR PRN ORAL For High Blood Pressure 11/16/19 06:45 12/16/19 06:44 Hydroxychloroquine Sulfate (Plaquenil) 200 mg TWICE A DAY ORAL 11/13/19 18:00 12/13/19 17:59 11/21/19 08:21 Isosorbide Dinitrate (Isordil) 20 mg Q8HR ORAL 11/16/19 14:00 12/16/19 06:59 11/21/19 05:02 Lisinopril (ZestriL) 2.5 mg DAILY ORAL 11/16/19 11:30 12/16/19 11:29 11/21/19 09:15 Nitroglycerin (Ntg) 1 patch Q24H TDERMAL 11/13/19 21:00 12/13/19 20:59 11/20/19 21:32 Pantoprazole (Protonix) 40 mg Q12HR ORAL 11/13/19 21:00 12/13/19 14:44 11/21/19 08:21 Tamsulosin HCl (Flomax) 0.4 mg DAILY ORAL 11/18/19 13:45 12/18/19 13:44 11/21/19 08:21 Height (Feet): 5 Height (Inches): 6.00 Weight (Pounds): 162 General Appearance: no apparent distress Objective no change Nazario Vora MD Nov 21, 2019 10:23
--- NOTE | 2019-11-21 11:00 | NUR ---
NURSE NOTES: Received report from MAEGAN Macedo,patient awake with family at bedside,family desires to take her home,mcghee leaking,will be changed
--- NOTE | 2019-11-21 11:48 | Pulmonology Progress Note ---
Assessment/Plan Assessment/Plan Renal failure : Acute vs Chronic HyperKalemia; corrected UTI / Proteinuria / Leukocytosis; resolved Elevated Troponin and LFTs Urinary retention PLAN Seen by cardiology and nephrology Off BiPAP now Continue O2; check RA SaO2 DC held due to urinary retention Seen by urology Continue Flomax OK to dc to home with mcghee Discussed with daughter Subjective Interval Events: Feeling better Constitutional: Reports: no symptoms HEENT: Repors: no symptoms Respiratory: Reports: no symptoms Cardiovascular: Reports: no symptoms Gastrointestinal/Abdominal: Reports: no symptoms Allergies: Coded Allergies: No Known Allergies (Unverified , 11/13/19) Objective Last 24 Hour Vital Signs Date Time Temp Pulse Resp B/P (MAP) Pulse Ox O2 Delivery O2 Flow Rate FiO2 11/21/19 09:15 121/66 11/21/19 08:21 92 129/71 11/21/19 08:00 98.4 92 19 129/71 (90) 97 11/21/19 08:00 2.0 11/21/19 08:00 Nasal Cannula 2.0 11/21/19 07:53 93 Nasal Cannula 2.0 28 11/21/19 07:53 91 20 93 Nasal Cannula 2.0 28 11/21/19 07:48 94 11/21/19 05:02 129/72 11/21/19 04:00 2.0 11/21/19 04:00 99.1 79 22 129/72 (91) 97 11/21/19 04:00 Nasal Cannula 2.0 11/21/19 03:41 81 11/21/19 00:16 98.9 83 22 124/82 (96) 100 11/21/19 00:00 Nasal Cannula 2.0 11/21/19 00:00 Nasal Cannula 2.0 11/21/19 00:00 2.0 11/20/19 23:23 81 11/20/19 21:32 115/67 11/20/19 21:31 84 115/67 11/20/19 21:31 115/67 11/20/19 20:02 Nasal Cannula 2.0 11/20/19 20:00 84 11/20/19 16:21 98 Nasal Cannula 2.0 28 11/20/19 16:18 75 17 98 Nasal Cannula 2.0 28 11/20/19 16:00 98.7 78 20 115/67 (83) 100 11/20/19 16:00 Nasal Cannula 2.0 11/20/19 15:14 80 11/20/19 14:25 110/67 11/20/19 12:06 76 11/20/19 12:00 98.3 69 24 119/69 (86) 97 11/20/19 12:00 Nasal Cannula 2.0 Intake and Output 11/20/19 11/21/19 19:00 07:00 Intake Total 400 ml Output Total 500 ml 1000 ml Balance -100 ml -1000 ml Intake Oral 400 ml Output Urine Total 500 ml 1000 ml # Bowel Movements 1 General Appearance: no acute distress HEENT: normocephalic Respiratory/Chest: chest wall non-tender, decreased breath sounds Cardiovascular: normal peripheral pulses, normal rate Abdomen: normal bowel sounds Current Medications Medications (Trade) Dose Ordered Sig/Ronn Route PRN Reason Start Time Stop Time Status Last Admin Dose Admin Acetaminophen (Tylenol) 650 mg Q6H PRN ORAL Mild Pain/Temp > 100.5 11/15/19 18:00 12/15/19 17:59 11/17/19 10:26 Allopurinol (allopurinoL) 300 mg DAILY ORAL 11/16/19 09:00 12/16/19 08:59 11/21/19 08:22 Aspirin (ASA) 81 mg DAILY ORAL 11/14/19 09:00 12/14/19 08:59 11/21/19 08:22 Atorvastatin Calcium (Lipitor) 80 mg BEDTIME ORAL 11/14/19 21:00 12/14/19 20:59 11/20/19 21:29 Carvedilol (Coreg) 6.25 mg EVERY 12 HOURS ORAL 11/16/19 21:00 12/16/19 20:59 11/21/19 08:21 Docusate Sodium (Colace) 100 mg TWICE A DAY ORAL 11/14/19 09:00 12/14/19 08:59 11/21/19 08:22 Folic Acid (Folate) 1 mg DAILY ORAL 11/14/19 09:00 12/14/19 08:59 11/21/19 08:21 Furosemide (Lasix) 20 mg DAILY ORAL 11/16/19 09:00 12/16/19 08:59 11/21/19 08:20 Gabapentin (Neurontin) 300 mg BID ORAL 11/13/19 15:00 12/13/19 14:59 11/21/19 08:22 Hydralazine HCl (Apresoline) 10 mg Q6HR PRN ORAL For High Blood Pressure 11/16/19 06:45 12/16/19 06:44 Hydroxychloroquine Sulfate (Plaquenil) 200 mg TWICE A DAY ORAL 11/13/19 18:00 12/13/19 17:59 11/21/19 08:21 Isosorbide Dinitrate (Isordil) 20 mg Q8HR ORAL 11/16/19 14:00 12/16/19 06:59 11/21/19 05:02 Lisinopril (ZestriL) 2.5 mg DAILY ORAL 11/16/19 11:30 12/16/19 11:29 11/21/19 09:15 Nitroglycerin (Ntg) 1 patch Q24H TDERMAL 11/13/19 21:00 12/13/19 20:59 11/20/19 21:32 Pantoprazole (Protonix) 40 mg Q12HR ORAL 11/13/19 21:00 12/13/19 14:44 11/21/19 08:21 Tamsulosin HCl (Flomax) 0.4 mg DAILY ORAL 11/18/19 13:45 12/18/19 13:44 11/21/19 08:21 Nikunj Jones MD Nov 21, 2019 11:48
[2019-11-21 12:00] VITALS: BP 113/68
--- NOTE | 2019-11-21 12:00 | NUR ---
NURSE NOTES: Patient going home with mcghee catheter for retention per Dr. Jones, Addendum: 11/21/19 at 1646 by Adrianne Palmer RN room air saturation 96-98 no shortness of breath
--- NOTE | 2019-11-21 12:49 | NUR ---
BATTERY ASSEMBLER NOTES PT TO DC WITH ALLEVIATION [phone]. PT CURRENTLY HAS OXYGEN AT HOME PER PT AND INSURANCE COMPANY. PT TO DC HOME WITH FAMILY.
--- NOTE | 2019-11-21 13:00 | NUR ---
NURSE NOTES: Patient going home,happy to go home Daughter-Kendy Artis will take care of patient,home health service,per Mckenzie case therapist will be going to her house tomorrow Discharge instructions reviewed with Daughter,medications,care mcghee catheter-how to switch from leg bag to mchgee bag with aseptic technique-verbalize understanding,copy provided
--- NOTE | 2019-11-21 14:05 | NUR ---
PT NOTE Attempted to see patient for PT treatment. Patient preparing for discharge home, not available to participate with PT at this time.
[2019-11-21] MEDS ORDERED: Sterile Water Irrig 1000ml IRRIG ONE (14:18)
[2019-11-21] MEDS ORDERED: NS 275ml ONE ×2 (14:18)
--- NOTE | 2019-11-21 14:19 | NUR ---
NURSE NOTES: 1419 Patient discharge with daughter-Kendy Artisper wheelchair with Nurses thomas Reza with belongings and prescription Addendum: 11/21/19 at 1614 by Adrianne Palmer RN place litzy to leg bag,
--- NOTE | 2019-11-21 15:25 | Hematology/Onc Progress Note ---
Assessment/Plan Assessment/Plan ASSESSMENT: # Newly diagnosed Ovarian cancer -- supposed to see Dr. Maier, has been diagnosed at [facility], size of tumor "FOOTBALL Sized" --> staging at this time unknown --> needs surgical staging in the near future --> CA125 43 # Shortness of breath, secondary to congestive heart failure, rule out an additional infectious cause. --> as per soils analyst --> breathing treatments and diuresis as needed --> may need cath --> nc+ # Renal insufficiency. --> on ivf as needed # Troponin, Abnormal cardiac enzymes. --> elevated --> trend as needed, cath as needed # History of coronary artery disease with apparently prior documented angioplasties. --> per cards # Systemic hypertension. # Hyperlipidemia. # Degenerative joint disease. The timing of this note does not necessarily reflect the time of the patient was seen. Greatly appreciate consultation. Subjective Allergies: Coded Allergies: No Known Allergies (Unverified , 11/13/19) Subjective 11/15: remains on nc, no major changes overnight, dw daughter who I have seen before, no bleeding 11/17: sdu, awake and alert, labs reviewed, elevated trop, nc 3l 11/18; no major changes, labs reviewed, no bleeding, cr 2.2 11/19: awake, no acute distress, nc 2l, afebrile, no sob 11/20: no acute distress, cxr shows bilat pleural effusions, placement pending 11/21: awake and alert, no acute distress, stable for dc Objective Objective Last 24 Hour Vital Signs Date Time Temp Pulse Resp B/P (MAP) Pulse Ox O2 Delivery O2 Flow Rate FiO2 11/21/19 09:15 121/66 11/21/19 08:21 92 129/71 11/21/19 08:00 98.4 92 19 129/71 (90) 97 11/21/19 08:00 2.0 11/21/19 08:00 Nasal Cannula 2.0 11/21/19 07:53 93 Nasal Cannula 2.0 28 11/21/19 07:53 91 20 93 Nasal Cannula 2.0 28 11/21/19 07:48 94 11/21/19 05:02 129/72 11/21/19 04:00 2.0 11/21/19 04:00 99.1 79 22 129/72 (91) 97 11/21/19 04:00 Nasal Cannula 2.0 11/21/19 03:41 81 11/21/19 00:16 98.9 83 22 124/82 (96) 100 11/21/19 00:00 Nasal Cannula 2.0 11/21/19 00:00 Nasal Cannula 2.0 11/21/19 00:00 2.0 11/20/19 23:23 81 11/20/19 21:32 115/67 11/20/19 21:31 84 115/67 11/20/19 21:31 115/67 11/20/19 20:02 Nasal Cannula 2.0 11/20/19 20:00 84 11/20/19 16:21 98 Nasal Cannula 2.0 28 11/20/19 16:18 75 17 98 Nasal Cannula 2.0 28 11/20/19 16:00 98.7 78 20 115/67 (83) 100 11/20/19 16:00 Nasal Cannula 2.0 11/20/19 15:14 80 11/20/19 14:25 110/67 11/20/19 12:06 76 11/20/19 12:00 98.3 69 24 119/69 (86) 97 11/20/19 12:00 Nasal Cannula 2.0 11/20/19 08:44 80 115/69 11/20/19 08:44 115/69 11/20/19 08:00 Nasal Cannula 2.0 11/20/19 08:00 98.4 80 24 115/69 (84) 95 11/20/19 07:22 78 11/20/19 06:01 117/64 11/20/19 04:00 73 11/20/19 04:00 Nasal Cannula 2.0 11/20/19 04:00 99.0 73 20 117/64 (81) 95 11/20/19 00:00 Nasal Cannula 2.0 11/20/19 00:00 73 11/19/19 21:08 127/84 11/19/19 21:07 127/84 11/19/19 21:05 84 127/84 11/19/19 20:05 78 18 99 Nasal Cannula 2.0 28 11/19/19 20:05 99 Nasal Cannula 2.0 28 11/19/19 20:00 84 1/28/20 20:00 Nasal Cannula 2.0 11/19/19 20:00 98.7 84 20 127/84 (98) 95 11/19/19 16:00 Nasal Cannula 2.0 11/19/19 16:00 98.1 78 22 124/67 (86) 97 11/19/19 15:28 76 Intake and Output 11/20/19 11/21/19 19:00 07:00 Intake Total 400 ml Output Total 500 ml 1000 ml Balance -100 ml -1000 ml Intake Oral 400 ml Output Urine Total 500 ml 1000 ml # Bowel Movements 1 Labs Test 11/19/19 04:30 Sodium Level 139 MMOL/L (136-145) Potassium Level 4.0 MMOL/L (3.5-5.1) Chloride Level 108 MMOL/L (98-107) Carbon Dioxide Level 15 MMOL/L (21-32) Anion Gap 16 mmol/L (5-15) Blood Urea Nitrogen 57 mg/dL (7-18) Creatinine 1.8 MG/DL (0.55-1.30) Estimat Glomerular Filtration Rate mL/min (>60) Glucose Level 110 MG/DL (74-106) Calcium Level 8.5 MG/DL (8.5-10.1) Phosphorus Level 4.1 MG/DL (2.5-4.9) Magnesium Level 2.2 MG/DL (1.8-2.4) Total Bilirubin 0.3 MG/DL (0.2-1.0) Aspartate Amino Transf (AST/SGOT) 30 U/L (15-37) Alanine Aminotransferase (ALT/SGPT) 35 U/L (12-78) Alkaline Phosphatase 70 U/L (46-116) Troponin I 1.136 ng/mL (0.000-0.056) Total Protein 6.7 G/DL (6.4-8.2) Albumin 1.8 G/DL (3.4-5.0) Globulin 4.9 g/dL Albumin/Globulin Ratio 0.4 (1.0-2.7) Height (Feet): 5 Height (Inches): 6.00 Weight (Pounds): 162 Objective PHYSICAL EXAMINATION: GENERAL: Shows to be an elderly female, in no respiratory distress. HEENT: Unremarkable. NECK: Supple. No jugular venous distention. LUNGS: Crackles noted on the right base. NC+ CARDIAC: Regular rate and rhythm. No heaves, thrills, or gallops noted. ABDOMEN: Soft and nontender. Positive bowel sounds. EXTREMITIES: There is no edema. NEUROLOGIC: She is awake and responsive. Elder Paredes MD Nov 21, 2019 15:25
--- NOTE | 2019-11-21 16:48 | NUR ---
*-* INSURANCE *-* UNABLE TO SEND DISCHARGE SUMMARY NOT IN SYSTEM
--- NOTE | 2019-11-25 16:45 | NUR ---
*-* INSURANCE *-* UNABLE TO SEND DISCHARGE SUMMARY NOT IN SYSTEM
--- NOTE | 2019-11-26 10:59 | Discharge Summary ---
Discharge Summary Discharge Summary _ DATE OF ADMISSION: 11/13/2019 DATE OF DISCHARGE: 11/21/2019 DISCHARGED BY: Dr. Jones REASON FOR ADMISSION: 74 years old female with past medical history of hypertension, ovarian cancer, congestive heart failure, was brought by ambulance due to respiratory distress . Family also reported altered mental status and generalized weakness. Blood sugar was 123. Patient required 100% nonrebreathing mask and saturated only 8%. Chest x-ray demonstrated no definite infiltrate or pulmonary vascular congestion. No overt CHF. Laboratory work-up revealed leukocytosis with WBC 19.2, stable hemoglobi, n hematocrit and platelet count. ABG on room air revealed hypoxia. Troponin elevated - 0.755 . Pro BNP 86194. Potassium 5.2. BUN 34, creatinine 2.0. AST 175 , ALT 205. Urinalysis revealed +2 leukocyte esterase, no pyuria, no bacteria. Urine toxicology screen was positive for barbiturates. Renal ultrasound revealed no evidence of hydronephrosis. Septated cystic pelvic mass noted. Patient subsequently admitted to stepdown unit for further management. CONSULTANTS: chief design engineer Dr. Shaikh urologist Dr. Hale mechanical assembler Dr. Vora pickle solution maker/oncologist [facility] COURSE: Patient admitted to stepdown unit. Supplemental oxygen titrated to keep pulse oximetry above 92%. Bronchodilator treatment provided as needed. Sedation was minimized. Home medication continued. Echocardiogram revealed global left ventricular hypokinesis with left ventricular ejection fraction estimated to be 30 to 35%. No evidence of pericardial effusion. Moderate mitral regurgitation. Moderately elevated left atrial pressure grade 2. Right ventricular systolic pressure of 69 consistent with severe pulmonary hypertension. Patient started on diuresis with close monitoring of volumes and cardiorenal parameters. Guideline directed medical therapy with beta-julio , VIJAY inhibitor along with diuretic provided. Nitrates continued. Per chief design engineer , elevated troponin was likely due to NSTEMI, probably due to increased demand. Antiplatelet therapy with aspirin , beta-julio and statin continued Patient has a history of coronary artery disease with angioplasty along with hypertension and hyperlipidemia. Troponin was mildly elevated ; and elevated levels were flat without significant peak or nadine. Patient may benefit from cardiac catheterization in light of prior coronary artery disease and cardiomyopathy. Patient follows with outpatient chief design engineer Dr. Haynes at [facility]. Patient had no chest pain. Per cardiology shortness of breath was likely due to congestive heart failure Beater Room Supervisor followed. Renal parameters and electrolytes were closely monitored, electrolytes corrected as needed. Urine studies were done. Patient was on low-dose of Lasix due to systolic dysfunction. Prior to discharge creatinine from 2.0 down to 1.8. Potassium and sodium corrected. Patient recently was diagnosed with ovarian cancer at [facility] . Patient will need surgical staging in the near future and follow-up with her oncologist as outpatient. Patient had urinary retention. Casarez catheter was placed . Renal ultrasound showed minimal hydronephrosis , no other acute pathology , except ovarian mass. Urologist recommended continue Casarez catheter for at least 7 to 14 days. Patient was started on Flomax . Patient was advised to have outpatient cystoscopy or urodynamic study. Leukocytosis resolved, most likely was reactive; no evidence of infection. Supportive care provided. Bowel regimen instituted. Patient clinically stabilized and was ready for transfer to home with home health services to follow FINAL DIAGNOSES: Abnormal cardiac enzymes/NSTEMI Congestive heart failure ,systolic and diastolic dysfunction Cardiomyopathy with ejection fraction 30 to 35% Renal failure, acute on chronic Urinary retention Ovarian cancer Leukocytosis -resolved History of coronary artery disease with angioplasty Systemic hypertension Hyperlipidemia Pulmonary hypertension DISCHARGE MEDICATIONS: See Medication Reconciliation list. DISCHARGE INSTRUCTIONS: Patient was discharged home with home health services. Follow up with primary care provider in one week. I have been assigned to dictate discharge summary for this account I was not involved in the patient's management. Mini Okeefe NP Nov 26, 2019 10:59
--- NOTE | 2019-11-28 15:52 | NUR ---
*-* INSURANCE *-* DISCHARGE SUMMARY HAS BEEN FAXED: [employer] P: [phone] F: [phone] REF# [id number]
== END 2019-11-21 14:19 | disposition home health service (06) | DRG 280 ==
LOC: EDBD 00:11 → EMR 02:15 → EDBEDREQSVC 02:43 → 2W 03:11 → EDBEDREQ 04:28 → 2E 05:57 → 2W 06:05
PROC: 5A09357 Assistance with Respiratory Ventilation, Less than 24 Consecutive Hours, Continuous Positive Airway Pressure (ICD-10-PCS; principal; 2019-11-13)
DX: I21.4 Non-ST elevation (NSTEMI) myocardial infarction (principal); J96.90 Respiratory failure, unspecified, unspecified whether with hypoxia or hypercapnia; N17.9 Acute kidney failure, unspecified; C56.9 Malignant neoplasm of unspecified ovary; N39.0 Urinary tract infection, site not specified; I13.0 Hypertensive heart and chronic kidney disease with heart failure and stage 1 through stage 4 chronic kidney disease, or unspecified chronic kidney disease; I42.9 Cardiomyopathy, unspecified; I50.40 Unspecified combined systolic (congestive) and diastolic (congestive) heart failure; E87.5 Hyperkalemia; R33.9 Retention of urine, unspecified; E78.5 Hyperlipidemia, unspecified; I25.10 Atherosclerotic heart disease of native coronary artery without angina pectoris; Z98.61 Coronary angioplasty status; N18.9 Chronic kidney disease, unspecified; I27.20 Pulmonary hypertension, unspecified; M19.90 Unspecified osteoarthritis, unspecified site
CPT/HCPCS: 36415; 36600; 71045; 76770; 80053; 80061; 80307; 81003; 82248; 82378; 82550; 82607; 82746; 82803; 82977; 83036; 83605; 83735; 83880; 84100; 84443; 84484; 84550; 85007; 85025; 86140; 86304; 89050; 93005; 93306; 94640; 94660; 94664; 96365; 96368; 99285; 99291; J7030